=== PATIENT | male | born 1930 | race Caucasian/White ===

== ENCOUNTER 2016-06-29 11:15 | Emergency (ER) | payer MEDICARE, BC ==
[2016-06-29 12:37] LABS: Hematocrit 36 % (42-52); Mean Corpuscular HGB Conc 33 g/dl (31-36); Mean Corpuscular Hemoglobin 31 pg (27-31); Mean Corpuscular Volume 92 fL (80-94); Mean Platelet Volume 9 um3 (7.4-10.4); Red Blood Count 3.92 10^6/ul (4.0-5.4); Red Cell Distribution Width 14 % (10.5-15); White Blood Count 5.3 10^3/ul (3.5-10.8)
[2016-06-29 12:45] LABS: Albumin 3.8 g/dL (3.2-5.2); BUN/Creatinine Ratio 16.1 (8-20); Calcium 8.8 mg/dL (8.6-10.3); EGFR African American 46.6 (>60); EGFR Non-African American 36.2 (>60); Globulin 2.4 g/dL (2-4); Magnesium 2.2 mg/dL (1.9-2.7); Total Bilirubin 0.7 mg/dL (0.2-1.0); Total Protein 6.2 g/dL (6.4-8.9)
[2016-06-29 12:55] LABS: TSH (Thyroid Stimulating Horm) 2.63 mcIU/mL (0.34-5.60)
[2016-06-29 12:59] LABS: Potassium 4.9 mmol/L (3.5-5.0)
--- NOTE | 2016-06-29 13:08 | RAD ---
INDICATION: Syncope. COMPARISON: Comparison is made with a prior chest x-ray study from March 09, 2014. TECHNIQUE: A portable view of the chest was obtained. FINDINGS: There is a dual-chamber transvenous pacemaker present. The patient appears to be status post coronary artery bypass surgery. The heart is within normal limits in size. The lungs are clear. No pleural effusion is seen. IMPRESSION: POSTSURGICAL CHANGES, NO EVIDENCE FOR ACUTE FINDING.
[2016-06-29 16:37] VITALS: BP 135/50
--- NOTE | 2016-06-29 19:25 | ED ---
Carola Kidd Janilya, scribed for Luis Joseph MD on 06/29/16 at 1218 . Syncope/Near Syncope - HPI Summary HPI Summary: [place] 85 y/o [place] [facility]/ a sudden episode of near-syncope that occurred today at [employer] at approx 1100. 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 Pt reports dizziness, lightheadedness, and feeling of "almost passing out". A merchandise flow team member guided pt out by his arm outside , and his condition improved. Pt states he ate normally and did not have any urinary/bowel problems. Pt denies nausea, diaphoresis, pain, LOC. PMHx heart problems, pacemaker. No PMHx DM. - History Of Current Complaint Chief Complaint: EDSyncope Time Seen by Provider: 06/29/16 12:05 Hx Obtained From: Patient Onset/Duration: Sudden Onset, Lasting Hours, Resolved Context: Witnessed Associated Head Trauma: No Aggravating Factor(s): Nothing Alleviating Factor(s): Other - going outside Associated Signs And Symptoms: Dizzy, Lightheadedness - Allergies/Home Medications Allergies/Adverse Reactions: Allergies Allergy/AdvReac Type Severity Reaction Status Date / Time Niacin [From Niaspan] Allergy Mild Flushing, Verified 08/27/15 09:39 RASH PMH/Surg Hx/FS Hx/Imm Hx Endocrine/Hematology History: Denies: Hx Bone Marrow Disease, Hx Diabetes, Hx Sickle Cell Disease, Hx Thyroid Disease Cardiovascular History: Reports: Hx Angina, Hx Auto Implanted Cardiovert Defib, 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, Hx Hypertension - ON MEDICATION FOR , Hx Pacemaker/ICD - MEDTRONICA, Hx Syncope, Hx Valvular Heart Disease - UNSURE IF VALVE PROBLEMS, Other Cardiovascular Problems/Disorders Respiratory History: Denies: Hx Asthma, Hx Chronic Obstructive Pulmonary Disease (COPD) GI History: Reports: Hx Gastroesophageal Reflux Disease, Other GI Disorders - POLYP REMOVED Denies: Hx Ulcer History: Reports: Hx Renal Disease - CHRONIC RENAL INSUFFICIENCY, Other Problems/Disorders - BPH Musculoskeletal History: Reports: Hx Arthritis - JOINT REPLACEMENT, Other Musculoskeletal History - MUSCLE PROBLEMS IN LOWER BACK 05/2012- NO PROBLEM NOW Sensory History: Reports: Hx Cataracts - JOSE, Hx Contacts or Glasses, Hx Hearing Aid - JOSE Opthamlomology History: Reports: Hx Cataracts - JOSE, Hx Contacts or Glasses Neurological History: Reports: Hx Migraine - NONE IN THE PAST 2 MONTHS- USUALLY AFFECTS VISION, Hx Transient Ischemic Attacks (TIA) Psychiatric History: Denies: Hx Panic Disorder - Surgical History Surgery Procedure, Year, and Place: 1993-LEFT HIP REPLACEMENTREVISION LEFT HIP- [id number], [id number] E[facility] - CATARACT;RIGHT TOTAL KNEE-2008- [id number] EYE CATARACTBypass Surgeries [id number] 2005EVENT MONITOR - DR BYRD-LARGE COLON MASS/POLYP w/ APPE- [id number] KNEE [id number]/2011- EVENT MONITORCARPAL TUNNEL RELEASE-RIGHT. RIGHT KNEE IN [facility] Hx Anesthesia Reactions: No Infectious Disease History: No Infectious Disease History: Reports: Hx Shingles Denies: Hx Hepatitis, Hx Human Immunodeficiency Virus (HIV), Hx of Known/ Suspected MRSA, Hx Tuberculosis, Hx Known/Suspected VRE, Hx Known/Suspected VRSA , History Other Infectious Disease, Traveled Outside the [place] in Last 30 Days - Family History Known Family History: Positive: Hypertension - Social History Lives: With Family Alcohol Use: Daily Alcohol Amount: ONE OUNCE PORT nightly Substance Use Type: Reports: None Hx Tobacco Use: No Smoking Status (MU): Never Smoked Tobacco Have You Smoked in the Last Year: No Review of Systems Constitutional: Negative - pt denies feeling of pain Negative: Skin Diaphoresis Negative: Nausea Genitourinary: Negative - see hpi Neurological: Other - dizziness, lightheadedness, Positive: Syncope - near-syncope All Other Systems Reviewed And Are Negative: Yes Physical Exam Triage Information Reviewed: Yes Vital Signs On Initial Exam: Initial Vitals Temp Pulse Resp BP Pulse Ox 98.4 F 64 16 160/67 97 06/29/16 11:19 06/29/16 11:19 06/29/16 11:19 06/29/16 11:19 06/29/16 11:19 Vital Signs Reviewed: Yes Appearance: Positive: Well-Appearing, No Pain Distress Skin: Positive: Warm, Skin Color Reflects Adequate Perfusion, Dry Head/Face: Positive: Normal Head/Face Inspection Eyes: Positive: Normal ENT: Positive: Normal ENT inspection Neck: Positive: Supple, Nontender Respiratory/Lung Sounds: Positive: Clear to Auscultation, Breath Sounds Present Cardiovascular: Positive: Murmur - soft systolic ejection murmur Abdomen Description: Positive: Nontender, Soft Bowel Sounds: Positive: Present Musculoskeletal: Positive: Normal Neurological: Positive: Normal Psychiatric: Positive: Normal, Affect/Mood Appropriate Diagnostics - Vital Signs Vital Signs Temp Pulse Resp BP Pulse Ox 06/29/16 11:19 98.4 F 64 16 160/67 97 - Laboratory Lab Results: Lab Results 06/29/16 06/29/16 06/29/16 Range/Units 11:45 11:45 11:45 WBC 5.3 (3.5-10.8) 10^3/ul RBC 3.92 L (4.0-5.4) 10^6/ul Hgb 12.0 L (14.0-18.0) g/dl Hct 36 L (42-52) % MCV 92 (80-94) fL MCH 31 (27-31) pg MCHC 33 (31-36) g/dl RDW 14 (10.5-15) % Plt Count 127 L (150-450) 10^3/ul MPV 9 (7.4-10.4) um3 Neut % (Auto) 76.8 (38-83) % Lymph % (Auto) 13.1 L (25-47) % Cross % (Auto) 7.6 (1-9) % Eos % (Auto) 1.7 (0-6) % Baso % (Auto) 0.8 (0-2) % Absolute Neuts (auto) 4.1 (1.5-7.7) 10^3/ul Absolute Lymphs (auto) 0.7 L (1.0-4.8) 10^3/ul Absolute Monos (auto) 0.4 (0-0.8) 10^3/ul Absolute Eos (auto) 0.1 (0-0.6) 10^3/ul Absolute Basos (auto) 0 (0-0.2) 10^3/ul Absolute Nucleated RBC 0 10^3/ul Nucleated RBC % 0.1 Sodium 131 L (133-145) mmol/L Potassium 4.9 (3.5-5.0) mmol/L Chloride 100 L (101-111) mmol/L Carbon Dioxide 25 (22-32) mmol/L Anion Gap 6 (2-11) mmol/L BUN 29 H (6-24) mg/dL Creatinine 1.80 H (0.67-1.17) mg/dL Est GFR ( Amer) 46.6 (>60) Est GFR (Non-Af Amer) 36.2 (>60) BUN/Creatinine Ratio 16.1 (8-20) Glucose 107 H (70-100) mg/dL Lactic Acid 0.7 (0.5-2.0) mmol/L Calcium 8.8 (8.6-10.3) mg/dL Magnesium 2.2 (1.9-2.7) mg/dL Total Bilirubin 0.70 (0.2-1.0) mg/dL AST 21 (13-39) U/L ALT 11 (7-52) U/L Alkaline Phosphatase 74 (34-104) U/L Troponin I 0.00 (<0.04) ng/mL Total Protein 6.2 L (6.4-8.9) g/dL Albumin 3.8 (3.2-5.2) g/dL Globulin 2.4 (2-4) g/dL Albumin/Globulin Ratio 1.6 (1-3) TSH 2.63 (0.34-5.60) mcIU/mL 06/29/16 Range/Units 15:04 WBC (3.5-10.8) 10^3/ul RBC (4.0-5.4) 10^6/ul Hgb (14.0-18.0) g/dl Hct (42-52) % MCV (80-94) fL MCH (27-31) pg MCHC (31-36) g/dl RDW (10.5-15) % Plt Count (150-450) 10^3/ul MPV (7.4-10.4) um3 Neut % (Auto) (38-83) % Lymph % (Auto) (25-47) % Cross % (Auto) (1-9) % Eos % (Auto) (0-6) % Baso % (Auto) (0-2) % Absolute Neuts (auto) (1.5-7.7) 10^3/ul Absolute Lymphs (auto) (1.0-4.8) 10^3/ul Absolute Monos (auto) (0-0.8) 10^3/ul Absolute Eos (auto) (0-0.6) 10^3/ul Absolute Basos (auto) (0-0.2) 10^3/ul Absolute Nucleated RBC 10^3/ul Nucleated RBC % Sodium (133-145) mmol/L Potassium (3.5-5.0) mmol/L Chloride (101-111) mmol/L Carbon Dioxide (22-32) mmol/L Anion Gap (2-11) mmol/L BUN (6-24) mg/dL Creatinine (0.67-1.17) mg/dL Est GFR ( Amer) (>60) Est GFR (Non-Af Amer) (>60) BUN/Creatinine Ratio (8-20) Glucose (70-100) mg/dL Lactic Acid (0.5-2.0) mmol/L Calcium (8.6-10.3) mg/dL Magnesium (1.9-2.7) mg/dL Total Bilirubin (0.2-1.0) mg/dL AST (13-39) U/L ALT (7-52) U/L Alkaline Phosphatase (34-104) U/L Troponin I 0.01 (<0.04) ng/mL Total Protein (6.4-8.9) g/dL Albumin (3.2-5.2) g/dL Globulin (2-4) g/dL Albumin/Globulin Ratio (1-3) TSH (0.34-5.60) mcIU/mL Result Diagrams: 06/29/16 11:45 06/29/16 11:45 Lab Statement: Any lab studies that have been ordered have been reviewed, and results considered in the medical decision making process. - Radiology CXR Xray Interpretation: No Acute Changes - IMPRESSION: POSTSURGICAL CHANGES, NO EVIDENCE FOR ACUTE FINDING. Radiology Interpretation Completed By: Radiologist - EKG 1113 Cardiac Rate: NL - 69 bpm EKG Interpretation: atrial paced rhythm, normal rate Re-Evaluation - Re-Evaluation First Eval Re-Evaluation Time: 13:32 Change: Improved Comment: pt states that he feels normal. Course/Dx Course Of Treatment: Brad Lundberg had a near syncopal periond starting around 1100 that he felt coming on gradually and never had a LOC. He was observed here on the monitor and two troponins were negative. This sounds vagal to me and he will be D/C'd for F/U with his MD. - Diagnoses Provider Diagnoses: Near syncope Discharge - Discharge Plan Condition: Stable Disposition: HOME Patient Education Materials: Near Syncope (ED) Referrals: Andrez Porter MD [Primary Care Provider] - 2 Days Additional Instructions: Follow up with your primary care physician in 2 days. The documentation as recorded by the Carola hoang Janilya accurately reflects the service I personally performed and the decisions made by me, Luis Joseph MD.
== END 2016-06-29 16:37 | disposition home or self-care (01) ==
LOC: ED 11:15
DX: R55 Syncope and collapse (principal)
CPT/HCPCS: 36415; 71010; 80053; 83605; 83735; 84443; 84484; 85025; 93005; 99284

== ENCOUNTER → 2016-09-02 06:20 | Day surgery (SDC) | payer MEDICARE, OTHER ==
[~2016-09-02 06:20] MED LIST: Buffered Lidocaine 1% SYRIN* 3 ML/SYR SYRINGE INTRADERM ONE; Bupivacaine 0.25% W/EPI* 50 ML VIAL ONE; Lidocaine 2% PF* 5 ML VIAL ONE; Propofol* 10 MG/ML 20 ML BTL IV PUSH ONE; ceFAZolin 2 GM PREMIX(*) 2 GM/50 ML BAG IVPB ONE; fentaNYL* 50 MCG/ML 2 ML VIAL (100 MCG VIAL) ONE
[2016-09-02 10:26] VITALS: BP 150/70
== END | disposition home or self-care (01) ==
LOC: OR 06:20
PROVIDERS: ATTEND Plastic Surgery
DX: L57.0 Actinic keratosis (principal); C44.629 Squamous cell carcinoma of skin of left upper limb, including shoulder; I25.10 Atherosclerotic heart disease of native coronary artery without angina pectoris; Z95.1 Presence of aortocoronary bypass graft; Z95.5 Presence of coronary angioplasty implant and graft; I12.9 Hypertensive chronic kidney disease with stage 1 through stage 4 chronic kidney disease, or unspecified chronic kidney disease; N18.9 Chronic kidney disease, unspecified; Z95.0 Presence of cardiac pacemaker; Z96.651 Presence of right artificial knee joint; Z96.642 Presence of left artificial hip joint; Z79.82 Long term (current) use of aspirin
CPT/HCPCS: 88305; 88331; 88332; J0690; J2704; J3010

== ENCOUNTER 2016-10-25 16:37 | Emergency (ER) | payer MEDICARE, OTHER ==
--- NOTE | 2016-10-25 17:51 | UC ---
Skin Complaint HPI - HPI Summary HPI Summary: PATIENT PRESENTS WITH BROWN SMALL TICK SUPERIOR AND LATERAL TO THE LEFT ELBOW. HE STATES THE TICK MAY HAVE BEEN ON FOR A FEW HOURS, BUT NO MORE THAN 24 HOURS. DENIES RASH, EM, JOINT ACHES, OR MARTINEZ. HE IS OTHERWISE HEALTHY. - History of Current Complaint Hx Obtained From: Patient, Family/Supervisor Of Operations Onset/Duration: Sudden Onset Skin Exposure Onset/Duration: Minutes Ago Timing: Constant Onset Severity: Mild Current Severity: Mild Pain Intensity: 2 Pain Scale Used: 0-10 Numeric Location: Other - LEFT ARM Aggravating: Nothing Alleviating: Nothing Associated Signs & Symptoms: Positive: Negative Related History: Possible Reaction to: Insect <Liat Byrne - Last Filed: 10/25/16 17:46> <Reina Coughlin - Last Filed: 10/25/16 18:58> - History of Current Complaint Chief Complaint: UCSkin Time Seen by Provider: 10/25/16 17:10 Stated Complaint: TICK - Allergy/Home Medications Allergies/Adverse Reactions: Allergies Allergy/AdvReac Type Severity Reaction Status Date / Time Niacin [From Niaspan] Allergy Mild Flushing, Verified 09/02/16 06:27 RASH POISON TAMMY Allergy Unknown Uncoded 09/02/16 06:27 Reaction Details Review of Systems Constitutional: Negative Skin: Other - SMALL ERYTHEMATOUS AREA SURROUNDING BROWN TICK WITHOUT EM RASH Eyes: Negative Respiratory: Negative Cardiovascular: Negative Motor: Negative Neurovascular: Negative Psychological: Negative All Other Systems Reviewed And Are Negative: Yes <Liat Byrne - Last Filed: 10/25/16 17:46> PMH/Surg Hx/FS Hx/Imm Hx Previously Healthy: Yes Endocrine History Of: Denies: Diabetes, Thyroid Disease Cardiovascular History Of: Reports: Cardiac Disorders - bypass 7, Hypertension - ON MEDICATION FOR, Pacemaker/ICD - [employer]ON[employer] Respiratory History Of: Reports: Bronchitis - HX OF IN THE PAST Denies: COPD, Asthma GI/ History Of: Reports: Renal Disease - CHRONIC RENAL INSUFFICIENCY Denies: Ulcer Neurological History Of: Reports: TIA, Migraine - HX OF- PATIENT STATES NOT RECENTLY - Surgical History Surgical History: Yes Surgery Procedure, Year, and Place: 1993-LEFT HIP REPLACEMENTREVISION LEFT HIP- [id number], [id number] EYE - CATARACT;RIGHT TOTAL KNEE-2008- [id number] EYE CATARACTBypass Surgeries [id number] 2005EVENT MONITOR - DR BYRD-LARGE COLON MASS/POLYP w/ APPE- [id number]--[id number] KNEE [id number]/2011- EVENT MONITORCARPAL TUNNEL RELEASE-RIGHT. RIGHT KNEE IN [facility] - Family History Known Family History: Positive: None, Hypertension - Social History Occupation: Retired Lives: With Family Alcohol Use: Occasionally Alcohol Amount: ONE OUNCE PORT nightly Substance Use Type: None Smoking Status (MU): Never Smoked Tobacco Have You Smoked in the Last Year: No - Immunization History Most Recent Influenza Vaccination: 2012 Most Recent Tetanus Shot: unknown Most Recent Pneumonia Vaccination: 2006 <Liat Byrne - Last Filed: 10/25/16 17:46> Physical Exam Triage Information Reviewed: Yes Appearance: Well-Appearing, No Pain Distress, Well-Nourished Vital Signs: Initial Vital Signs Temp 96.6 F 10/25/16 17:04 Pulse 64 10/25/16 17:04 Resp 18 10/25/16 17:04 Pulse Ox 98 10/25/16 17:04 Vital Signs Reviewed: Yes Eye Exam: Normal Eyes: Positive: Conjunctiva Clear Neck exam: Normal Neck: Positive: Supple, No Lymphadenopathy Respiratory Exam: Normal Respiratory: Positive: Chest non-tender Cardiovascular Exam: Normal Cardiovascular: Positive: RRR Musculoskeletal: Positive: Strength Intact, ROM Intact Neurological Exam: Normal Psychological: Positive: Normal Response To Family Skin: Positive: Other - SMALL ERTYEMATOUS AREA OVER LEFT ELBOW WITH BROWN TICK ATTACHED IN CENTER. NO EM RASH <Liat Byrne - Last Filed: 10/25/16 17:46> Vital Signs: Initial Vital Signs Temp 96.6 F 10/25/16 17:04 Pulse 64 10/25/16 17:04 Resp 18 10/25/16 17:04 Pulse Ox 98 10/25/16 17:04 <Reina Coughlin - Last Filed: 10/25/16 18:58> Course/Dx - Course Course Of Treatment: SMALL ERYTHEMATOUS AREA SUPERIOR AND LATERAL TO THE LEFT ELBOW WITHOUT EM RASH. TICK ATTACHED FOR LESS THAN 24 HOURS. BROWN TICK, NOT LIKELY A DEER TICK. NO NEED FOR PROPHYLAXIS BASED ON THE TIMING AND COLOR OF TICK. PATIENT AGREES AND WILL FOLLOW UP NEEDED. GIULIA DISH SOAP TO LOOSEN TICK AND TICK TWISTERS WITH EFFECT. - Differential Diagnoses - Skin Complaint Differential Diagnoses: Tick Born Illness, Other - TICK, DEER TICK, OTHER INSECT - Diagnoses Provider Diagnoses: TICK BITE <Liat Byrne - Last Filed: 10/25/16 17:46> Discharge <Liat Byrne - Last Filed: 10/25/16 17:46> <Reina Coughlin - Last Filed: 10/25/16 18:58> - Discharge Plan Condition: Stable Disposition: HOME Patient Education Materials: Tick Bite (ED) Referrals: Andrez Porter MD [Primary Care Provider] - Additional Instructions: Follow up with PCP as needed As discussed, this tick bite does not require antibiotics and you are at a low risk for Lyme disease based on the timing of the tick duration and the type/ color of tick removed. Attestation Statement User Type: Provider - I was available for consult. This patient was seen by the SONY. The patient was not presented to, seen by, or examined by me. <Reina Coughlin - Last Filed: 10/25/16 18:58>
== END 2016-10-25 17:55 | disposition home or self-care (01) ==
LOC: UCEAST 16:37
DX: S50.362A Insect bite (nonvenomous) of left elbow, initial encounter (principal); W57.XXXA Bitten or stung by nonvenomous insect and other nonvenomous arthropods, initial encounter; Y93.9 Activity, unspecified
CPT/HCPCS: 99212; G0463

== ENCOUNTER 2017-06-22 19:17 | Emergency (ER) | payer MEDICARE, BC ==
[2017-06-22 19:31] VITALS: BP 154/66
[2017-06-22] MEDS ORDERED: Tetan/Diph/Pertus SYR(Tdap)* 0.5 ML SYR(BOOSTRIX) use SYR IM ONE (19:49)
--- NOTE | 2017-06-22 19:53 | UC ---
Laceration HPI - HPI Summary HPI Summary: Pt presents with laceration to left middle finger sustained about a half hour prior to his arrival to . He was using a table saw to cut kindling for his fire place, when the wood slipped and he cut his finger. Denies previous injury , numbness, tingling, or decreased sensation. Unsure when last tetanus shot was. - History Of Current Complaint Chief Complaint: UCLaceration Stated Complaint: FINGER LAC Time Seen by Provider: 06/22/17 19:38 Hx Obtained From: Patient Laceration Location: Finger Mechanism Of Injury: Sharp Trauma Onset/Duration: Sudden Onset Severity: Mild Pain Intensity: 2 Pain Scale Used: 0-10 Numeric - Allergies/Home Medications Allergies/Adverse Reactions: Allergies Allergy/AdvReac Type Severity Reaction Status Date / Time Niacin [From Niaspan] Allergy Mild Flushing, Verified 06/22/17 19:31 RASH POISON TAMMY Allergy Unknown Uncoded 06/22/17 19:31 Reaction Details PMH/Surg Hx/FS Hx/Imm Hx - Additional Past Medical History Additional PMH: BPH Endocrine History: Dyslipidemia Cardiovascular History: Cardiac Disease - Surgical History Surgical History: Yes Surgery Procedure, Year, and Place: 1993-LEFT HIP REPLACEMENTREVISION LEFT HIP- [id number], [id number] EYE - CATARACT;RIGHT TOTAL KNEE-2008- [id number] EYE CATARACTBypass Surgeries [id number] 2004EVENT MONITOR - DR BYRD-LARGE COLON MASS/POLYP w/ APPE- [id number]--WLWHL KNEE [id number]/2011- EVENT MONITORCARPAL TUNNEL RELEASE-RIGHT. RIGHT KNEE IN [facility] - Family History Known Family History: Positive: None, Hypertension - Social History Occupation: Retired Lives: With Family Alcohol Use: Occasionally Alcohol Amount: ONE OUNCE PORT nightly Substance Use Type: None Smoking Status (MU): Never Smoked Tobacco Have You Smoked in the Last Year: No - Immunization History Most Recent Influenza Vaccination: 2012 Most Recent Tetanus Shot: unknown Most Recent Pneumonia Vaccination: 2006 Review of Systems Constitutional: Negative Skin: Other - 0.5cm laceration to left middle finger Motor: Negative Neurovascular: Negative Musculoskeletal: Negative Neurological: Negative Psychological: Negative All Other Systems Reviewed And Are Negative: Yes Physical Exam Triage Information Reviewed: Yes Appearance: Well-Appearing, No Pain Distress, Well-Nourished Vital Signs: Initial Vital Signs Temp 98.6 F 06/22/17 19:28 Pulse 66 06/22/17 19:28 Resp 12 06/22/17 19:28 BP 154/66 06/22/17 19:28 Pulse Ox 99 06/22/17 19:28 Vital Signs Reviewed: Yes Respiratory: Positive: Normal breath sounds, No respiratory distress Cardiovascular: Positive: Pulses Normal, Brisk Capillary Refill - Left middle finger distal to laceration Musculoskeletal: Positive: Strength Intact - Left middle finger, ROM Intact - Left middle finger, No Edema - Left middle finger, Other: - NTTP Left middle finger Neurological: Positive: Alert, Other: - Sensations intact Left middle finger above and below point of laceration Psychological: Positive: Age Appropriate Behavior Skin: Positive: Other - 0.5cm vertical linear laceration along the midline of the nail. Nail is not avulsed. Bleeding was stopped with direct pressure. No cuticle or nail fold involvement. Laceration Course/Dx - Course/Dx Course Of Treatment: Finger XR: NO EVIDENCE FOR FRACTURE, IF THE PATIENT'S SYMPTOMS PERSIST RECOMMEND FOLLOW-UP IMAGING. Nail laceration - nail is not avulsed and will likely remain in place. The wound was pressure irrigated with 100mL saline. Dermabond was placed at the site of the laceration to aide integrity and a telfa and tube gauze dressing was placed. - Differential Dx - Laceration/Wound Provider Diagnoses: 0.5cm laceration to middle finger nail Discharge - Discharge Plan Condition: Stable Disposition: HOME Patient Education Materials: Skin Adhesive Care (ED) Referrals: No Primary Care Phys,NOPCP [Primary Care Provider] - Additional Instructions: If you develop a fever, shortness of breath, chest pain, new or worsening symptoms - please call your PCP or go to the ED. Your blood pressure was high at todays visit. Please see your primary provider within 4 weeks for recheck and re-evaluation.
--- NOTE | 2017-06-22 20:11 | RAD ---
INDICATION: Laceration to distal left middle finger COMPARISON: None. TECHNIQUE: 3 views of the left middle finger were obtained. FINDINGS: The bones are normal alignment. Joint spaces appear maintained. No fracture is seen. IMPRESSION: NO EVIDENCE FOR FRACTURE, IF THE PATIENT'S SYMPTOMS PERSIST RECOMMEND FOLLOW-UP IMAGING.
== END 2017-06-22 20:50 | disposition home or self-care (01) ==
LOC: UCEAST 19:17
DX: S61.213A Laceration without foreign body of left middle finger without damage to nail, initial encounter (principal); W31.2XXA Contact with powered woodworking and forming machines, initial encounter; Y93.89 Activity, other specified; Y92.009 Unspecified place in unspecified non-institutional (private) residence as the place of occurrence of the external cause; Z72.89 Other problems related to lifestyle
CPT/HCPCS: 12001; 73140; 90715; 99211; G0463

== ENCOUNTER 2017-07-05 11:28 | Emergency (ER) | payer MEDICARE, BC ==
[2017-07-05 11:55] VITALS: BP 102/64
--- NOTE | 2017-07-05 12:01 | UC ---
Respiratory Complaint HPI - HPI Summary HPI Summary: Pt presents accompanied by with complaints of vomiting, SOB, cough, and elevated BP. Pt is shallow breathing - the majority of the history is provided by his . She tells me that pt has had a cough for 1 week that has been getting progressively worse. Hasn't been eating much and has been very fatigued. 2.5 days ago he began vomiting and not tolerating food or liquids po. Yesterday his BP was 214/96 per and they called his PCP who, I am told, started him on a new medication - but he has been unable to take it due to vomiting. Pt says that he does feel SOB and that he cannot get a good breath. - History of Current Complaint Chief Complaint: UCGeneralIllness Stated Complaint: RESP COMPLAINT Time Seen by Provider: 07/05/17 12:01 Hx Obtained From: Patient Onset/Duration: Gradual Onset Severity Initially: Moderate Severity Currently: Severe Pain Intensity: 0 Character: Cough: Productive - Allergies/Home Medications Allergies/Adverse Reactions: Allergies Allergy/AdvReac Type Severity Reaction Status Date / Time Niacin [From Niaspan] Allergy Mild Flushing, Verified 07/05/17 11:44 RASH POISON TAMMY Allergy Unknown Uncoded 07/05/17 11:44 Reaction Details Home Medications: Home Medications Donepezil TAB* [Aricept 5 MG TAB*] 10 mg PO DAILY 07/05/17 [History Confirmed ] Metoprolol Succinate [Metoprolol Succinate ER] 25 mg PO DAILY 07/05/17 [History Confirmed 07/05/17] PMH/Surg Hx/FS Hx/Imm Hx - Additional Past Medical History Additional PMH: BPH Endocrine History: Dyslipidemia Cardiovascular History: Hypertension - Surgical History Surgical History: Yes Surgery Procedure, Year, and Place: 1993-LEFT HIP REPLACEMENTREVISION LEFT HIP- [id number], [id number] EYE - CATARACT;RIGHT TOTAL KNEE-2008- [id number] EYE CATARACTBypass Surgeries [id number] 2004EVENT MONITOR - DR BYRD-LARGE COLON MASS/POLYP w/ APPE- [id number]--YLBRA KNEE [id number]/2011- EVENT MONITORCARPAL TUNNEL RELEASE-RIGHT. RIGHT KNEE IN [facility] - Family History Known Family History: Positive: None, Hypertension - Social History Occupation: Retired Lives: With Family Alcohol Use: Occasionally Alcohol Amount: ONE OUNCE PORT nightly Substance Use Type: None Smoking Status (MU): Never Smoked Tobacco Have You Smoked in the Last Year: No - Immunization History Most Recent Influenza Vaccination: 2012 Most Recent Tetanus Shot: unknown Most Recent Pneumonia Vaccination: 2006 Review of Systems Constitutional: Fatigue Skin: Negative Eyes: Negative ENT: Negative Respiratory: Shortness Of Breath, Cough Cardiovascular: Negative Gastrointestinal: Vomiting, Diarrhea, Nausea Genitourinary: Negative Neurovascular: Negative Musculoskeletal: Negative Neurological: Weakness Psychological: Negative All Other Systems Reviewed And Are Negative: Yes Physical Exam Triage Information Reviewed: Yes Appearance: Ill-Appearing, Thin, Other: - Pt is sitting slumped over in the chair with slow and shallow breathing. Coughing productive sputum Vital Signs: Initial Vital Signs Temp 97.3 F 07/05/17 11:48 Pulse 61 07/05/17 11:48 Resp 14 07/05/17 11:48 BP 102/64 07/05/17 11:48 Pulse Ox 95 07/05/17 11:48 Vital Signs Reviewed: Yes Eyes: Positive: Conjunctiva Clear. Negative: Conjunctiva Inflamed, Discharge ENT: Positive: Hearing grossly normal, Pharynx normal, Nasal congestion, Nasal drainage, TMs normal, Uvula midline. Negative: Pharyngeal erythema, TM bulging , TM dull, TM red, Tonsillar swelling, Tonsillar exudate, Hoarse voice, Sinus tenderness Neck: Positive: Supple, Nontender, No Lymphadenopathy Respiratory: Positive: Chest non-tender, No accessory muscle use, Decreased breath sounds, Crackles - RLL Cardiovascular: Positive: RRR, No Murmur, Pulses Normal Neurological: Positive: Fatigued Skin: Negative: rashes UC Diagnostic Evaluation - Laboratory O2 Sat by Pulse Oximetry: 95 Respiratory Course/Dx - Course Course Of Treatment: Due to his inability to tolerate po liquids or solids, diarrhea, shallow breathing and comorbidities - I have advised the patient to seek further medical evaluation in the ED. They refused ambulance transfer and elected to go by private vehicle. Left in stable condition - Differential Dx/Diagnosis Provider Diagnoses: Vomiting. Diarrhea. Cough. SOB Discharge - Discharge Plan Condition: Stable Disposition: OTHER Discharge Disposition Comment: to [facility] [place] private car Referrals: No Primary Care Phys,NOPCP [Primary Care Provider] - Additional Instructions: The provider that examined you today recommended you go to the Emergency Room for further evaluation of your shortness of breath, vomiting, and elevated blood pressure yesterday.
== END 2017-07-05 12:20 ==
LOC: UCEAST 11:28
DX: R11.10 Vomiting, unspecified (principal); R19.7 Diarrhea, unspecified; R05 Cough; R06.02 Shortness of breath; N40.0 Benign prostatic hyperplasia without lower urinary tract symptoms; E78.5 Hyperlipidemia, unspecified; I10 Essential (primary) hypertension; Z96.642 Presence of left artificial hip joint
CPT/HCPCS: 99212; G0463

== ENCOUNTER 2017-07-05 12:38 | Emergency (ER) | payer MEDICARE, BC ==
[2017-07-05 15:05] LABS: ABS Basophils 0 10^3/ul (0-0.2); ABS Eosinophils 0 10^3/ul (0-0.6); ABS Lymphocytes 0.7 10^3/ul (1.0-4.8); ABS Monocytes 0.6 10^3/ul (0-0.8); ABS Neutrophils 7.4 10^3/ul (1.5-7.7); ABS Nucleated RBC 0 10^3/ul; Eosinophil % 0.1 % (0-6); Hematocrit 43 % (42-52); Hemoglobin 14.9 g/dl (14.0-18.0); Lymphocyte % 8.2 % (25-47); Mean Corpuscular HGB Conc 35 g/dl (31-36); Mean Corpuscular Hemoglobin 31 pg (27-31); Mean Corpuscular Volume 90 fL (80-94); Mean Platelet Volume 8 um3 (7.4-10.4); Nucleated Red Blood Cells % 0.2; Platelet Count 148 10^3/ul (150-450); Red Blood Count 4.78 10^6/ul (4.0-5.4); Red Cell Distribution Width 13 % (10.5-15); White Blood Count 8.7 10^3/ul (3.5-10.8)
[2017-07-05] MEDS ORDERED: Ondansetron INJ* 2 MG/ML VIAL ONE (15:07)
[2017-07-05] MEDS ORDERED: NS 0.9% 1000 ML* 1,000 ML IV ONE (15:16)
[2017-07-05] MEDS ORDERED: Ondansetron INJ* 2 MG/ML VIAL IV ONE (15:16)
[2017-07-05 15:21] LABS: EGFR Non-African American 48.3 (>60)
--- NOTE | 2017-07-05 15:31 | RAD ---
INDICATION: Cough. Weakness COMPARISON: June 29, 2016 TECHNIQUE: PA and lateral dual-energy views were obtained. FINDINGS: Bones/Soft Tissues: There are no acute bony findings. There is sternotomy. There is left-sided cardiac pacemaker and a cardiac event monitor Cardiomediastinal: The cardiomediastinal silhouette is normal. Lungs: There are no infiltrates. There is mild hyperinflation Pleura: There are no pleural effusions. Other: None IMPRESSION: NO ACTIVE DISEASE
--- NOTE | 2017-07-05 15:32 | RAD ---
INDICATION: Cough. Weakness. Nausea and vomiting. COMPARISON: None TECHNIQUE: Erect and supine views of the abdomen are submitted. FINDINGS: Bones: There are no acute bony findings. There is spondylitic change of the lumbar spine. There is left hip arthroplasty Soft tissues: The soft tissues appear normal. The psoas margins are sharp. Bowel gas pattern: Normal Calcifications: There are no abnormal calcifications. Other: None IMPRESSION: NO ACUTE DIAGNOSTIC FINDINGS.
[2017-07-05 18:01] LABS: Urine Appearance Cloudy; Urine Blood Negative (Negative); Urine Color Yellow; Urine Ketones Negative (Negative); Urine Protein 2+(100 mg/dL) (Negative); Urine Specific Gravity 1.013 (1.010-1.030); Urine Urobilinogen Negative (Negative)
[2017-07-05 18:14] VITALS: BP 147/88
--- NOTE | 2017-07-06 17:37 | ED ---
Brigitte Kidd Edward, scribed for Andrez Chavez MD on 07/05/17 at 1458 . Complex/Multi-Sys Presentation - HPI Summary HPI Summary: 86 y/o male presents to the ED c/o intermittent N/V starting two days ago. Pt has not been able to eat for the past wo days. This morning the pt threw up his food. Associated sx: confusion this morning, chills, rhinorrhea, cough. Pt's states he did not know where he was this morning, which was not his baseline. Denies ABD sx. Sx not aggravated or alleviated by anything. Denies sore throat. PMHx dementia. - History Of Current Complaint Chief Complaint: EDNauseaVomitDiarrh Time Seen by Provider: 07/05/17 14:55 Hx Obtained From: Patient Onset/Duration: Lasting Days Timing: Intermittent, Lasting: Associated Signs And Symptoms: Positive: Confusion, Cough, Nausea, Vomiting, Other - rhinorrhea, chills - Allergies/Home Medications Allergies/Adverse Reactions: Allergies Allergy/AdvReac Type Severity Reaction Status Date / Time Niacin [From [facility]] Allergy Mild Flushing, Verified 07/05/17 12:48 RASH POISON TAMMY Allergy Unknown Uncoded 07/05/17 12:48 Reaction Details Home Medications: Home Medications Cephalexin CAP* [Keflex 500 CAP*] 500 cap PO BID PRN 07/05/17 [History Confirmed 07/05/17] hydrALAZINE TAB* [Apresoline TAB*] 25 mg PO DAILY 07/05/17 [History Confirmed ] PMH/Surg Hx/FS Hx/Imm Hx Previously Healthy: No Endocrine/Hematology History: Denies: Hx Bone Marrow Disease, Hx Diabetes, Hx Sickle Cell Disease, Hx Thyroid Disease Cardiovascular History: Reports: Hx Angina, Hx Auto Implanted Cardiovert Defib, 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 SANDHU H&P Musculoskeletal History: Reports: Hx Arthritis - JOINT REPLACEMENT, Hx Tendonitis - HX OF, Other Musculoskeletal History - MUSCLE PROBLEMS IN LOWER BACK 05/2012- NO PROBLEM NOW Sensory History: Reports: Hx Cataracts - JOSE, Hx Contacts or Glasses - READING, Hx Hearing Aid - BILATERAL Opthamlomology History: Reports: Hx Cataracts - JOSE, Hx Contacts or Glasses - READING Neurological History: Reports: Hx Migraine - HX OF- PATIENT STATES NOT RECENTLY , Hx Transient Ischemic Attacks (TIA) Psychiatric History: Denies: Hx Panic Disorder - Surgical History Surgery Procedure, Year, and Place: 1993-LEFT HIP REPLACEMENTREVISION LEFT HIP- [id number], [id number] EYE - CATARACT;RIGHT TOTAL KNEE-2008- [id number] EYE CATARACTBypass Surgeries [id number] 2004EVENT MONITOR - DR BYRD-LARGE COLON MASS/POLYP w/ APPE- [id number]--RNSYN KNEE [id number]/2011- EVENT MONITORCARPAL TUNNEL RELEASE-RIGHT. RIGHT KNEE IN [facility] Hx Anesthesia Reactions: No Infectious Disease History: No Infectious Disease History: Reports: Hx Shingles Denies: Hx Hepatitis, Hx Human Immunodeficiency Virus (HIV), Hx of Known/ Suspected MRSA, Hx Tuberculosis, Hx Known/Suspected VRE, Hx Known/Suspected VRSA , History Other Infectious Disease, Traveled Outside the [place] in Last 30 Days - Family History Known Family History: Positive: None, Hypertension - Social History Alcohol Use: Occasionally Alcohol Amount: ONE OUNCE PORT nightly Substance Use Type: Reports: None Hx Tobacco Use: No Smoking Status (MU): Never Smoked Tobacco Have You Smoked in the Last Year: No Review of Systems Positive: Chills Eyes: Negative Positive: Nasal Discharge - rhinorrhea Cardiovascular: Negative Positive: Cough Positive: Vomiting, Nausea Genitourinary: Negative Musculoskeletal: Negative Skin: Negative Neurological: Other - confusion Psychological: Normal All Other Systems Reviewed And Are Negative: Yes Physical Exam - Summary Physical Exam Summary: VITAL SIGNS: Reviewed. GENERAL: Patient is an elderly fragile male who is lying comfortable in the stretcher. Patient is not in any acute respiratory distress. HEAD AND FACE: No signs of trauma. No ecchymosis, hematomas or skull depressions. No sinus tenderness. EYES: PERRLA, EOMI x 2, No injected conjunctiva, no nystagmus. EARS: Hearing grossly intact. Ear canals and tympanic membranes are within normal limits. MOUTH: Dry oral mucosa. NECK: Supple, trachea is midline, no adenopathy, no JVD, no carotid bruit, no c- spine tenderness, neck with full ROM. CHEST: Symmetric, no tenderness at palpation LUNGS: Crackles at both bases CVS: Regular rate and rhythm, S1 and S2 present, no murmurs or gallops appreciated. ABDOMEN: Soft, non-tender. No signs of distention. No rebound no guarding, and no masses palpated. Bowel sounds are normal. EXTREMITIES: FROM in all major joints, no edema, no cyanosis or clubbing. There is L calf tenderness. Positive Kisha's sign. NEURO: Alert and oriented x 3. No acute neurological deficits. Speech is normal and follows commands. SKIN: Dry and warm Triage Information Reviewed: Yes Vital Signs On Initial Exam: Initial Vitals Temp Pulse Resp BP Pulse Ox 97.2 F 68 16 113/58 96 07/05/17 12:48 07/05/17 12:48 07/05/17 12:48 07/05/17 12:48 07/05/17 12:48 Vital Signs Reviewed: Yes Diagnostics - Vital Signs Vital Signs Temp Pulse Resp BP Pulse Ox 07/05/17 12:48 97.2 F 68 16 113/58 96 - Laboratory Lab Results: Lab Results 07/05/17 07/05/17 07/05/17 Range/Units 14:56 14:56 14:56 WBC 8.7 (3.5-10.8) 10^3/ul RBC 4.78 (4.0-5.4) 10^6/ul Hgb 14.9 (14.0-18.0) g/dl Hct 43 (42-52) % MCV 90 (80-94) fL MCH 31 (27-31) pg MCHC 35 (31-36) g/dl RDW 13 (10.5-15) % Plt Count 148 L (150-450) 10^3/ul MPV 8 (7.4-10.4) um3 Neut % (Auto) 85.0 H (38-83) % Lymph % (Auto) 8.2 L (25-47) % Kemper % (Auto) 6.5 (1-9) % Eos % (Auto) 0.1 (0-6) % Baso % (Auto) 0.2 (0-2) % Absolute Neuts (auto) 7.4 (1.5-7.7) 10^3/ul Absolute Lymphs (auto) 0.7 L (1.0-4.8) 10^3/ul Absolute Monos (auto) 0.6 (0-0.8) 10^3/ul Absolute Eos (auto) 0 (0-0.6) 10^3/ul Absolute Basos (auto) 0 (0-0.2) 10^3/ul Absolute Nucleated RBC 0 10^3/ul Nucleated RBC % 0.2 Sodium 126 L (133-145) mmol/L Potassium 3.6 (3.5-5.0) mmol/L Chloride 90 L (101-111) mmol/L Carbon Dioxide 28 (22-32) mmol/L Anion Gap 8 (2-11) mmol/L BUN 19 (6-24) mg/dL Creatinine 1.40 H (0.67-1.17) mg/dL Est GFR ( Amer) 62.1 (>60) Est GFR (Non-Af Amer) 48.3 (>60) BUN/Creatinine Ratio 13.6 (8-20) Glucose 150 H (70-100) mg/dL Lactic Acid 1.2 (0.5-2.0) mmol/L Calcium 9.2 (8.6-10.3) mg/dL Total Bilirubin 0.80 (0.2-1.0) mg/dL AST 16 (13-39) U/L ALT 10 (7-52) U/L Alkaline Phosphatase 109 H (34-104) U/L Troponin I 0.00 (<0.04) ng/mL Total Protein 6.6 (6.4-8.9) g/dL Albumin 3.9 (3.2-5.2) g/dL Globulin 2.7 (2-4) g/dL Albumin/Globulin Ratio 1.4 (1-3) Lipase 15 (11.0-82.0) U/L Urine Color Urine Appearance Urine pH (5-9) Ur Specific Ethel (1.010-1.030) Urine Protein (Negative) Urine Ketones (Negative) Urine Blood (Negative) Urine Nitrate (Negative) Urine Bilirubin (Negative) Urine Urobilinogen (Negative) Ur Leukocyte Esterase (Negative) Urine WBC (Auto) (Absent) Urine RBC (Auto) (Absent) Urine Bacteria (Absent) Urine Glucose (Negative) Influenza A (Rapid) (Negative) Influenza B (Rapid) (Negative) 07/05/17 07/05/17 Range/Units 15:44 17:47 WBC (3.5-10.8) 10^3/ul RBC (4.0-5.4) 10^6/ul Hgb (14.0-18.0) g/dl Hct (42-52) % MCV (80-94) fL MCH (27-31) pg MCHC (31-36) g/dl RDW (10.5-15) % Plt Count (150-450) 10^3/ul MPV (7.4-10.4) um3 Neut % (Auto) (38-83) % Lymph % (Auto) (25-47) % Kemper % (Auto) (1-9) % Eos % (Auto) (0-6) % Baso % (Auto) (0-2) % Absolute Neuts (auto) (1.5-7.7) 10^3/ul Absolute Lymphs (auto) (1.0-4.8) 10^3/ul Absolute Monos (auto) (0-0.8) 10^3/ul Absolute Eos (auto) (0-0.6) 10^3/ul Absolute Basos (auto) (0-0.2) 10^3/ul Absolute Nucleated RBC 10^3/ul Nucleated RBC % Sodium (133-145) mmol/L Potassium (3.5-5.0) mmol/L Chloride (101-111) mmol/L Carbon Dioxide (22-32) mmol/L Anion Gap (2-11) mmol/L BUN (6-24) mg/dL Creatinine (0.67-1.17) mg/dL Est GFR ( Amer) (>60) Est GFR (Non-Af Amer) (>60) BUN/Creatinine Ratio (8-20) Glucose (70-100) mg/dL Lactic Acid (0.5-2.0) mmol/L Calcium (8.6-10.3) mg/dL Total Bilirubin (0.2-1.0) mg/dL AST (13-39) U/L ALT (7-52) U/L Alkaline Phosphatase (34-104) U/L Troponin I (<0.04) ng/mL Total Protein (6.4-8.9) g/dL Albumin (3.2-5.2) g/dL Globulin (2-4) g/dL Albumin/Globulin Ratio (1-3) Lipase (11.0-82.0) U/L Urine Color Yellow Urine Appearance Cloudy Urine pH 6.0 (5-9) Ur Specific Ethel 1.013 (1.010-1.030) Urine Protein 2+(100 mg/dl) H (Negative) Urine Ketones Negative (Negative) Urine Blood Negative (Negative) Urine Nitrate Negative (Negative) Urine Bilirubin Negative (Negative) Urine Urobilinogen Negative (Negative) Ur Leukocyte Esterase Negative (Negative) Urine WBC (Auto) Trace(0-5/hpf) (Absent) Urine RBC (Auto) Absent (Absent) Urine Bacteria Absent (Absent) Urine Glucose Negative (Negative) Influenza A (Rapid) Negative (Negative) Influenza B (Rapid) Negative (Negative) Result Diagrams: 07/05/17 14:56 07/05/17 14:56 Lab Statement: Any lab studies that have been ordered have been reviewed, and results considered in the medical decision making process. - Radiology CXR Xray Interpretation: No Acute Changes Radiology Interpretation Completed By: Radiologist - ED PHYSICIAN REVIEWS AND AGREES ABD XR Xray Interpretation: No Acute Changes - NO ACUTE DIAGNOSTIC FINDINGS Radiology Interpretation Completed By: Radiologist - EKG 1 EKG Interpretation: 14:50 - Atrial paced rhythm @ 61 BPM w/ no ST elevations. Re-Evaluation - Re-Evaluation 1 Re-Evaluation Time: 17:45 Comment: Pt ambulated in the ED. Discussed plan of care. Pt will be d/c home Complex Multi-Symp Course/Dx Assessment/Plan: 86 y/o male presents to the ED c/o intermittent N/V starting two days ago. Pt has not been able to eat for the past wo days. This morning the pt threw up his food. Associated sx: confusion this morning, chills, rhinorrhea, cough. Pt's states he did not know where he was this morning, which was not his baseline. Denies ABD sx. Sx not aggravated or alleviated by anything. Denies sore throat. PMHx dementia. EKG @ 14:50 - Atrial paced rhythm @ 61 BPM w/ no ST elevations. CXR SHOWS NO ACTIVE DISEASE. ABD XR NEGATIVE. Test results are without significant abnormalities except slight decrease in sodium 126 , creatinine 1.4, UA uti. Influenza a and b negative. Pt is ambulatory. I offered the pt and admission since she is hyponatremic; however the pt was instructed to increase salt and water intake when he goes home. If the pt develops confusion, weakness or is unable to ambulate he must return to the ed for further workup and management. I decided not to do a head ct b/c the neuro exam is intact, The pt and were instructed to return to the ED for further workup and management if the pts sx return or worsen; they understand and agree. - Diagnoses Differential Diagnoses/HQI/PQRI: Urinary Tract Infection, Other - weakness, hyponatremia Provider Diagnoses: Weakness, Hyponatremia Discharge - Discharge Plan Condition: Stable Disposition: HOME Prescriptions: Ondansetron ODT TAB* [Zofran 4 MG Odt TAB*] 4 mg PO Q8H PRN #10 tab.odt PRN Reason: Vomiting Patient Education Materials: Hyponatremia (ED), Weakness (ED) Referrals: Andrez Porter MD [Primary Care Provider] - 4 Days (PLEASE F/U IN 3-5 DAYS) The documentation as recorded by the Brigitte hoang Edward accurately reflects the service I personally performed and the decisions made by , Andrez Chavez MD.
== END 2017-07-05 18:13 | disposition home or self-care (01) ==
LOC: ED 12:38
DX: R53.1 Weakness (principal); E87.1 Hypo-osmolality and hyponatremia; F03.90 Unspecified dementia, unspecified severity, without behavioral disturbance, psychotic disturbance, mood disturbance, and anxiety
CPT/HCPCS: 36415; 71046; 74019; 80053; 81003; 81015; 83605; 83690; 84484; 85025; 87502; 93005; 96360; 96374; 99283; J2405

== ENCOUNTER 2017-10-14 14:10 | Emergency (ER) | payer MEDICARE, BC ==
[2017-10-14 14:37] VITALS: BP 90/48
--- NOTE | 2017-10-14 15:26 | UC ---
Skin Complaint HPI - HPI Summary HPI Summary: PT HAD UROLOGY APPT TODAY AND WHILE THERE THE NURSE NOTICED A RED SPOT ON HIS RIGHT UPPER THIGH. THINKS IT WAS A TICK BITE. NOT SURE HOW LONG IT HAS BEEN THERE. MAYBE A FEW DAYS. - History of Current Complaint Chief Complaint: UCSkin Time Seen by Provider: 10/14/17 14:35 Stated Complaint: TICK BITE Hx Obtained From: Patient, Family/[employer] - Timing: Constant Onset Severity: Mild Current Severity: Mild Pain Intensity: 0 Pain Scale Used: 0-10 Numeric Location: Discrete - RIGHT ANTERIOR THIGH Aggravating Factor(s): Nothing Alleviating Factor(s): Nothing Related History: Possible Reaction to: Insect - Allergy/Home Medications Allergies/Adverse Reactions: Allergies Allergy/AdvReac Type Severity Reaction Status Date / Time niacin Allergy Flushing Verified 10/14/17 14:38 [From [facility] Extended-Release] POISON TAMMY Allergy Unknown Uncoded 10/14/17 14:38 Reaction Details Review of Systems Constitutional: Negative Skin: Other - TICK BITE Respiratory: Negative Cardiovascular: Negative Gastrointestinal: Negative All Other Systems Reviewed And Are Negative: Yes PMH/Surg Hx/FS Hx/Imm Hx Cardiovascular History: Hypertension - Surgical History Surgical History: Yes Surgery Procedure, Year, and Place: 1993-LEFT HIP REPLACEMENTREVISION LEFT HIP- [id number], [id number] EYE - CATARACT;RIGHT TOTAL KNEE-2008- [id number] EYE CATARACTBypass Surgeries [id number] 2004EVENT MONITOR - DR BYRD-LARGE COLON MASS/POLYP w/ APPE- [id number]--XGBYI KNEE [id number]/2011- EVENT MONITORCARPAL TUNNEL RELEASE-RIGHT. RIGHT KNEE [facility] - Family History Known Family History: Positive: Hypertension - Social History Alcohol Use: Occasionally Alcohol Amount: ONE OUNCE PORT nightly Substance Use Type: None Smoking Status (MU): Never Smoked Tobacco Have You Smoked in the Last Year: No - Immunization History Most Recent Influenza Vaccination: 2012 Most Recent Tetanus Shot: unknown Most Recent Pneumonia Vaccination: 2006 Physical Exam Triage Information Reviewed: Yes Appearance: Well-Appearing, No Pain Distress, Well-Nourished Vital Signs: Initial Vital Signs Temp 97.1 F 10/14/17 14:34 Pulse 65 10/14/17 14:34 Resp 18 10/14/17 14:34 BP 90/48 10/14/17 14:34 Pulse Ox 98 10/14/17 14:34 Vital Signs Reviewed: Yes Eyes: Positive: Conjunctiva Clear ENT: Positive: Hearing grossly normal Neck: Positive: Supple Respiratory: Positive: No respiratory distress, No accessory muscle use Cardiovascular: Positive: Pulses Normal Abdomen Description: Positive: Soft Musculoskeletal: Positive: No Edema Neurological: Positive: Alert Psychological: Positive: Age Appropriate Behavior Skin: Positive: Other - 1CM AREA OF ERYTHEMA SURROUNDING TICK BITE SITE RIGHT ANTERIOR THIGH Course/Dx - Diagnoses Provider Diagnoses: TICK BITE, LYME PEP Discharge - Sign-Out/Discharge Documenting (check all that apply): Discharge/Admit/Transfer - Discharge Plan Condition: Stable Disposition: HOME Prescriptions: Doxycycline Monohydrate [Doxycycline Monohydrate] 2 cap PO ONCE #2 cap Patient Education Materials: Tick Bite (ED) Referrals: Andrez Porter MD [Primary Care Provider] - If Needed Additional Instructions: TICK BITE PROPHYLAXIS You received 200mg of doxycycline for prophylaxis against Lyme disease. The Infectious Disease Society of [place] (IDSA) does not generally recommend antimicrobial prophylaxis for prevention of Lyme disease after a recognized tick bite. However, in areas that are highly endemic for Lyme disease, a single dose of doxycycline may be offered to adult patients (200 mg) who are not and to children older than 8 years of age (4 mg/kg up to a maximum dose of 200 mg) when all of the following circumstances exist: CRITERIA FOR RECEIVING PROPHYLACTIC TREATMENT FOR LYME DISEASE 1) TICK ATTACHED FOR AT LEAST 36 HRS 2) TICK IS AN ADULT OR [place] DEER TICK 3) YOU LIVE IN AN AREA WHERE LYME DISEASE IS PREVALENT (i.e., [place], [place], [place], , [place] , [place], [place], [place], [place], [place], [place], [place], [place], [place]) 4) YOU HAVE NO CONTRAINDICATION TO THE MEDICATION (DOXYCYCLINE) 5) PROPHYLAXIS IS BEGUN WITHIN 72 HRS OF TICK REMOVAL BE VIGILANT OF YOUR SYMPTOMS AND DON'T HESITATE TO GET SEEN AGAIN IF YOU DEVELOP UNEXPLAINED FEVER, HEADACHE, JOINT PAIN, BODY ACHES, RASH OR ANY OTHER CONCERNING SYMPTOMS. Antibiotic treatment following a tick bite is not recommended as a means to prevent anaplasmosis, babesiosis, ehrlichiosis, or [place] spotted fever. There is no evidence this practice is effective, and it may simply delay onset of disease. Instead, persons who experience a tick bite should be alert for symptoms suggestive of tickborne illness and consult a physician if fever, rash, or other symptoms of concern develop. - Billing Disposition and Condition Condition: STABLE Disposition: HOME
== END 2017-10-14 15:17 | disposition home or self-care (01) ==
LOC: UCEAST 14:10
DX: S70.361A Insect bite (nonvenomous), right thigh, initial encounter (principal); W57.XXXA Bitten or stung by nonvenomous insect and other nonvenomous arthropods, initial encounter; Y93.9 Activity, unspecified; Y92.9 Unspecified place or not applicable; I10 Essential (primary) hypertension; Z96.642 Presence of left artificial hip joint; Z95.1 Presence of aortocoronary bypass graft; Z88.8 Allergy status to other drugs, medicaments and biological substances
CPT/HCPCS: 99212; G0463

== ENCOUNTER 2018-04-16 11:47 | Observation (INO) | payer MEDICARE, BC ==
[2018-04-16] MEDS ORDERED: NS 0.9% 1000 ML* 1,000 ML IV ONE (13:05)
--- NOTE | 2018-04-16 13:37 | ED ---
Syncope/Near Syncope - HPI Summary HPI Summary: An 87 year old male brought in by ambulance presents to the ED c/o syncope at 11 :00 04/16/2018. Per he has a Hx of syncope, as he had another syncopal episode in February 2018. He was said to be leaning forward, diaphoretic and clammy. His claims that he was going in and out of consciousness, losing consciousness for about one minute. He denies MARTINEZ, palpitations, SOB, CP before and after syncope. He claims to have blood pressure problems. He has a pacemaker on the left side of his chest. He believes that he is back to his baseline. - History Of Current Complaint Chief Complaint: EDSyncope Time Seen by Provider: 04/16/18 13:03 Hx Obtained From: Patient Onset/Duration: Sudden Onset Timing: Intermittent Episode Lasting - 1 minute Context: Witnessed Associated Signs And Symptoms: Diaphoresis, Other - felt clammy - Allergies/Home Medications Allergies/Adverse Reactions: Allergies Allergy/AdvReac Type Severity Reaction Status Date / Time niacin Allergy Flushing Verified 10/14/17 14:38 [From Nias[facility] Extended-Release] POISON TAMMY Allergy Unknown Uncoded 10/14/17 14:38 Reaction Details Home Medications: Home Medications Atorvastatin* [Lipitor*] 5 mg PO DAILY 04/16/18 [History Confirmed 04/16/18] Marco Antonio/Vit B12/Folic Acid/Vit B6 [Folic Acid-Vit B6-Vit B12 Tab] 1 tab PO DAILY 02/23 [History Confirmed 04/16/18] Finasteride TAB* [Proscar TAB*] 5 mg PO DAILY 04/16/18 [History Confirmed ] Memantine HCl/Donepezil HCl [Namzaric 28-10 mg] 1 cap PO BEDTIME 04/16/18 [ History Confirmed 04/16/18] Metoprolol Succinate XL TAB* [Toprol XL TAB*] 12.5 mg PO QPM 04/16/18 [History Confirmed 04/16/18] Metoprolol Succinate XL TAB* [Toprol XL TAB*] 25 mg PO QAM 04/16/18 [History Confirmed 04/16/18] Ubidecarenone/Vit E/Vit E Mix [Co-Enzyme Q10 100 mg Softgel] 1 cap PO DAILY 02/23 [History Confirmed 04/16/18] PMH/Surg Hx/FS Hx/Imm Hx Endocrine/Hematology History: Denies: Hx Bone Marrow Disease, Hx Diabetes, Hx Sickle Cell Disease, Hx Thyroid Disease Cardiovascular History: Reports: Hx Angina, Hx Auto Implanted Cardiovert Defib, Hx Coronary Artery Disease, Hx Hypercholesterolemia, Hx Hypertension - ON MEDICATION FOR, Hx Myocardial Infarction, Hx Pacemaker/ICD - MEDTRONIC, Hx Syncope, Hx Valvular Heart Disease - UNSURE IF VALVE PROBLEMS, Other Cardiovascular Problems/Disorders - HX OF SYNCOPE- SEEN IN ER 06/2016/ HX OF AFIB Respiratory History: Denies: Hx Asthma, Hx Chronic Obstructive Pulmonary Disease (COPD) GI History: Reports: Hx Gastroesophageal Reflux Disease - HX OF, Other GI Disorders - POLYP REMOVED Denies: Hx Ulcer History: Reports: Hx Renal Disease - CHRONIC RENAL INSUFFICIENCY, Other Problems/Disorders - BPH,/CHRONIC RENAL INSUFFICIENCYPER DR. SANDHU H&P Musculoskeletal History: Reports: Hx Arthritis - JOINT REPLACEMENT, Hx Tendonitis - HX OF, Other Musculoskeletal History - MUSCLE PROBLEMS IN LOWER BACK 05/2012- NO PROBLEM NOW Sensory History: Reports: Hx Cataracts - JOSE, Hx Contacts or Glasses - READING, Hx Hearing Aid - BILATERAL Opthamlomology History: Reports: Hx Cataracts - JOSE, Hx Contacts or Glasses - READING Neurological History: Reports: Hx Migraine - HX OF- PATIENT STATES NOT RECENTLY , Hx Transient Ischemic Attacks (TIA) Psychiatric History: Denies: Hx Panic Disorder - Surgical History Surgery Procedure, Year, and Place: 1993-LEFT HIP REPLACEMENTREVISION LEFT HIP- [id number], [id number] - CATARACT;RIGHT TOTAL KNEE-2008- [id number] E[facility] CATARACTBypass Surgeries [id number] 2004EVENT MONITOR - DR BYRD-LARGE COLON MASS/POLYP w/ APPE- [id number]--SIZPE KNEE [id number]/2011- EVENT MONITORCARPAL TUNNEL RELEASE-RIGHT. RIGHT KNEE IN [facility] Hx Anesthesia Reactions: No Infectious Disease History: No Infectious Disease History: Reports: Hx Shingles Denies: Hx Hepatitis, Hx Human Immunodeficiency Virus (HIV), Hx of Known/ Suspected MRSA, Hx Tuberculosis, Hx Known/Suspected VRE, Hx Known/Suspected VRSA , History Other Infectious Disease, Traveled Outside the [place] in Last 30 Days - Family History Known Family History: Positive: Hypertension - Social History Alcohol Use: Occasionally Alcohol Amount: ONE [place] nightly Substance Use Type: Reports: None Hx Tobacco Use: No Smoking Status (MU): Never Smoked Tobacco Have You Smoked in the Last Year: No Review of Systems Negative: Palpitations, Chest Pain Negative: Shortness Of Breath Positive: Syncope. Negative: Headache All Other Systems Reviewed And Are Negative: Yes Physical Exam - Summary Physical Exam Summary: VITAL SIGNS: Reviewed. GENERAL: Patient is a well-developed and nourished MALE who is lying comfortable in the stretcher.Patient is not in any acute respiratory distress. HEAD AND FACE: No signs of trauma. No ecchymosis, hematomas or skull depressions. No sinus tenderness. EYES: PERRLA, EOMI x 2, No injected conjunctiva, no nystagmus. No photophobia. EARS: Hearing grossly intact. Ear canals and tympanic membranes are within normal limits. MOUTH: Oropharynx within normal limits. NECK: Supple, trachea is midline, no adenopathy, no JVD, no carotid bruit, no c- spine tenderness, neck with full ROM. No meningeal signs, no Kernig's or brudzinskis signs. CHEST: Symmetric, no tenderness at palpation LUNGS: Clear to auscultation bilaterally. No wheezing or crackles. CVS: Regular rate and rhythm, S1 and S2 present, no murmurs or gallops appreciated. ABDOMEN: Soft, non-tender. No signs of distention. No rebound no guarding, and no masses palpated. Bowel sounds are normal. EXTREMITIES: FROM in all major joints, no edema, no cyanosis or clubbing. NEURO: Alert and oriented x 3. No acute neurological deficits. Speech is normal and follows commands. SKIN: Dry and warm GCS: 15 Triage Information Reviewed: Yes Vital Signs On Initial Exam: Initial Vitals Temp Pulse Resp BP Pulse Ox 98 F 68 16 114/67 94 04/16/18 11:47 04/16/18 11:47 04/16/18 11:47 04/16/18 11:47 04/16/18 11:47 Vital Signs Reviewed: Yes Diagnostics - Vital Signs Vital Signs Temp Pulse Resp BP Pulse Ox 04/16/18 12:39 62 22 177/88 96 04/16/18 11:47 98 F 68 16 114/67 94 - Laboratory Result Diagrams: 04/17/18 05:24 04/17/18 05:24 Lab Statement: Any lab studies that have been ordered have been reviewed, and results considered in the medical decision making process. - Radiology CXR Radiology Interpretation Completed By: Radiologist - No active cardiopulmonary disease. This report has been reviewed by the ED physician. Lung Scan-VQ NM Radiology Interpretation Completed By: Radiologist - Low probability for pulmonary embolus. Small bilateral matched defects corresponding to chest x- ray findings as above. This report has been reviewed by the ED physician. - CT Brain CT Interpretation Completed By: Radiologist - Atrophy with chronic ischemic change. Old infarct right frontal lobe unchanged from prior exam. ED physician has reviewed this report. - Ultrasound No standard instances Ultrasound Interpretation Completed By: Radiologist - Carotid doppler study: 1. Mild bilateral common carotid and internal carotid atherosclerotic calcifications. 2. Less than 50% ICA stenosis bilaterally. This report has been reviewed by the ED physician. - EKG 12:00 Cardiac Rate: Other Rate - Atrial paced: 64 bpm EKG Rhythm: Sinus Rhythm Summary of EKG Findings: no ST elevations, similar to EKG done 07/05/2017. Course/Dx Assessment/Plan: An 87 year old male brought in by ambulance presents to the ED c/o syncope at 11:00 04/16/2018. Per he has a Hx of syncope, as he had another syncopal episode in February 2018. He was said to be leaning forward, diaphoretic and clammy. His claims that he was going in and out of consciousness, losing consciousness for about one minute. He denies MARTINEZ, palpitations, SOB, CP before and after syncope. He claims to have blood pressure problems. He has a pacemaker on the left side of his chest. He believes that he is back to his baseline. Blood work without any significant abnormality except for slight anemia, creatinine 1.57, glucose 110, BNP of 737. Chest x-ray impression: No active cardio pulmonary disease. Head CT impression: Atrophy with chronic ischemic changes. Also infarct in the right frontal lobe unchanged from prior exam. In the ED course, the patient has remained stable. Initially the patient became hypotensive and now he is slightly hypertensive. I discussed my physical exam and findings with Dr. Zacarias who accepted the patient for admission. The patient is hemodynamically stable alert and oriented 3. - Diagnoses Differential Diagnosis/HQI/PQRI: Positive: Cerebral Vascular Accident, Dysrhythmia, Hypoglycemia, Metabolic Reaction, Myocardial Infarction, Seizure, Transient Ischemic Attack, Vasovagal Episode Provider Diagnoses: Syncope - Physician Notifications Discussed Care of Patient With: Cynthia Zacarias Time Discussed With Above Provider: 16:10 Instructed by Provider To: Admit As Inpatient Discharge - Sign-Out/Discharge Documenting (check all that apply): Patient Departure - Admit - Discharge Plan Condition: Fair Disposition: ADMITTED TO [facility] - Billing Disposition and Condition Condition: FAIR Disposition: Admitted to [facility] - Attestation Statements Document Initiated by Scribe: Yes Documenting Scribe: Karthikeyan Pina Provider For Whom Scribe is Documenting (Include Credential): Andrez Chavez MD Scribe Attestation: IKarthikeyan scribed for Andrez Chavez MD on 04/17/18 at 0834. Scribe Documentation Reviewed: Yes Provider Attestation: The documentation as recorded by the Karthikeyan hoang accurately reflects the service I personally performed and the decisions made by me, Andrez Chavez MD Attestations User Type: Provider with Scribe Provider Attestation: The documentation recorded by the scribe accurately reflects the service I personally performed and the decisions made by me.
[2018-04-16 13:52] LABS: ABS Basophils 0.1 10^3/ul (0-0.2); ABS Eosinophils 0.1 10^3/ul (0-0.6); ABS Lymphocytes 0.8 10^3/ul (1.0-4.8); ABS Monocytes 0.3 10^3/ul (0-0.8); ABS Neutrophils 5.2 10^3/ul (1.5-7.7); ABS Nucleated RBC 0 10^3/ul; Eosinophil % 1.8 % (0-6); Hematocrit 40 % (42-52); Hemoglobin 13.3 g/dl (14.0-18.0); INR 0.92 (0.77-1.02); Lymphocyte % 12.1 % (25-47); Mean Corpuscular HGB Conc 34 g/dl (31-36); Mean Corpuscular Hemoglobin 32 pg (27-31); Mean Corpuscular Volume 96 fL (80-94); Mean Platelet Volume 8.2 fL (7.4-10.4); Nucleated Red Blood Cells % 0.1; Platelet Count 146 10^3/ul (150-450); Red Blood Count 4.14 10^6/ul (4.00-5.40); Red Cell Distribution Width 13 % (10.5-15); White Blood Count 6.5 10^3/ul (3.5-10.8)
[2018-04-16 14:02] LABS: EGFR Non-African American 42.2 (>60)
[2018-04-16] MEDS ORDERED: NS 0.9% 500 ML* 500 ML IV ONE (15:59)
[2018-04-16] MEDS ORDERED: hydrALAZINE IV* 20 MG/ML VIAL IV SLOW PU PRN (16:31)
[2018-04-16] MEDS ORDERED: Enoxaparin(*) 30 MG/0.3 ML SYR SUBCUT SCH (17:00)
[2018-04-16] MEDS ORDERED: Metoprolol Succinate XL TAB* 25 MG PO SCH ×2 (18:00)
[2018-04-16] MEDS ORDERED: Tamsulosin CAP* 0.4 MG PO SCH (18:00)
[2018-04-16] MEDS ORDERED: Aspirin EC TAB* 81 MG TAB.EC PO SCH (18:00)
[2018-04-16] MEDS ORDERED: Donepezil TAB* 5 MG PO SCH (21:00)
[2018-04-16] MEDS ORDERED: Memantine XR CAP* 28 MG CAP.XR PO SCH (21:00)
--- NOTE | 2018-04-16 22:28 | HP ---
ADMITTING HISTORY AND PHYSICAL: DATE OF ADMISSION: 04/16/18 CHIEF COMPLAINT: Syncope. HISTORY OF PRESENT ILLNESS: The patient is an 87-year-old gentleman with history of CAD, hypertension, CVA, status post CABG in 2006, who was in his usual state of health until a few hours prior to admission, where the states that while shopping at [employer] and the patient was holding the shopping cart, the patient suddenly slumped forward and appeared unconscious for a few seconds and woke up and called for a help and they sat the patient down and while sitting, the patient syncopized 2 more times again for an uncounted number of seconds before regaining consciousness without any observed postictal confusion. The patient himself also denies any prodromal symptoms before the loss of consciousness. The further mentions that back in 02/28/18, he was brought to [place] ER for a similar symptom, but he was not admitted where they checked basic laboratories as well as urinalysis and a chest x-ray and was sent home 3 hours later. 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 MEDICATIONS: Home medications on file are as follows: 1. Aspirin. 2. Cephalexin. 3. Atorvastatin. 4. Vitamin B complex. 5. Multivitamin supplements. 6. Finasteride. 7. Ubidecarenone or coenzyme Q. 8. Isosorbide mononitrate. 9. Tamsulosin. 10. Metoprolol succinate. 11. Memantine. ALLERGIES: NIACIN. FAMILY HISTORY: Denies any family history of heart disease, stroke, or skin cancer. SOCIAL HISTORY: He is and retired and does not smoke. REVIEW OF SYSTEMS: Patient denies any prodromal or perisyncopal symptoms such as chest pain, shortness of breath, or headache. Currently, denies any headaches, dizziness, fevers, chills, nausea, vomiting, chest pain, shortness of breath, increased cough and/or sputum production, abdominal pain, diarrhea, constipation, pain and/or increased frequency in urination, myalgias, arthralgias, throat pain, or new skin lesions. The rest of the 14-point review of systems is otherwise unremarkable except for the chief complaint of syncope. PHYSICAL EXAMINATION Shows the most recent vital signs of records with blood pressure of 180/72, from previous of 190/80, 177/87; heart rate of 61 beats per minute; respiratory rate of 12; saturating at 99% on room air. GENERAL APPEARANCE: The patient is awake, oriented to place only, not to time and person, not in acute distress. HEENT: Normocephalic, atraumatic. PERRLA. Extraocular muscles intact. Negative for icterus. Moist oral mucosa. Negative throat erythema. NECK: Soft, supple with no cervical lymphadenopathy. No JVD. CHEST: Clear to auscultation bilaterally. Good air entry. No wheezes, rales, or rhonchi. HEART: S1, S2 within normal limits. Regular rate and rhythm. No murmurs, rubs , or gallops. ABDOMEN: Soft, nondistended, nontender. Normoactive bowel sounds x4 quadrants. EXTREMITIES: No cyanosis, clubbing, or edema. PSYCHIATRIC: No active psychosis, depression, suicidal or homicidal ideation. SKIN: Warm to touch. ASSESSMENT AND PLAN: The patient is an 87-year-old gentleman with a history of coronary artery disease, cerebral vascular accident following CABG back in 2006 and chronic renal insufficiency being admitted for observation due to syncope. 1. Syncope. I have spoken with Dr. Collins regarding patient being followed by Dr. Nails and has had recent history of syncopal episode, but without any syncopal workup given he was discharged from the ED given his lack of prodromal symptoms nor confusion after he awoke from losing consciousness, which sounds to me like an arrhythmia. He does have a pacemaker, which is currently being interrogated and in the meantime while awaiting, we will admit patient for observation. Place him on telemetry as we await for a repeat 2D echo, the last 2D echo that I saw in [facility] was back in 2012. We will also obtain orthostatic vital signs to rule out other causes of syncope. I have already sent a D-dimer , which was found to be elevated and given his chronic renal insufficiency, I have ordered a stat V/Q scan to be done. I will hold off on any bilateral lower extremity Dopplers given patient does not have any swollen lower extremity and does not complain of any chest pain or shortness of breath at this time. We will also check for serum Prolactin to evaluate for possible seizures, although this is unlikely given lack of confusion when he awoke. I am still awaiting on the results of the urinalysis. Thyroid problems have been ruled out as component of syncope given TSH is normal at 3.73. We will further await any Cardiology input in a.m.. We will also check for bilateral carotid Dopplers to rule out for other comorbidities. 2. Hypertension, uncontrolled. had shown me a record of patient's blood pressure being well controlled in the morning in the 110, 120s to being uncontrolled at night in the 180s, sometimes 190s. mentions a history that his medication was titrated just about 2 days in regards to his Toprol by first having the a.m. dose of Toprol and then subsequently discounting it and maintaining him at 25 q.h.s. of Toprol. We will continue with 25 mg p.o. q.h.s. of Toprol and we will place him on p.r.n. hydralazine given his widely fluctuating blood pressure. 3. Coronary artery disease. Continue aspirin, atorvastatin, and metoprolol. 4. What appears to be dementia. Continue memantine. 5. Benign prostatic hypertrophy. Continue tamsulosin. 6. DVT prophylaxis. We will place patient on low-dose Lovenox. 7. Disposition, for PT eval. ADDENDUM: D/W Dr. Galvez who reviewed [facility] notes and documentations and mentions that Dr. Nails is aware of his previous syncopal episodes and just had a recent stress and 2Decho. Will D/C 2D echo order. Perform orthostatic VS as ordered. 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 Will await official input. [id number]/[facility] #: [id number] [place]
--- NOTE | 2018-04-16 22:47 | CONS ---
CC: Dr. Vivek Nails CARDIOLOGY CONSULTATION: DATE OF CONSULT: 04/16/18 REFERRING PHYSICIAN: Dr. Vincent Lynch. REASON FOR CARDIOLOGY CONSULTATION: Recurrent syncope. HISTORY OF PRESENT ILLNESS: I was kindly asked to see this patient for cardiology consultation regarding recurrent syncope. The patient's memory is quite impaired, but his was able to share with me that today they were at [facility] [employer] and the patient apparently after having walked around and then becoming involved in a conversation while standing for sometime, began to feel lightheaded. They did get him to a seat at [facility], but he had episodes of "going in and out." It is not clear if he had true syncope as he never fell to the ground. He did not require CPR and the entire episode lasted for 5 minutes. The patient's states that this is not uncommon to the patient for the past few years; but usually when it happens, they are able to have the patient lie down and his symptoms resolve. The patient's also states that she is concerned if the patient was dehydrated today as they were in [place] for him to have a hearing aid appointment and so he was not able to hydrate as usual which he apparently resists her effort to help him hydrate. The patient denies chest pain, shortness of breath, and states he feels well at this time. PAST MEDICAL HISTORY: CAD with CABG 01/28/07 [facility]. Last cath 03/18/10 3V CAD with LAD well supplied by CARDONA and SANDHYA, LCx well supplied by radial graft off CARDONA and mild-moderate diffuse RCA CAD. The patient follows with my partner, Dr. Nails. He did have a cardiac chemical nuclear stress test completed on , which showed fixed defect to the inferior wall, which they felt may reflect previous infarct; however, inferior wall motion abnormality was not noted, so would consider artifact. 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 He did have an echocardiogram today which was stable without significant gradient with normal LV function ( please see also that report). He also has a history reportedly of coronary artery disease. He has a history of Medtronic dual chamber pacemaker placement 06/23/13 which is normally functioning on pacer interrogation 03/26/18 . 24 hour BP monitor 03/23/18 showed average BP 158/84. He also has a history of BPH , hyperlipidemia and significant dementia. MEDICATIONS: EHR list reviewed. ALLERGIES TO MEDICATIONS: Listed as NIACIN. FAMILY HISTORY: Limited due to the patient's significant memory deficit. SOCIAL HISTORY: The patient and his are for 50+ years. 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 Limited due to the patient's significant memory deficit, which per the patient's , notes the patient has significant memory loss. REVIEW OF SYSTEMS: Limited due to the patient's significant memory deficit other than as noted above. PHYSICAL EXAM: Height 5 feet 7 inches, weight 143 pounds. Blood pressure is 195/97 sitting and 164/69 standing, temperature 98 degrees, pulse 60, O2 saturation 97%. On general exam, he is a pleasant elderly gentleman, in no acute distress. Lying flat comfortably. HEENT shows the cranium is normocephalic and atraumatic. He has moist mucosal membranes. Neck veins are not distended. There are no carotid bruits. Visible skin warm and perfused. Affect appropriate. He does have evidence of significant memory loss and is unable to recall events from earlier today. Again, per the patient's , this is longstanding. No significant kyphoscoliosis on recumbent back exam. Lungs are clear to auscultation anteriorly. No wheezes, no rales. Cardiac Exam : S1, S2. Regular rate. No significant murmurs, rubs or gallops. PMI is nondisplaced. Abdomen is soft and nondistended, appears benign. Pulses appear grossly intact. . DIAGNOSTIC STUDIES/LAB DATA: Echocardiogram done earlier today showed normal left ventricular ejection fraction with mild to moderate mitral regurgitation and mild pulmonary hypertension. Please see also that report for further details. A 12-lead EKG completed 04/16/18 shows A-paced rhythm. IMPRESSION: Mr. Lundberg is a pleasant 87-year-old gentleman with long history of neurocardiogenic syncope with orthostatic features culminating in episodes of syncope at least since 08/31/11 by EHR review. He has normally functioning pacemaker when checked recently in our office with stable benign echocardiogram , although it is reported that he has some dynamic outflow obstruction in the past and thus would be quite volume dependent It appears that he was dehydrated today in light of his labile hypertension and his vital signs do demonstrate significant orthostatic relative hypotension. I have discussed this in detail with the patient and his and making the following recommendations. RECOMMENDATIONS: Tolerate episodic hypertension and so if possible, we will try to further reduce his antihypertensive regimen as possible (as Dr. Nails has been titrating as well). I think for now it is reasonable to decrease his Toprol XL to 12.5 mg p.o. q.p.m. only as it appears on review of the patient's blood pressure measurements which his takes twice a day that he seems to be hypertensive at night and again would tolerate episodic hypertension as no values meet urgent hypertensive levels. In the future, could consider to discontinue his Flomax as clearly that will contribute to orthostatic symptomatic hypotension with decreased vasomotor responsiveness but concern would be for the patient developing subsequent urinary retention. Agree with aggressive po hydration as has been recommended to the patient in the past including as per Dr. Nails's consultation with the patient on and the patient does have normal LV function. The patient's feels that he was dehydrated today. We will hold on Florinef or midodrine at this time, but it may be reasonable for the patient to eat salty foods and trial compression stockings. After discharge, the patient may continue to follow up with his primary psychological operations officer, Dr. Nails. The above has been discussed in detail with the patient and his . They appear to be in agreement with these recommendations. I have also discussed the case with Dr. Lynch. Dear Dr. Vincent Lynch, many thanks for asking me to participate in the cardiovascular consultative care of Ms. Lundberg. Please do not hesitate to contact me if you have any questions or concerns regarding the patient's cardiovascular consultative care. [id number]/[facility] #: [id number] MTDD
[2018-04-17 05:37] LABS: Hematocrit 35 % (42-52); Hemoglobin 12.2 g/dl (14.0-18.0); Mean Corpuscular HGB Conc 34 g/dl (31-36); Mean Corpuscular Hemoglobin 32 pg (27-31); Mean Corpuscular Volume 93 fL (80-94); Mean Platelet Volume 7.9 fL (7.4-10.4); Platelet Count 151 10^3/ul (150-450); Red Blood Count 3.81 10^6/ul (4.00-5.40); Red Cell Distribution Width 14 % (10.5-15); White Blood Count 5.4 10^3/ul (3.5-10.8)
[2018-04-17 06:03] LABS: EGFR Non-African American 40.7 (>60)
[2018-04-17] MEDS ORDERED: Finasteride TAB* 5 MG PO SCH (09:00)
[2018-04-17] MEDS ORDERED: Isosorbide Mononitrate ER TAB* 30 MG PO SCH (09:00)
[2018-04-17] MEDS ORDERED: Multivitamins/Minerals TAB PO SCH (09:00)
[2018-04-17] MEDS ORDERED: Atorvastatin* 10 MG TAB PO SCH (09:00)
[2018-04-17] MEDS ORDERED: Sodium Polystyrene ORAL.SOL* 15 GM/60 ML BTL PO ONE (10:50)
[2018-04-17 11:47] VITALS: BP 103/46
[2018-04-17] MEDS ORDERED: Metoprolol Succinate XL TAB* 25 MG PO SCH (18:00)
--- NOTE | 2018-04-18 02:48 | DS ---
CC: Dr. Galvez; Dr. Nails; Dr. Andrez Chavez; Dr. Andrez Porter DISCHARGE SUMMARY: DATE OF ADMISSION: DATE OF DISCHARGE: 04/17/18 DISCHARGE DIAGNOSES: 1. Neurocardiogenic syncope with orthostatic features. 2. Hypertension, uncontrolled with supine hypertension and orthostasis on standing. 3. History of coronary artery disease. HISTORY OF PRESENT ILLNESS/HOSPITAL COURSE: The patient is an 87-year-old gentleman with history of CAD, hypertension, and CVA, status post CABG back in 2006, who mentions that he was in his usual state of health until a few hours prior to admission. On further enquiry, however, and on my conversation with Dr. Galvez, who checked his [facility] history as an outpatient and documentation suggested that the patient has been having some syncopal episode since 2011 and has been known to Dr. Nails. He mentions that 2 days prior to admission, Dr. Nails's office has adjusted his metoprolol XL to 12.5 q.h.s. without any in the morning and hence we will continue with this plan. The patient was found to be orthostatic as previously documented and case was reviewed with Dr. Galvez, who also reviewed and read his current 2D echo, mentions that the echocardiogram was found to be normal with an EF of 55% to 60% . He also mentioned that he has had a recent stress test done, which suggests an inferior infarct that is possibly an artifact; however, with no ischemic changes. He suggested that the patient continue the change of Toprol dose that he had been prescribed few days prior to admission and to consider discontinuing Flomax as an outpatient and will defer with PCP. At this point, he was encouraged to increase fluid p.o. intake and he has been advised to follow up with his PCP within 3 days post discharge and to follow up with Dr. Nails in 1 week post discharge. He was advised to drink water during meals and when he is thirsty or when his mouth is dry. He was advised to wear compressive stockings at least 10 hours upon waking up in the morning and he had been given a paper prescription for this. He had been advised to rise slowly from a supine position to a sitting position and sit for at least 2 minutes prior to ambulating and/or standing up and while sitting, he was advised to contract his calf muscles before attempting to rise. He was advised that if his symptoms resume or develop new ones or feel unwell for any reason, to call his PCP and if his PCP cannot entertain him due to scheduling issues alone, to call [facility] if his issue is considered nonemergent. He was advised to call my office regarding any questions, concerns, or further clarifications regarding his discharge plans and/or prescriptions and to take his medications as prescribed. On review of systems, the patient denied any recent headache, dizziness, fevers , chills, nausea, vomiting, chest pain, shortness of breath, increased cough and /or sputum production, abdominal pain, diarrhea, constipation, pain and/or increased frequency in urination, myalgias, arthralgias, throat pain or new skin lesions. The rest of the 14-point review of systems is otherwise unremarkable. PHYSICAL EXAMINATION: Shows the most recent vital signs of records with blood pressure of 117/54, 97.8 degrees Fahrenheit, 62 beats per minute of heart rate, 20 per minute of respiratory rate, saturating at 98% on room air. General appearance: The patient is awake, not in acute distress. HEENT: Normocephalic , atraumatic. PERRLA. Extraocular muscles intact. Negative for icterus. Moist oral mucosa. Negative throat erythema. Neck is soft, supple with no cervical lymphadenopathy. No JVD. Heart: S1, S2 within normal limits. Regular rate and rhythm. No murmurs, rubs, or gallops. Chest: Clear to auscultation bilaterally. Good air entry. No wheezes, rales, or rhonchi. Abdomen is soft, nondistended, nontender. Normoactive bowel sounds x4 quadrants. Extremities: No cyanosis, clubbing, or edema. Psychiatric: No active psychosis, depression, suicidal, or homicidal ideation. Skin: Warm to touch. DISCHARGE MEDICATIONS: 1. Aspirin 81 mg p.o. q.p.m. 2. Atorvastatin 5 mg p.o. daily. 3. Benazepril 10 mg p.o. q.h.s. 4. Finasteride 5 mg p.o. daily. 5. Isosorbide mononitrate 30 mg p.o. q.a.m. 6. Memantine/donepezil 1 cap p.o. q.h.s. 7. Metoprolol succinate XL 12.5 mg p.o. q.p.m. 8. Multivitamins 1 tab p.o. q.a.m. 9. Tamsulosin 0.4 mg p.o. q.p.m. 10. Vitamin supplementation tablet, 1 tab p.o. daily. 11. Coenzyme Q10 one cap p.o. daily. 12. Vitamin B complex 150 mg p.o. daily. TIME SPENT: The total time spent evaluating the patient, reviewing pertinent data and appropriate documentation is 40 minutes. [id number] #: [id number] MTDD
== END 2018-04-17 12:30 | disposition home or self-care (01) ==
LOC: ED 11:47 → MEDTELE 15:52
PROVIDERS: ADMIT Student in an Organized Health Care Education/Training Program; ATTEND Student in an Organized Health Care Education/Training Program
DX: I95.1 Orthostatic hypotension (principal); I10 Essential (primary) hypertension; I25.10 Atherosclerotic heart disease of native coronary artery without angina pectoris; Z86.73 Personal history of transient ischemic attack (TIA), and cerebral infarction without residual deficits; Z95.5 Presence of coronary angioplasty implant and graft; Z79.82 Long term (current) use of aspirin
CPT/HCPCS: 36415; 70450; 71046; 78582; 80053; 80320; 82140; 82550; 83605; 83735; 83880; 84100; 84146; 84443; 84484; 85025; 85027; 85379; 85610; 85730; 93005; 93306; 93880; 96372; 96374; 96375; 99283; A9270-GY; A9540; A9558; G0378; G0480; G8978-GP-CK; G8979-GP-CK; G8980-GP-CK; J1650

== ENCOUNTER 2018-06-13 11:18 | Emergency (ER) | payer MEDICARE, BC ==
[2018-06-13] MEDS ORDERED: NS 0.9% 1000 ML* 1,000 ML IV ONE (11:33)
--- NOTE | 2018-06-13 11:33 | ED ---
Syncope/Near Syncope - HPI Summary HPI Summary: Patient is a 87 y/o M presenting to ED via ambulance after having a 1 minute witnessed syncopal episode at [employer] today. Per EMS, chica has had multiple syncopal episodes but patient cannot recall. - Allergies/Home Medications Allergies/Adverse Reactions: Allergies Allergy/AdvReac Type Severity Reaction Status Date / Time niacin Allergy Flushing Verified 10/14/17 14:38 [From [employer] Extended-Release] POISON TAMMY Allergy Unknown Uncoded 10/14/17 14:38 Reaction Details PMH/Surg Hx/FS Hx/Imm Hx Endocrine/Hematology History: Denies: Hx Bone Marrow Disease, Hx Diabetes, Hx Sickle Cell Disease, Hx Thyroid Disease Cardiovascular History: Reports: Hx Angina, Hx Auto Implanted Cardiovert Defib, Hx Coronary Artery Disease, Hx Hypercholesterolemia, Hx Hypertension - ON MEDICATION FOR, Hx Myocardial Infarction, Hx Pacemaker/ICD - MEDTRONIC, Hx Syncope, Hx Valvular Heart Disease - UNSURE IF VALVE PROBLEMS, Other Cardiovascular Problems/Disorders - HX OF SYNCOPE- SEEN IN ER 06/2016/ HX OF AFIB Respiratory History: Denies: Hx Asthma, Hx Chronic Obstructive Pulmonary Disease (COPD) GI History: Reports: Hx Gastroesophageal Reflux Disease - HX OF, Other GI Disorders - POLYP REMOVED Denies: Hx Ulcer History: Reports: Hx Renal Disease - CHRONIC RENAL INSUFFICIENCY, Other Problems/Disorders - BPH,/CHRONIC RENAL INSUFFICIENCYPER DR. SANDHU H&P Musculoskeletal History: Reports: Hx Arthritis - JOINT REPLACEMENT, Hx Tendonitis - HX OF, Other Musculoskeletal History - MUSCLE PROBLEMS IN LOWER BACK 05/2012- NO PROBLEM NOW Sensory History: Reports: Hx Cataracts - JOSE, Hx Contacts or Glasses - READING, Hx Hearing Aid - BILATERAL Opthamlomology History: Reports: Hx Cataracts - JOSE, Hx Contacts or Glasses - READING Neurological History: Reports: Hx Migraine - HX OF- PATIENT STATES NOT RECENTLY , Hx Transient Ischemic Attacks (TIA) Psychiatric History: Denies: Hx Panic Disorder - Surgical History Surgery Procedure, Year, and Place: 1993-LEFT HIP REPLACEMENTREVISION LEFT HIP- [id number], [id number] - CATARACT;RIGHT TOTAL KNEE-2008- [id number] EYE CATARACTBypass Surgeries [id number] 2005EVENT MONITOR - DR BYRD-LARGE COLON MASS/POLYP w/ APPE- [id number] KNEE [id number]/2011- EVENT MONITORCARPAL TUNNEL RELEASE-RIGHT. RIGHT KNEE IN [facility] Hx Anesthesia Reactions: No Infectious Disease History: No Infectious Disease History: Reports: Hx Shingles Denies: Hx Hepatitis, Hx Human Immunodeficiency Virus (HIV), Hx of Known/ Suspected MRSA, Hx Tuberculosis, Hx Known/Suspected VRE, Hx Known/Suspected VRSA , History Other Infectious Disease, Traveled Outside the [place] in Last 30 Days - Family History Known Family History: Positive: Hypertension - Social History Alcohol Use: Occasionally Alcohol Amount: ONE OUNCE PORT nightly Substance Use Type: Reports: None Hx Tobacco Use: No Smoking Status (MU): Never Smoked Tobacco Have You Smoked in the Last Year: No Physical Exam Vital Signs On Initial Exam: Initial Vitals Temp Pulse Resp BP Pulse Ox 96.4 F 71 18 182/98 99 06/13/18 11:19 06/13/18 11:19 06/13/18 11:19 06/13/18 11:19 06/13/18 11:19 Diagnostics - Vital Signs Vital Signs Temp Pulse Resp BP Pulse Ox 06/13/18 11:19 96.4 F 71 18 182/98 99 - Laboratory Lab Statement: Any lab studies that have been ordered have been reviewed, and results considered in the medical decision making process. Discharge - Discharge Plan Referrals: Andrez Porter MD [Primary Care Provider] - - Attestation Statements Document Initiated by Scribe: Yes
--- NOTE | 2018-06-13 11:36 | ED ---
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 The patients was not near him when the incident occurred. Patient reports short term memory loss, chills, and diaphoresis. Patient denies MARTINEZ, blurred vision, CP, or SOB. The patient has had a lot of syncopal episodes recently but he does not remember. - History Of Current Complaint Chief Complaint: EDSyncope Time Seen by Provider: 06/13/18 11:25 Hx Obtained From: Patient Onset/Duration: Sudden Onset Timing: Frequency Of Episodes - 1 Context: Loss Of Consciousness, Other - at religious, unknown if witnessed Activity At Onset: At Rest Alleviating Factor(s): Spontaneous Resolution Associated Signs And Symptoms: Diaphoresis Frequency: Episodes x___ - unknown - Allergies/Home Medications Allergies/Adverse Reactions: Allergies Allergy/AdvReac Type Severity Reaction Status Date / Time niacin Allergy Flushing Verified 10/14/17 14:38 [From [facility] Extended-Release] POISON TAMMY Allergy Unknown Uncoded 10/14/17 14:38 Reaction Details PMH/Surg Hx/FS Hx/Imm Hx Endocrine/Hematology History: Denies: Hx Bone Marrow Disease, Hx Diabetes, Hx Sickle Cell Disease, Hx Thyroid Disease Cardiovascular History: Reports: Hx Angina, Hx Auto Implanted Cardiovert Defib, Hx Coronary Artery Disease, Hx Hypercholesterolemia, Hx Hypertension - ON MEDICATION FOR, Hx Myocardial Infarction, Hx Pacemaker/ICD - MEDTRONIC, Hx Syncope, Hx Valvular Heart Disease - UNSURE IF VALVE PROBLEMS, Other Cardiovascular Problems/Disorders - HX OF SYNCOPE- SEEN IN ER 06/2016/ HX OF AFIB Respiratory History: Denies: Hx Asthma, Hx Chronic Obstructive Pulmonary Disease (COPD) GI History: Reports: Hx Gastroesophageal Reflux Disease - HX OF, Other GI Disorders - POLYP REMOVED Denies: Hx Ulcer History: Reports: Hx Renal Disease - CHRONIC RENAL INSUFFICIENCY, Other Problems/Disorders - BPH,/CHRONIC RENAL INSUFFICIENCYPER DR. SANDHU H&P Musculoskeletal History: Reports: Hx Arthritis - JOINT REPLACEMENT, Hx Tendonitis - HX OF, Other Musculoskeletal History - MUSCLE PROBLEMS IN LOWER BACK 05/2012- NO PROBLEM NOW Sensory History: Reports: Hx Cataracts - JOSE, Hx Contacts or Glasses - READING, Hx Hearing Aid - BILATERAL Opthamlomology History: Reports: Hx Cataracts - JOSE, Hx Contacts or Glasses - READING Neurological History: Reports: Hx Migraine - HX OF- PATIENT STATES NOT RECENTLY , Hx Transient Ischemic Attacks (TIA), Other Neuro Impairments/Disorders - syncope Psychiatric History: Denies: Hx Panic Disorder - Surgical History Surgery Procedure, Year, and Place: 1993-LEFT HIP REPLACEMENTREVISION LEFT HIP- [id number], [id number] EYE - CATARACT;RIGHT TOTAL KNEE-2008- [id number] EYE CATARACTBypass Surgeries [id number] 2005EVENT MONITOR - DR BYRD-LARGE COLON MASS/POLYP w/ APPE- [id number] KNEE [id number]/2011- EVENT MONITORCARPAL TUNNEL RELEASE-RIGHT. RIGHT KNEE IN [facility] Hx Anesthesia Reactions: No Infectious Disease History: No Infectious Disease History: Reports: Hx Shingles Denies: Hx Hepatitis, Hx Human Immunodeficiency Virus (HIV), Hx of Known/ Suspected MRSA, Hx Tuberculosis, Hx Known/Suspected VRE, Hx Known/Suspected VRSA , History Other Infectious Disease, Traveled Outside the [place] in Last 30 Days - Family History Known Family History: Positive: Hypertension - Social History Alcohol Use: Occasionally Alcohol Amount: ONE OUNCE PORT nightly Substance Use Type: Reports: None Hx Tobacco Use: No Smoking Status (MU): Never Smoked Tobacco Have You Smoked in the Last Year: No Review of Systems Positive: Chills, Skin Diaphoresis Negative: Blurred Vision Negative: Chest Pain Negative: Shortness Of Breath Neurological: Other - memory loss Positive: Syncope. Negative: Headache All Other Systems Reviewed And Are Negative: Yes Physical Exam - Summary Physical Exam Summary: VITAL SIGNS: Reviewed. GENERAL: Patient is a well-developed and nourished male who is lying comfortable in the stretcher. Patient is not in any acute respiratory distress. HEAD AND FACE: No signs of trauma. No ecchymosis, hematomas or skull depressions. No sinus tenderness. EYES: PERRLA, EOMI x 2, No injected conjunctiva, no nystagmus. EARS: Hearing grossly intact. Ear canals and tympanic membranes are within normal limits. MOUTH: Oropharynx within normal limits. NECK: Supple, trachea is midline, no adenopathy, no JVD, no carotid bruit, no c- spine tenderness, neck with full ROM. CHEST: Symmetric, no tenderness at palpation LUNGS: Clear to auscultation bilaterally. No wheezing or crackles. CVS: Regular rate and rhythm, S1 and S2 present, no murmurs or gallops appreciated. ABDOMEN: Soft, non-tender. No signs of distention. No rebound no guarding, and no masses palpated. Bowel sounds are normal. EXTREMITIES: FROM in all major joints, no edema, no cyanosis or clubbing. NEURO: Alert and oriented x 3. No acute neurological deficits. Speech is normal and follows commands. SKIN: Dry and warm GCS: 15 Triage Information Reviewed: Yes Vital Signs On Initial Exam: Initial Vitals Temp Pulse Resp BP Pulse Ox 96.4 F 71 18 182/98 99 06/13/18 11:19 06/13/18 11:19 06/13/18 11:19 06/13/18 11:19 06/13/18 11:19 Vital Signs Reviewed: Yes Diagnostics - Vital Signs Vital Signs Temp Pulse Resp BP Pulse Ox 06/13/18 11:19 96.4 F 71 18 182/98 99 - Laboratory Result Diagrams: 06/13/18 10:50 06/13/18 10:50 Lab Statement: Any lab studies that have been ordered have been reviewed, and results considered in the medical decision making process. - Radiology CXR Radiology Interpretation Completed By: Radiologist Summary of Radiographic Findings: No radiographic evidence of acute cardiopulmonary disease. ED physician has reviewed this report. - CT Brain CT Interpretation Completed By: Radiologist Summary of CT Findings: There are no CT apparent acute intracranial abnormalities. 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 The patients was not near him when the incident occurred. Patient reports short term memory loss, chills, and diaphoresis. Patient denies MARTINEZ, blurred vision, CP, or SOB. The patient has had a lot of syncopal episodes recently but he does not remember. Blood work without any significant abnormality except for slight chronic anemia, sodium was 132, and BUN is 25 and creatinine is 1.63 consistent with an acute renal injury. Glucose is 118, and BMP is a 506. Head CT impression: There is no CT apparent acute intracranial abnormalities. 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 In the ED course the patient was given IV fluids and he has been stable. I discussed the case with Dr. Hightower from the hospital services who accepted the patient for admission. However after Dr. Hightower spoke with the patient and the patients they are change her mind and declined admission for observation. After Dr. Chin assessment he believes that the patient can be discharged home with follow-up with cardiology as an outpatient. The patient has a pacemaker defibrillator. Therefore he recommends for the patient to be discharged home with follow-up with cardiology. I agree with assessment and plan with Dr. Hightower. At this point the patient is alert and oriented 3 without any neurological focal deficits. The patient is ambulating out of the emergency department. - Diagnoses Differential Diagnosis/HQI/PQRI: Positive: Dysrhythmia, Hypoglycemia, Hypovolemia, Transient Ischemic Attack, Vasovagal Episode Provider Diagnoses: Syncope Discharge - Sign-Out/Discharge Documenting (check all that apply): Patient Departure - discharge - Discharge Plan Condition: Stable Disposition: HOME Patient Education Materials: Syncope (ED) Referrals: Andrez Porter MD [Primary Care Provider] - 2 Days Additional Instructions: Follow up with your primary care physician in 1-3 days. RETURN TO THE EMERGENCY DEPARTMENT FOR CHANGING OR WORSENING SYMPTOMS. - Billing Disposition and Condition Condition: STABLE Disposition: Home - Attestation Statements Document Initiated by Freedom: Yes Documenting Scribe: Priyank De Anda Provider For Whom Freedom is Documenting (Include Credential): Andrez Chavez MD Scribe Attestation: Priyank Kidd, hamiltonibed for Andrez Chavez MD on 06/13/18 at 1853. Scribe Documentation Reviewed: Yes Provider Attestation: The documentation as recorded by the Priyank hoang accurately reflects the service I personally performed and the decisions made by , Andrez Chavez MD Status of Scribe Document: Viewed
[2018-06-13 11:48] LABS: ABS Basophils 0.1 10^3/ul (0-0.2); ABS Eosinophils 0.1 10^3/ul (0-0.6); ABS Monocytes 0.3 10^3/ul (0-0.8); ABS Neutrophils 4.4 10^3/ul (1.5-7.7); ABS Nucleated RBC 0 10^3/ul; Eosinophil % 2.4 %; Hematocrit 39 % (42-52); Mean Corpuscular HGB Conc 33 g/dl (31-36); Mean Corpuscular Hemoglobin 31 pg (27-31); Mean Corpuscular Volume 93 fL (80-94); Mean Platelet Volume 7.4 fL (7.4-10.4); Nucleated Red Blood Cells % 0; Platelet Count 158 10^3/ul (150-450); Red Blood Count 4.16 10^6/ul (4.00-5.40); Red Cell Distribution Width 14 % (10.5-15); White Blood Count 5.9 10^3/ul (3.5-10.8)
[2018-06-13 12:07] LABS: Albumin 3.8 g/dL (3.2-5.2); Albumin/Globulin Ratio 1.5 (1-3); BUN/Creatinine Ratio 15.3 (8-20); Calcium 9.2 mg/dL (8.6-10.3); EGFR Non-African American 40.4 (>60); Globulin 2.6 g/dL (2-4); Magnesium 2.4 mg/dL (1.9-2.7); Potassium 4.9 mmol/L (3.5-5.0); Total Bilirubin 0.7 mg/dL (0.2-1.0); Total Protein 6.4 g/dL (6.4-8.9)
[2018-06-13 13:00] LABS: TSH (Thyroid Stimulating Horm) 3.87 mcIU/mL (0.34-5.60)
[2018-06-13 17:16] VITALS: BP 188/96
--- NOTE | 2018-06-14 00:07 | CONS ---
CC: Dr. Porter * CONSULTATION REPORT: DATE OF CONSULT: 06/13/18 SERVICE REQUESTING CONSULT: Emergency Room, Dr. Chavez. PRIMARY CARE PHYSICIAN: Dr. Porter. REASON FOR CONSULT: Syncope. HEALTHCARE PROXY: , present during the interview. CODE STATUS: Full. SOURCE OF INFORMATION: History was obtained from interview with the patient and his . RELIABILITY: Fair. HISTORY OF PRESENT ILLNESS AND HOSPITAL COURSE: This is an 87-year-old man with past medical history including CAD, including a CABG in 2006 as well as CVA in 2006 at time of his CABG, recurrent syncope in February and April 2018 and now again in June 2018, orthostatic hypotension, but in his usual state of health, went to [employer] today and was in the pews and had an episode of syncope that was unwitnessed by his while she was in the back preparing the coffee for the voodoo. When she returned, received report from Dr. Sotomayor, who was a member of the [employer] and indicated that he had been cold and clammy and sweating. An episode of emesis prior to EMS [place] [facility] [place] Of note, the patient has been doing well; however, he then had some rhinorrhea over the last week as well as has an indwelling Stevens catheter placed since just before secondary to urinary retention. He has had no fever, chills, night sweats, or diarrhea. The patient's reports that it is very difficult to get him drink water and that she thinks he is chronically dehydrated. Upon discharge in April, the patient was counseled to stay on Stevens as well as wear compression stockings, neither of which he reports doing at this time. The patient does have confusion, some advancing dementia, and has difficulty remembering the events surrounding today's syncope as well around the surrounding efforts that he is taking to mitigate his orthostatic hypotension. In the emergency room, the patient feels well. He has no complaints, denies headaches, nausea, vomiting, lightheadedness, chest pain, shortness of breath, any abdominal pain, any pain whatsoever. Of note, Namzaric , which is combination of Namenda and memantine was recently started on Thursday, 7 days prior to this presentation. It was discontinued because of hypertension , however, restarted because his reports he had significant memory decline shortly after discontinuing the medication. PAST MEDICAL/SURGICAL HISTORY: CAD with history of CABG in 2006, history of CVA at the time of CABG, chronic renal insufficiency, and multiple skin cancers in including melanoma resection. Multiple joint surgeries including left hip replacement, right knee replacement, tonsillectomy, appendectomy, pacer placed in 2014, carpal tunnel repair. Additionally, hyperlipidemia, suspected BPH, recurrent syncope. MEDICATIONS: Home medications include: 1. Metoprolol 25 mg twice daily. 2. Isosorbide 30 mg daily. 3. Finasteride 5 mg daily. 4. Tamsulosin 0.4 mg in the evening. 5. Namzaric 1 tab at bedtime. 6. Atorvastatin 5 mg daily. 7. Aspirin 81 mg daily. ALLERGIES: To NIACIN. FAMILY HISTORY: Denies history of heart disease or CVA. SOCIAL HISTORY: . Denies history of tobacco, alcohol, illicit's. REVIEW OF SYSTEMS: As per HPI, otherwise all other systems negative. PHYSICAL EXAM: Vitals in the emergency room: 182/90. Orthostatic vital signs apparently being taken, heart rate is 71 and respiratory rate is 18, 99% on room air, T-max 96.4. Sitting in bed, interactive, pleasant, no apparent distress. Oropharynx is clear. He has moist mucous membranes. Non-elevated JVP. He has regular rate and rhythm. His lungs are clear to auscultation. His abdomen is soft, nontender, and nondistended. Extremities warm and well perfused. No clubbing, cyanosis, or edema. He is alert and oriented x2, not to the year. He is easily distracted, confused, but no apparent anxiety, agitation, or depression. DIAGNOSTIC STUDIES/LAB DATA: Pertinent labs reported are reviewed. BUN 25, creatinine 1.6. BNP 506. Troponin 0.00. TSH 3.8. Pertinent Imaging: Chest x-ray: Impression: No radiographic evidence of cardiopulmonary disease. EKG: Normal sinus rhythm, normal limit axis, normal airway progression, atrial paced rhythm. ASSESSMENT AND PLAN: This is an 87-year-old man with past medical history of multiple episodes of syncope, suspected in the setting in the orthostasis, currently being managed by Dr. Nails, presented to the hospital with episode of syncope while at [employer] today. Syncope. Unknown, if the patient was standing or sitting at time of loss of consciousness; however, given his history of orthostatic hypotension, highly likely the patient did stand and lost consciousness while at [employer] secondary to frequent standing and sitting in the setting of singing. Unfortunately, the patient's was concerned what was happening. The patient has not been adherent to standing slowly nor staying hydrated nor wearing lower compression stockings. There is no overt other evidence for a reason that the patient has had recurrent syncope at this time. I did discuss an OBV admission with the patient and his , which they are adamantly refusing. Admission would be for further evaluation and monitoring. However, the did indicate that they have not yet received the bill for the April hospital stay. She is greatly concerned about another hospital stay. I indicated that there would be no additional testing that I have in mind for the patient at this time. We will not have the patient sign against medical advice form to leave the hospital at this time; however, we did indicate some of the risks in leaving the hospital including sudden loss of consciousness again and/or other unidentified etiologies contributing to the syncope not identified in the emergency room. She and her are both in agreement with assuming this risk in leaving the hospital, to return if he has any decline or worsening of the symptoms. The patient is hypertensive in the emergency room; however, titrating his medications would be difficult as an outpatient given his orthostasis and recurrent loss of consciousness. We will make no adjustments to his medications at this time. The patient is currently measuring his blood pressures daily at home. There was some attention to discontinuing medications for benign prostatic hyperplasia the last hospital stay given their association with potential syncope and/or orthostasis. Again, attention should be paid towards these medications should the patient maintain a Stevens catheter and is not removed on a followup with Dr. Meyers. Discussed above with Dr. Chavez, who is in agreement with above plan. TIME SPENT: Greater than 60 minutes was spent in this consultation, with greater than half was spent [id number] with the patient and his . [id number]/[facility] #: [id number] [place]
== END 2018-06-13 17:16 | disposition home or self-care (01) ==
LOC: ED 11:18
DX: R55 Syncope and collapse (principal); I25.119 Atherosclerotic heart disease of native coronary artery with unspecified angina pectoris; I10 Essential (primary) hypertension; Z95.1 Presence of aortocoronary bypass graft; Z95.810 Presence of automatic (implantable) cardiac defibrillator; Z96.642 Presence of left artificial hip joint; Z96.651 Presence of right artificial knee joint; Z88.8 Allergy status to other drugs, medicaments and biological substances
CPT/HCPCS: 36415; 70450; 71046; 80053; 83605; 83735; 83880; 84443; 84484; 85025; 93005; 99283

== ENCOUNTER 2019-01-08 19:17 | Emergency (ER) | payer MEDICARE, OTHER, BC ==
[2019-01-08 19:26] VITALS: BP 153/72
[2019-01-08] MEDS ORDERED: Benzoin Compound STICK TOPICAL ONE (19:34)
[2019-01-08] MEDS ORDERED: Tetan/Diph/Pertus SYR(Tdap)* 0.5 ML SYR(BOOSTRIX) use SYR IM ONE (19:49)
--- NOTE | 2019-01-08 19:56 | UC ---
Skin Complaint HPI - HPI Summary HPI Summary: patient fell on a curb at 1800 today franks has a skin tear to left forearm and right 3rd finger---did not hit head no loc full ROM - History of Current Complaint Chief Complaint: UCSkin Time Seen by Provider: 01/08/19 19:21 Stated Complaint: ARM AND FINGER INJURY Hx Obtained From: Patient, Family/Student Life Coordinator Onset/Duration: Sudden Onset, Lasting Hours - 2 Timing: Constant Pain Intensity: 0 Pain Scale Used: 0-10 Numeric Location: Discrete Aggravating Factor(s): Nothing Alleviating Factor(s): Nothing Associated Signs & Symptoms: Positive: Negative - Allergy/Home Medications Allergies/Adverse Reactions: Allergies Allergy/AdvReac Type Severity Reaction Status Date / Time niacin Allergy Flushing Verified 01/08/19 19:26 [From [facility] Extended-Release] POISON TAMMY Allergy Unknown Uncoded 01/08/19 19:26 Reaction Details PMH/Surg Hx/FS Hx/Imm Hx Previously Healthy: No Endocrine History: Dyslipidemia Cardiovascular History: Hypertension - Surgical History Surgical History: Yes Surgery Procedure, Year, and Place: 1993-LEFT HIP REPLACEMENTREVISION LEFT HIP- [id number], [id number] E[facility] - CATARACT;RIGHT TOTAL KNEE-2008- [id number] EYE CATARACTBypass Surgeries [id number] 2005EVENT MONITOR - DR BYRD-LARGE COLON MASS/POLYP w/ APPE- [id number]--ANHRQ KNEE [id number]/2011- EVENT MONITORCARPAL TUNNEL RELEASE-RIGHT. RIGHT KNEE IN COLLEGE - Family History Known Family History: Positive: Hypertension - Social History Occupation: Retired Lives: With Family Alcohol Use: Occasionally Alcohol Amount: ONE OUNCE PORT nightly Substance Use Type: None Smoking Status (MU): Never Smoked Tobacco Have You Smoked in the Last Year: No - Immunization History Most Recent Influenza Vaccination: 2013 Most Recent Tetanus Shot: unknown Most Recent Pneumonia Vaccination: 2007 Review of Systems All Other Systems Reviewed And Are Negative: Yes Constitutional: Positive: Negative Skin: Positive: Other - 15 cm skin tear lft forearm 1 cm skin tear right 3rd finger Eyes: Positive: Negative ENT: Positive: Negative Respiratory: Positive: Negative Cardiovascular: Positive: Negative Gastrointestinal: Positive: Negative Genitourinary: Positive: Negative Motor: Positive: Negative Neurovascular: Positive: Negative Musculoskeletal: Positive: Negative Neurological: Positive: Negative Psychological: Positive: Negative Is Patient Immunocompromised?: No Physical Exam Triage Information Reviewed: Yes Appearance: Well-Appearing, No Pain Distress, Well-Nourished Vital Signs: Initial Vital Signs Temp 97.7 F 01/08/19 19:22 Pulse 66 01/08/19 19:22 Resp 18 01/08/19 19:22 BP 153/72 01/08/19 19:22 Pulse Ox 99 01/08/19 19:22 Vital Signs Reviewed: Yes Eye Exam: Normal Eyes: Positive: Conjunctiva Clear ENT Exam: Normal ENT: Positive: Normal ENT inspection, Hearing grossly normal. Negative: Trismus , Muffled voice, Hoarse voice Dental Exam: Normal Neck exam: Normal Neck: Positive: Supple, Nontender Respiratory Exam: Normal Respiratory: Positive: Chest non-tender, Lungs clear, Normal breath sounds, No respiratory distress, No accessory muscle use Cardiovascular Exam: Normal Cardiovascular: Positive: RRR, Pulses Normal, Brisk Capillary Refill Musculoskeletal Exam: Normal Musculoskeletal: Positive: Strength Intact, ROM Intact, No Edema Neurological Exam: Normal Neurological: Positive: Alert, Muscle Tone Normal Psychological Exam: Normal Skin: Positive: Other - jagged 15 cm skin tear left forearm 1 cm sin tear right 3rd finger Laceration Repair - Laceration Repair 1 Description: Irregular Laceration Size After Repair: Length (cm) - 15, Width (mm) - 10, Depth (mm) - 1 Modified For Repair: No Cleansing Completed Via Routine Prep: Yes Irrigation With Pressure Irrigation Device: Yes Closure Material: SteriStrips 2 Description: Linear Laceration Size After Repair: Length (cm) - 1, Width (mm) - 1, Depth (mm) - 2 Modified For Repair: No Cleansing Completed Via Routine Prep: Yes Irrigation With Pressure Irrigation Device: Yes Closure Material: SteriStrips Re-Evaluation - Re-Evaluation First Eval Change: Improved - wounds well approximated telfa and mihai wrap applied Course/Dx - Course Course Of Treatment: up date tetanus, mild soap and water wash, allow steri strip to fall off on their own follow with pcp in 1 week - Diagnoses Provider Diagnosis: Skin tear of left upper extremity Discharge - Sign-Out/Discharge Documenting (check all that apply): Patient Departure All imaging exams completed and their final reports reviewed: No Studies - Discharge Plan Condition: Stable Disposition: HOME Patient Education Materials: Skin Tear (ED), Diphtheria/Acellular Pertussis/ Tetanus Booster Vaccine (By injection) Referrals: Andrez Porter MD [Primary Care Provider] - 1 Week - Billing Disposition and Condition Condition: STABLE Disposition: Home
== END 2019-01-08 20:25 | disposition home or self-care (01) ==
LOC: UCEAST 19:17
DX: S51.812A Laceration without foreign body of left forearm, initial encounter (principal); S61.213A Laceration without foreign body of left middle finger without damage to nail, initial encounter; W18.30XA Fall on same level, unspecified, initial encounter; Y92.480 Sidewalk as the place of occurrence of the external cause; E78.5 Hyperlipidemia, unspecified; I10 Essential (primary) hypertension
CPT/HCPCS: 90715; 99214; G0463

== ENCOUNTER 2019-03-13 21:03 | Inpatient (IN) | payer MEDICARE, BC ==
--- OUTSIDE RECORDS SUMMARY | 2019-03-13 21:15 | XMS REPORT | Continuity of Care Document ---
:1930 External Reference #:[id number] Author Name Tracy Gordon N.P. (transmitted by agent of provider Betina Razo) Address [address] 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 Onset: 12/14/2006 Low back pain Susan Porter M.D. Onset: 06/11/2011 Syncope and collapse Vivek Nails M.D. Onset: 08/13/2011 Coronary atherosclerosis Vivek Nails M.D. Onset: 08/13/2011 Dysphagia Vivek Nails M.D. Onset: 08/13/2011 Sinus node dysfunction Vivek Nails M.D. Onset: 10/01/2011 Disorder of thyroid gland Susan Porter M.D. Onset: 12/09/2011 Malaise and fatigue Kathleen Saba, N.PRonaldo Onset: 01/08/2012 Amnesia Kathleen Saba N.Blane Onset: 01/08/2012 Palpitations Vivek Nails M.D. Onset: 06/09/2012 Coronary arteriosclerosis Susan Porter M.D. Onset: 01/13/2013 Pure hypercholesterolemia Susan Porter M.D. Onset: 01/13/2013 Acute on chronic diastolic heart failure Vivek Nails M.D. Onset: Atrial fibrillation Mark Mora M.D. Onset: 03/28/2013 Malignant essential hypertension Vivek Nails M.D. Onset: 08/02/2013 Heart murmur Vivek Nails M.D. Onset: 08/02/2013 Cardiac pacemaker in situ SHIKHA Vanegas Onset: 08/23/2013 Mitral valve disorder SHIKHA Vanegas Onset: 08/23/2013 Tricuspid valve disorder, non-rheumatic SHIKHA Vanegas Onset: 08/23/2013 Atherosclerosis of arteries of the Vivek Nails M.D. Onset: 12/06/2013 extremities Atherosclerotic heart disease of [place] Vivek Nails M.D. 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 Onset: 02/05/2016 outflow obstruction Minimal cognitive impairment Susan Porter M.D. Onset: 02/17/2017 Atherosclerotic heart disease of [place] Susan Porter M.D. Onset: 2016 coronary artery with other forms of angina pectoris Autonomic dysreflexia Danny Gonzalez M.D. 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 Onset: 11/26/2018 Social History Type Date Description Comments Sex Unknown Tobacco Use Start: Unknown Never Smoked Cigarettes ETOH Use Occasionally consumes wine Tobacco Use Start: Unknown Patient has never smoked Recreational Drug Use Denies Drug Use Smoking Status Reviewed: 02/15/19 Patient has never smoked Exercise Type/Frequency Exercises sporadically goes to gym once weekly Exercise Type/Frequency Does not exercise Exercise Type/Frequency unable to go to the gym Allergies, Adverse Reactions, Alerts Active Allergies Reaction Severity Comments Date Niaspan flushing 05/09/2005 Inactive Allergies NKDA 10/25/2003 Medications Active Medications SIG Qnty Indications Ordering Provider Date Toprol XL 1 tab twice 45tabs Vivek Candelario 07/01/2017 25mg Tablets daily Lissette Nails ER 24HR Co-Enzyme Q10 1 tablet by 90caps E78.0 Vivek Candelario 07/30/2015 200mg mouth daily Lissette Nails Capsules Lipitor 1/2 tab by mouth 45tabs Vivek CorwinRonaldo 06/23/2014 10mg Tablets daily. pm Lissette Nails Aspirin 1 po qd PM 30units Vivek Candelario 06/24/2007 81mg Chewtabs Lissette Nails Finasteride 1 po qd Am 90tabs Unknown 5mg Tablets Folic Acid B-6 & B-12 1 by mouth every Unknown day 50mg/100 mcg Tablets Cephalexin 4 tablets prior Unknown 500mg to dental work Tablets Multi Vitamin Daily 1 by mouth every Unknown day Tablets Hydralazine HCL 1 by mouth daily 30tabs Vivek Candelario 25mg as needed for Lissette Nails Tablets sbp over 170 for 30 minutes or more History Medications Memantine HCL 1 by mouth 60tabs R55 Gigi Isaac N.PRonaldo 01/03/2019 - 5mg twice a day 01/26/2019 Tablets Memantine HCL take 1/2 pill 60tabs R55 Danny Gonzalez 11/26/2018 - 10mg twice a day M.DRonaldo 01/03/2019 Tablets Medications Administered in Office Medication SIG Qnty Indications Ordering Provider Date [facility] Susan Porter M.D. 12/20/2018 Injection Immunizations CPT Code Status Date Vaccine Reaction Lot # [id number] Given 04/19/2018 Fluzone High Dose No immediate reaction [id number] noted. 67817 Given 02/17/2017 Influenza Virus Vaccine, [id number] Quadrivalent, Split, Preservative Free 84853 Given 02/12/2016 Fluzone High Dose 72065 Given 02/01/2015 Pneumococcal Conjugate [id number] Vaccine 13 Valent For Intramuscular Use 46108 Given 06/08/2014 Zoster (Zostavax) Q2037 Given 02/13/2014 Fluvirin Im 3Yrs And Older 01670 Given 02/04/2013 Influenza Virus 3Yrs & Over 93070 Given 04/05/2012 Tdap - [id number] Tetanus/Diptheria/Acellular Pertussis Q2038 Given 03/19/2012 Fluzone Vaccine Q2038 Given 02/17/2011 Fluzone Vaccine 19149 Given 10/16/1997 Pneumovax (History By Patient) 22933 Given 07/18/1996 Td (History By Patient) Vital Signs Date Vital Result Comment 02/15/2019 10:48am Height 68 inches 5'8" Weight 142.00 lb with shoes Heart Rate 82 /min BP Systolic Sitting 119 mmHg Lue BP Diastolic Sitting 64 mmHg Lue BP Systolic Standing 122 mmHg Lue BP Diastolic Standing 70 mmHg Lue BMI (Body Mass Index) 21.6 kg/m2 Ejection Fraction 50-55% Echo 04/16/18 01/27/2019 2:40pm Height 68 inches 5'8" Weight 140.00 lb Heart Rate 68 /min BP Systolic 134 mmHg BP Diastolic 78 mmHg BMI (Body Mass Index) 21.3 kg/m2 Results Test Date Facility Test Result H/L Range Note CBC Auto 01/31/2019 [facility] White Blood 7.2 10^3/uL Normal 3.5-10.[address] [place] [address] [phone] Red Blood Count 3.91 10^6/uL Low 4.18-5.48 Hemoglobin 12.7 g/dL Low 14.0-18.0 Hematocrit 36 % Low 42-52 Mean Corpuscular Volume 93 fL Normal 80-94 Mean Corpuscular Hemoglobin 32 pg High 27-31 Mean Corpuscular HGB Conc 35 g/dL Normal 31-36 Red Cell Distribution Width 13 % Normal 10-15 Platelet Count 203 10^3/uL Normal 150-450 Mean Platelet Volume 8.2 fL Normal 7.4-10.4 Abs Neutrophils 5.6 10^3/uL Normal 1.5-7.7 Abs Lymphocytes 0.9 10^3/uL Low 1.0-4.8 Abs Monocytes 0.6 10^3/uL Normal 0-0.8 Abs Eosinophils 0.1 10^3/uL Normal 0-0.6 Abs Basophils 0.1 10^3/uL Normal 0-0.2 Abs Nucleated RBC 0.0 10^3/uL Granulocyte % 77.0 % Lymphocyte % 12.2 % Monocyte % 8.2 % Eosinophil % 1.8 % Basophil % 0.8 % Nucleated Red Blood Cells % 0.0 Comp Metabolic Panel 01/31/2019 [facility] Sodium 128 mmol/L Low 135-[address] [place] [address] [phone] Potassium 4.8 mmol/L Normal 3.5-5.0 Chloride 95 mmol/L Low 101-111 Co2 Carbon Dioxide 26 mmol/L Normal 22-32 Anion Gap 7 mmol/L Normal 2-11 Glucose 87 mg/dL Normal 70-100 Blood Urea Nitrogen 24 mg/dL Normal 6-24 Creatinine 1.52 mg/dL High 0.67-1.17 BUN/Creatinine Ratio 15.8 Normal 8-20 Calcium 9.3 mg/dL Normal 8.6-10.3 Total Protein 6.2 g/dL Low 6.4-8.9 Albumin 4.2 g/dL Normal 3.2-5.2 Globulin 2.0 g/dL Normal 2-4 Albumin/Globulin Ratio 2.1 Normal 1-3 Total Bilirubin 0.60 mg/dL Normal 0.2-1.0 Alkaline Phosphatase 62 U/L Normal 34-104 Alt 10 U/L Normal 7-52 Ast 15 U/L Normal 13-39 Egfr Non- 43.7 >60 Egfr 52.9 >60 1 CBC Auto 01/27/2019 [facility] White Blood 6.8 10^3/uL Normal 3.5-10.[address] [place] [address] [phone] Red Blood Count 3.84 10^6/uL Low 4.18-5.48 Hemoglobin 12.5 g/dL Low 14.0-18.0 Hematocrit 36 % Low 42-52 Mean Corpuscular Volume 94 fL Normal 80-94 Mean Corpuscular Hemoglobin 33 pg High 27-31 Mean Corpuscular HGB Conc 35 g/dL Normal 31-36 Red Cell Distribution Width 14 % Normal 10-15 Platelet Count 170 10^3/uL Normal 150-450 Mean Platelet Volume 8.1 fL Normal 7.4-10.4 Abs Neutrophils 5.5 10^3/uL Normal 1.5-7.7 Abs Lymphocytes 0.6 10^3/uL Low 1.0-4.8 Abs Monocytes 0.5 10^3/uL Normal 0-0.8 Abs Eosinophils 0.1 10^3/uL Normal 0-0.6 Abs Basophils 0.1 10^3/uL Normal 0-0.2 Abs Nucleated RBC 0.0 10^3/uL Granulocyte % 80.6 % Lymphocyte % 8.9 % Monocyte % 8.0 % Eosinophil % 1.7 % Basophil % 0.8 % Nucleated Red Blood Cells % 0.0 Comp Metabolic Panel 01/27/2019 [facility] Sodium 129 mmol/L Low 135-[address] [place] [address] [phone] Potassium 5.2 mmol/L High 3.5-5.0 Chloride 96 mmol/L Low 101-111 Co2 Carbon Dioxide 26 mmol/L Normal 22-32 Anion Gap 7 mmol/L Normal 2-11 Glucose 104 mg/dL High 70-100 Blood Urea Nitrogen 27 mg/dL High 6-24 Creatinine 1.81 mg/dL High 0.67-1.17 BUN/Creatinine Ratio 14.9 Normal 8-20 Calcium 9.1 mg/dL Normal 8.6-10.3 Total Protein 6.2 g/dL Low 6.4-8.9 Albumin 4.2 g/dL Normal 3.2-5.2 Globulin 2.0 g/dL Normal 2-4 Albumin/Globulin Ratio 2.1 Normal 1-3 Total Bilirubin 0.50 mg/dL Normal 0.2-1.0 Alkaline Phosphatase 63 U/L Normal 34-104 Alt 11 U/L Normal 7-52 Ast 17 U/L Normal 13-39 Egfr Non- 35.7 >60 Egfr 43.2 >60 2 Urinalysis Profile 01/27/2019 [facility] Urine Color Aydee [address] [place] [address] [phone] Urine Appearance Turbid Urine Specific [place] 1.016 Normal 1.010-1.030 Urine pH 8.0 Normal 5-9 Urine Urobilinogen Negative Negative Urine Ketones Negative Negative Urine Protein 3+(>=500 mg/dL) Abnormal Negative Urine Leukocytes 1+ Abnormal Negative Urine Blood Negative Negative * * Abnormal Negative 3 Urine Nitrite Negative Negative Urine Bilirubin Negative Negative Urine Glucose Negative Negative Urine White Blood Cell 2+(11-20/hpf) Abnormal Absent Urine Red Blood Cell Trace(0-2/hpf) Absent Urine Bacteria 1+ Abnormal Absent Urine Triple Phosphate Cryst Present Abnormal Absent Urine Culture And 01/27/2019 [facility] Urine SEE RESULT [address] [place] [address] [phone] Vitamin B12 And 01/27/2019 [facility] Vitamin B12 645 pg/mL Normal 180-9 5 Folate Serum [address] [place] [address] [phone] Folic Acid (Folate) > 20.00 ng/mL >3.99 Laboratory test 01/27/2019 [facility] Erythrocyte Sed 8 mm/Hr Normal 0-[address] [place] [address] [phone] C Reactive Protein 1.49 mg/L Normal <8.01 Lipid Panel - 01/14/2019 [facility] Creatine 42 U/L Normal 10- [address] Kinase(CK) [place] [address] [phone] Comp Metabolic 01/14/2019 [facility] Sodium 133 Low 135-[address] mmol/[place] [address] [phone] Chloride 98 mmol/L Low 101-111 Co2 Carbon Dioxide 28 mmol/L Normal 22-32 Glucose 109 mg/dL High 70-100 Blood Urea Nitrogen 20 mg/dL Normal 6-24 Creatinine 1.61 mg/dL High 0.67-1.17 BUN/Creatinine Ratio 12.4 Normal 8-20 Calcium 9.4 mg/dL Normal 8.6-10.3 Total Protein 6.5 g/dL Normal 6.4-8.9 Albumin 4.3 g/dL Normal 3.2-5.2 Globulin 2.2 g/dL Normal 2-4 Albumin/Globulin Ratio 2.0 Normal 1-3 Total Bilirubin 0.90 mg/dL Normal 0.2-1.0 Alkaline Phosphatase 71 U/L Normal 34-104 Alt 10 U/L Normal 7-52 Ast 18 U/L Normal 13-39 Egfr Non- 40.9 >60 Egfr 49.5 >60 7 Potassium 5.2 mmol/L High 3.5-5.0 Anion Gap 7 mmol/L Normal 2-11 Lipid Profile 01/14/2019 [facility] Triglycerides 99 mg/dL 8 (Trig/Chol/HDL) [address] [place] [address] [phone] Cholesterol 167 mg/dL 9 HDL Cholesterol 49.6 mg/dL 10 LDL Cholesterol 98 mg/dL 11 CBC Auto 01/14/2019 [facility] White Blood 6.0 10^3/uL Normal 3.5-10.[address] [place] [address] [phone] Red Blood Count 4.22 10^6/uL Normal 4.18-5.48 Hemoglobin 13.4 g/dL Low 14.0-18.0 Hematocrit 40 % Low 42-52 Mean Corpuscular Volume 94 fL Normal 80-94 Mean Corpuscular Hemoglobin 32 pg High 27-31 Mean Corpuscular HGB Conc 34 g/dL Normal 31-36 Red Cell Distribution Width 13 % Normal 10-15 Platelet Count 173 10^3/uL Normal 150-450 Mean Platelet Volume 8.0 fL Normal 7.4-10.4 Abs Neutrophils 4.6 10^3/uL Normal 1.5-7.7 Abs Lymphocytes 0.8 10^3/uL Low 1.0-4.8 Abs Monocytes 0.4 10^3/uL Normal 0-0.8 Abs Eosinophils 0.2 10^3/uL Normal 0-0.6 Abs Basophils 0.0 10^3/uL Normal 0-0.2 Abs Nucleated RBC 0.0 10^3/uL Granulocyte % 77.0 % Lymphocyte % 13.1 % Monocyte % 6.0 % Eosinophil % 3.1 % Basophil % 0.8 % Nucleated Red Blood Cells % 0.0 1 Because ethnic data is not always readily available, this report includes an eGFR for both -Americans and non- Americans. The National Kidney Disease Education Program (NKDEP) does not endorse the use of the MDRD equation for patients that are not between the ages of 18 and 70, are , have extremes of body size, muscle mass, or nutritional status, or are non- or non-. According to the National Kidney Foundation, irrespective of diagnosis, the stage of the disease is based on the level of kidney function: Stage Description GFR(mL/min/1.73 m(2)) 1 Kidney damage with normal or decreased GFR 90 2 Kidney damage with mild decrease in GFR 60-89 3 Moderate decrease in GFR 30-59 4 Severe decrease in GFR 15-29 5 Kidney failure <15 (or dialysis) 2 Because ethnic data is not always readily available, this report includes an eGFR for both -Americans and non- Americans. The National Kidney Disease Education Program (NKDEP) does not endorse the use of the MDRD equation for patients that are not between the ages of 18 and 70, are , have extremes of body size, muscle mass, or nutritional status, or are non- or non-. According to the National Kidney Foundation, irrespective of diagnosis, the stage of the disease is based on the level of kidney function: Stage Description GFR(mL/min/1.73 m(2)) 1 Kidney damage with normal or decreased GFR 90 2 Kidney damage with mild decrease in GFR 60-89 3 Moderate decrease in GFR 30-59 4 Severe decrease in GFR 15-29 5 Kidney failure <15 (or dialysis) 3 *Ascorbic acid is present which may interfere with detection of blood. 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 Re01/27/19 SEX: M Status: REG REF SPEC: [id number] TOREY: 01/27/[address]: Gopi Isaac DEMOGRAPHIC ANALYST REQ: [id number] RECD: 01/27/19 STATUS: MADYSON CHAKRABORTY DR: Susan Porter III, MD _ SOURCE: URINE SPDESC: ORDERED: Urine Culture Urine Source: Catheterization Procedure Result Reported Site Urine Culture Final 01/30/19- 1018 ML Organism 1 KLEBSIELLA OXYTOCA Slaughter Count >100,000 (Many) CFU/ML Organism 2 PSEUDOMONAS AERUGINOSA Slaughter Count >100,000 (Many) CFU/ML 1. KLEBSIELLA OXYTOCA M.I.C. RX --------- ------ Ampicillin >=32 R Cefazolin 16 I Cefepime <=1 S Ceftriaxone <=1 S Ciprofloxacin <=0.25 S Gentamicin <=1 S Levofloxacin <=0.12 S Meropenem <=0.25 S Nitrofurantoin 32 S Tetracycline <=1 S Pipercillin/Tazobactam <=4 S Trimethoprim/Sulfamethoxazole <=20 S Amoxicillin/Clavulanic Acid 4 S Aztreonam <=1 S CONTINUED ON NEXT PAGE DEPARTMENT OF PATHOLOGY, [address] [place] [address] Dash Beltre M.D. Director [facility] # [id number] Patient: BRAD TAVAREZ [id number] (Continued) Specimen: [id number] Collected: 01/27/19 Received: 01/27/19 (Continued) Procedure Result Reported Site Urine Culture Final (continued) 01/30/19- 8 2. PSEUDOMONAS AERUGINOSA M.I.C. RX --------- ------ Cefazolin >=64 R Cefepime <=1 S Ciprofloxacin <=0.25 S Gentamicin <=1 S Levofloxacin 0.25 S Meropenem <=0.25 S Pipercillin/Tazobactam <=4 S Contact the Microbiology Department for any additional antibiotic reporting. * ML - Main Lab . END OF REPORT DEPARTMENT OF PATHOLOGY, [address] [place] [address] Dash Beltre M.D. Director [facility] # [id number] 5 Normal Range 180 to 914 Indeterminate Range 145 to 180 Deficient Range <145 6 FASTING Copy Result to: SUSAN PORTER ([id number]) 7 Because ethnic data is not always readily available, this report includes an eGFR for both -Americans and non- Americans. The National Kidney Disease Education Program (NKDEP) does not endorse the use of the MDRD equation for patients that are not between the ages of 18 and 70, are , have extremes of body size, muscle mass, or nutritional status, or are non- or non-. According to the National Kidney Foundation, irrespective of diagnosis, the stage of the disease is based on the level of kidney function: Stage Description GFR(mL/min/1.73 m(2)) 1 Kidney damage with normal or decreased GFR 90 2 Kidney damage with mild decrease in GFR 60-89 3 Moderate decrease in GFR 30-59 4 Severe decrease in GFR 15-29 5 Kidney failure <15 (or dialysis) 8 Desirable: <150 Borderline High: 150-199 High: 200-499 Very High: >500 9 Desirable: <200 Borderline High: 200-239 High: >239 10 Low: <40 Desirable: 40-60 High: >60 11 Desirable: <100 Near Optimal: 100-129 Borderline High: 130-159 High: 160-189 Very High: >189 Procedures Date Code Description Status 02/15/2019 27520 EKG Tracing & Interpretation Completed 10/01/2018 60451 Pace Maker Eval W/Iterative Adjment Dual Lead Completed 10/01/2018 33528 Pace Maker Eval W/Iterative Adjment Dual Lead Completed 09/24/2018 95144 Icd Eval Sing,Dual,Multi Lead Remote Recpt Transm Tech Completed Rev Tech S 09/24/2018 45162 Icd Eval Sing,Dual,Multi Lead Remote Recpt Transm Tech Completed Rev Tech S 09/24/2018 92827 Pacemaker Check Remote Up To 90Days Completed Single,Dual,Multiple Lead 09/24/2018 99589 Pacemaker Check Remote Up To 90Days Completed Single,Dual,Multiple Lead 08/24/2018 62639 EKG Tracing & Interpretation Completed 06/16/2012 64346409 Colonoscopy Completed 06/19/2011 [id number] Bone Mineral Density Test Completed 08/02/1996 47684784 Colonoscopy Completed Medical Devices Description No Information Available Encounters Type Date Location Provider Dx Diagnosis Office Visit 01/27/2019 [facility] Gigi Isaac, R55 Syncope and 2:30p [facility] collapse G47.10 Hypersomnia, unspecified G90.4 Autonomic dysreflexia G20 Parkinson's disease R41.3 Other amnesia Office Visit 11/26/2018 11:00a [facility] Danny Gonzalez, R55 Syncope and [facility] collapse G47.10 Hypersomnia, unspecified 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 02/15/2019 Z95.0 Presence of cardiac pacemaker Tracy Gordon, N.P. 02/15/2019 I25.10 Atherosclerotic heart disease of [place] Tracy Gordon N.PRonaldo coronary artery with 02/15/2019 I34.0 Nonrheumatic mitral (valve) insufficiency Tracy Gordon, N.P. 02/15/2019 I10 Essential (primary) hypertension Tracy Gordon, N.P. 01/27/2019 R55 Syncope and collapse Gigi Isaac, N.P. 01/27/2019 G47.10 Hypersomnia, unspecified Gigi Isaac, N.P. 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 01/27/2019 G20 Parkinson's disease Gigi Isaac, N.P. 01/27/2019 R41.3 Other amnesia Gigi Isaac, N.Braeden. 12/22/2018 Z11.1 Encounter for screening for respiratory Nurse Visit A tuberculosis 12/20/2018 Z02.89 Encounter for other administrative Susan Porter M.D. examinations 11/26/2018 R55 Syncope and collapse Danny Gonzalez M.D. 11/26/2018 G47.10 Hypersomnia, unspecified Danny Gonzalez M.D. 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 11/26/2018 G20 Parkinson's disease Danny Gonzalez M.D. 10/01/2018 I49.5 Sick sinus syndrome Ica Pacer Schedule 10/01/2018 Z95.0 Presence of cardiac pacemaker Vivek Nails M.D. 10/01/2018 Z95.0 Presence of cardiac pacemaker Ica Pacer Schedule 09/24/2018 I49.5 Sick sinus syndrome Vivek Nails M.D. 09/24/2018 I49.5 Sick sinus syndrome Remote Device Checks 09/24/2018 Z95.0 Presence of cardiac pacemaker Vivek Nails M.D. 09/24/2018 Z95.0 Presence of cardiac pacemaker Remote Device Checks 08/24/2018 I10 Essential (primary) hypertension Vivek Nails M.D. 08/24/2018 I25.10 Atherosclerotic heart disease of [place] Vivek Nails M.D. coronary artery with 08/24/2018 R55 Syncope and collapse Vivek Nails M.D. 08/24/2018 I34.0 Nonrheumatic mitral (valve) insufficiency Vivek Nails M.D. Plan of Treatment Future Appointment(s):02/21/2019 3:50 pm - Chase Louie MD at [facility] [id number]/15/2019 4:30 pm - Ica Pacer Schedule at [facility]07/04/2019 4:00 pm - Chase Louie MD at [facility] [id number]/27/2019 1:45 pm - Danny Gonzalez M.D. at [facility]02/15/2019 - Tracy S. Foster, N.P.R55 Syncope and dwdegcbaX92.0 Presence of cardiac pacemakerFollow up:Pacer check 03/22 OV [facility] 6moI25.10 Atherosclerotic heart disease of [place] coronary artery withI34.0 Nonrheumatic mitral (valve) [id number] Essential (primary) hypertension Functional Status Description No Information Available Mental Status Description No Information Available Referrals Refer to Reason for Referral Status Appt Date Rachel Newman MD Sent [address] [place] [id number] [phone]
--- OUTSIDE RECORDS SUMMARY | 2019-03-13 21:15 | XMS REPORT | Continuity of Care Document ---
:1930 External Reference #:[id number] Author Name Danny Gonzalez M.D. 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 Onset: 02/05/2016 outflow obstruction Minimal cognitive impairment Susan Porter M.D. 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 Onset: 11/26/2018 Parkinson's disease Danny Gonzalez M.D. Onset: 03/04/2019 Social History Type Date Description Comments Sex Unknown Tobacco Use Start: Unknown Never Smoked Cigarettes ETOH Use Occasionally consumes wine Tobacco Use Start: Unknown Patient has never smoked Recreational Drug Use Denies Drug Use Smoking Status Reviewed: 03/04/19 Patient has never smoked Exercise Type/Frequency Exercises sporadically goes to gym once weekly Exercise Type/Frequency Does not exercise Exercise Type/Frequency unable to go to the gym Allergies, Adverse Reactions, Alerts Active Allergies Reaction Severity Comments Date Niaspan flushing 05/09/2005 Inactive Allergies NKDA 10/25/2003 Medications Active Medications SIG Qnty Indications Ordering Provider Date Memantine HCL 1 tab by mouth 30tabs R55 Gigi Isaac 02/21/2019 5mg daily N.P. Tablets Toprol XL 1 tab twice 45tabs Vivek Candelario 07/01/2017 25mg Tablets daily Lissette Nails ER 24HR Co-Enzyme Q10 1 tablet by 90caps E78.0 Vivek Candelario 07/30/2015 200mg mouth daily Lissette Nails Capsules Lipitor 1/2 tab by mouth 45tabs Vivek Candelario 06/23/2014 10mg Tablets daily. pm Lsisette Nails Aspirin 1 po qd PM 30units [...] Gonzalez 11/26/2018 - 10mg twice a day M.Maria Guadalupe 01/03/2019 Tablets Medications Administered in Office Medication SIG Qnty Indications Ordering Provider Date BERNADINE Porter M.D. 12/20/2018 Injection Immunizations CPT Code Status Date Vaccine Reaction Lot # [id number] Given 04/19/2018 Fluzone High Dose No immediate reaction [id number] noted. 14165 Given 02/17/2017 Influenza Virus Vaccine, [id number] Quadrivalent, Split, Preservative Free 89527 Given 02/12/2016 Fluzone High Dose 70771 Given 02/01/2015 Pneumococcal Conjugate [id number] Vaccine 13 Valent For Intramuscular Use 04926 Given 06/08/2014 Zoster (Zostavax) Q2037 Given 02/13/2014 Fluvirin Im 3Yrs And Older 35564 Given 02/04/2013 Influenza Virus 3Yrs & Over 63839 Given 04/05/2012 Tdap - [id number] Tetanus/Diptheria/Acellular Pertussis Q2038 Given 03/19/2012 Fluzone Vaccine Q2038 Given 02/17/2011 Fluzone Vaccine 09789 Given 10/16/1997 Pneumovax (History By Patient) 99806 Given 07/18/1996 Td (History By Patient) Vital Signs Date Vital Result Comment 03/04/2019 1:56pm Height 68 inches 5'8" Weight 143.25 lb Heart Rate 68 /min BP Systolic Sitting 140 mmHg BP Diastolic Sitting 84 mmHg BMI (Body Mass Index) 21.8 kg/m2 02/15/2019 10:48am Height 68 inches 5'8" Weight 142.00 lb with shoes Heart Rate 82 /min BP Systolic Sitting 119 mmHg Lue BP Diastolic Sitting 64 mmHg Lue BP Systolic Standing 122 mmHg Lue BP Diastolic Standing 70 mmHg Lue BMI (Body Mass Index) 21.6 kg/m2 Ejection Fraction 50-55% Echo 04/16/18 Results Test Date Facility Test Result H/L Range Note CBC Auto 01/31/2019 [facility] White Blood 7.2 10^3/uL Normal 3.5-10.[address] [place] [address] [phone] Red Blood Count 3.91 10^6/uL Low 4.18-5.48 [...] Cells % 0.0 Comp Metabolic Panel 01/31/2019 [facility] Sodium 128 mmol/L Low 135-[address] [place] [address] [phone] Potassium 4.8 mmol/L Normal 3.5-5.0 Chloride 95 [...] Egfr 52.9 >60 1 CBC Auto 01/27/2019 [facility] White Blood 6.8 10^3/uL Normal 3.5-10.[address] [place] [address] [phone] Red Blood Count 3.84 10^6/uL Low 4.18-5.48 [...] Cells % 0.0 Comp Metabolic Panel 01/27/2019 [facility] Sodium 129 mmol/L Low 135-145 [address] [place] [address] [phone] Potassium 5.2 mmol/L High 3.5-5.0 Chloride 96 [...] Egfr 43.2 >60 2 Urinalysis Profile 01/27/2019 [facility] Urine Color [address] [place] [address] [phone] Urine Appearance Turbid Urine Specific [place] 1.016 Normal 1.010-1.030 Urine pH 8.0 Normal [...] Present Abnormal Absent Urine Culture And 01/27/2019 [facility] Urine SEE RESULT [address] [place] [address] [phone] Vitamin B12 And 01/27/2019 [facility] Vitamin B12 645 pg/mL Normal 180-9 5 Folate Serum [address] [place] [address] [phone] Folic Acid (Folate) > 20.00 ng/mL >3.99 Laboratory test 01/27/2019 [facility] Erythrocyte Sed 8 mm/Hr Normal 0-[address] [place] [address] [phone] C Reactive Protein 1.49 mg/L Normal <8.01 Lipid Panel - 01/14/2019 [facility] Creatine 42 U/L Normal 10- [address] Kinase(CK) [place] [address] [phone] Comp Metabolic 01/14/2019 [facility] Sodium 133 Low 135-[address] mmol/[place] [address] [phone] Chloride 98 mmol/L Low 101-111 Co2 Carbon [...] 7 mmol/L Normal 2-11 Lipid Profile 01/14/2019 [facility] Triglycerides 99 mg/dL 8 (Trig/Chol/HDL) [address] [place] [address] [phone] Cholesterol 167 mg/dL 9 HDL Cholesterol 49.6 mg/dL 10 LDL Cholesterol 98 mg/dL 11 CBC Auto 01/14/2019 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 KLEBSIELLA OXYTOCA [facility]. RX --------- ------ Ampicillin >=32 R Cefazolin 16 I Cefepime <=1 S Ceftriaxone <=1 S Ciprofloxacin <=0.25 S Gentamicin <=1 S Levofloxacin <=0.12 S Meropenem <=0.25 S Nitrofurantoin 32 S Tetracycline <=1 S Pipercillin/Tazobactam <=4 S Trimethoprim/Sulfamethoxazole <=20 S Amoxicillin/Clavulanic Acid 4 S Aztreonam <=1 S CONTINUED ON NEXT PAGE DEPARTMENT OF PATHOLOGY, [address] [place] [address] Dash Beltre M.D. Director ELIANA # [id number] Patient: BRAD TAVAREZ [id number] (Continued) Specimen: [id number] Collected: 01/27/19 Received: 01/27/19 (Continued) Procedure Result [...] . END OF REPORT DEPARTMENT OF PATHOLOGY, [address] [place] [address] Dash Beltre M.D. Director [facility] # [id number] Normal Range 180 to 914 Indeterminate Range 145 to 180 Deficient Range <145 6 FASTING Copy Result to: SUSAN PORTER ([id number]) 7 Because ethnic data is not always [...] >189 Procedures Date Code Description Status 02/15/2019 19737 EKG Tracing & Interpretation Completed 02/14/2019 13893 Repair Immediate Wound < 2.6CM Completed Face/Ear/Eyelid/Nose/Lip/Muc Mem 02/14/2019 73509 Excise Malig Lesion 1.1-2CM Face/Ear/Eyelid/Nose/Lip Completed 10/01/2018 56307 Pace Maker Eval W/Iterative Adjment Dual Lead Completed 10/01/2018 54563 Pace Maker Eval W/Iterative Adjment Dual Lead Completed 09/24/2018 84169 Icd Eval Sing,Dual,Multi Lead Remote Recpt Transm Tech Completed Rev Tech S 09/24/2018 24037 Icd Eval Sing,Dual,Multi Lead Remote Recpt Transm Tech Completed Rev Tech S 09/24/2018 20670 Pacemaker Check Remote Up To 90Days Completed Single,Dual,Multiple Lead 09/24/2018 86346 Pacemaker Check Remote Up To 90Days Completed Single,Dual,Multiple Lead 06/16/2012 71162993 Colonoscopy Completed 06/19/2011 622254137 Bone Mineral Density Test Completed 08/02/1996 52357716 Colonoscopy Completed Medical Devices Description No Information Available Encounters Type Date Location Provider Dx Diagnosis Office Visit 02/15/2019 [facility] Tracy Gordon, R55 Syncope and 11:00a Of Sock Liner N.P. 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 03/04/2019 G20 Parkinson's disease Danny Gonzalez M.D. 02/21/2019 Z48.817 Encounter for surgical aftercare Chase Louie MD following surgery on the skin and subcutaneous tissue 02/15/2019 R94.31 Abnormal electrocardiogram [ECG] [EKG] Des Bain M.D. 02/15/2019 R55 Syncope and collapse Janett CroftP. 02/15/2019 Z95.0 Presence of cardiac pacemaker Tracy Gordon, N.P. 02/15/2019 I25.10 Atherosclerotic heart disease of Tracy Manjarrez Evan, N.P. eek coronary artery with 02/15/2019 I34.0 Nonrheumatic mitral (valve) Tracy Gordon, N.P. insufficiency 02/15/2019 I10 Essential (primary) hypertension Tracy Gordon, N.P. 02/14/2019 C44.319 Basal cell carcinoma of skin of other Chase Louie MD parts of face 01/27/2019 R55 Syncope and collapse Gigi Isaac, N.P. 01/27/2019 G47.10 Hypersomnia, unspecified Gigi Isaac, N.P. 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 01/27/2019 G20 Parkinson's disease Gigi Isaac, N.P. 01/27/2019 R41.3 Other amnesia Gigi Isaac, N.P. 12/22/2018 Z11.1 Encounter for screening for Nurse Visit A respiratory tuberculosis 12/20/2018 Z02.89 Encounter for other administrative [...] Presence of cardiac pacemaker Remote Device Checks Plan of Treatment Future Appointment(s):04/29/2019 2:00 pm - Gigi Isaac N.P. at [facility]08/22/2019 3:00 pm - Chase Louie MD at [facility] Wcfyyhhmzxx95/15/2019 4:30 pm - Ica Pacer Schedule at [facility]07/04/2019 4:00 pm - Chase Louie MD at [facility] Kzufiomusdq96/15/2019 - Susan Porter M.D.Z02.89 Encounter for other administrative examinationsComments: Day program forms completed and PPD placedFollow up:Nurse visit for PPD read and ear lavage in 2 days Functional Status Description No Information Available Mental Status Description No Information Available Referrals Refer to Reason for Referral Status Appt Rachel Newman MD Sent [address] [place] [phone]
--- OUTSIDE RECORDS SUMMARY | 2019-03-13 21:16 | XMS REPORT | Continuity of Care Document ---
:1930 External Reference #:[id number] Author Name Gigi Isaac N.P. 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 Onset: 02/05/2016 outflow obstruction Minimal cognitive impairment Susan Porter M.D. Onset: 02/17/2017 Atherosclerotic heart disease of zuni Susan Porter M.D. Onset: 2016 coronary artery [...] Use Denies Drug Use Smoking Status Reviewed: 01/27/19 Patient has never smoked Exercise Type/Frequency Exercises sporadically goes to gym once weekly Allergies, Adverse Reactions, Alerts Active Allergies Reaction [...] Vivek Candelario 06/23/2014 10mg Tablets daily. pm Lissette Nials Aspirin 1 po qd PM 30units Vivek [...] Code Status Date Vaccine Reaction Lot # 97932 Given 04/19/2018 Fluzone High Dose No immediate reaction [id number] noted. 64449 Given 02/17/2017 Influenza Virus Vaccine, [id number] Quadrivalent, Split, Preservative Free 62078 Given 02/12/2016 Fluzone High Dose 75862 Given 02/01/2015 Pneumococcal Conjugate [id number] Vaccine 13 Valent For Intramuscular Use 74082 Given 06/08/2014 Zoster (Zostavax) Q2037 Given 02/13/2014 Fluvirin Im 3Yrs And Older 40642 Given 02/04/2013 Influenza Virus 3Yrs & Over 37184 Given 04/05/2012 Tdap - [id number] Tetanus/Diptheria/Acellular Pertussis Q2038 Given 03/19/2012 Fluzone Vaccine Q2038 Given 02/17/2011 Fluzone Vaccine 12085 Given 10/16/1997 Pneumovax (History By Patient) 35402 Given 07/18/1996 Td (History By Patient) Vital Signs Date Vital Result Comment 01/27/2019 2:40pm Height 68 inches 5'8" Weight 140.00 lb Heart Rate 68 /min BP Systolic 134 mmHg BP Diastolic 78 mmHg BMI (Body Mass Index) 21.3 kg/m2 12/20/2018 4:11pm Height 68 inches 5'8" Weight 144.00 lb Heart Rate 63 /min BP Systolic Sitting 173 mmHg BP Diastolic Sitting 89 mmHg BMI (Body Mass Index) 21.9 kg/m2 Results Test Date Facility Test Result H/L Range Note Lipid Panel - 01/14/2019 [facility] Creatine 42 U/L Normal 10- [address] Kinase(CK) [place] [address] [phone] Comp Metabolic 01/14/2019 [facility] Sodium 133 mmol/L Low 135 -[address] [place] [address] [phone] Chloride 98 mmol/L Low 101-111 Co2 Carbon [...] Egfr Non- 40.9 >60 Egfr 49.5 >60 2 Potassium 5.2 mmol/L High 3.5-5.0 Anion Gap 7 mmol/L Normal 2-11 Lipid Profile 01/14/2019 [facility] Triglycerides 99 mg/dL 3 (Trig/Chol/HDL) [address] [place] [address] [phone] Cholesterol 167 mg/dL 4 HDL Cholesterol 49.6 mg/dL 5 LDL Cholesterol 98 mg/dL 6 CBC Auto 01/14/2019 [facility] White Blood 6.0 10^3/uL Normal 3.5-10.[address] [place] [address] [phone] Red Blood Count 4.22 10^6/uL Normal 4.18-5.48 [...] Nucleated Red Blood Cells % 0.0 1 FASTING Copy Result to: SUSAN PORTER ([id number]) 2 Because ethnic data is not always [...] 5 Kidney failure <15 (or dialysis) 3 Desirable: <150 Borderline High: 150-199 High: 200-499 Very High: >500 4 Desirable: <200 Borderline High: 200-239 High: >239 5 Low: <40 Desirable: 40-60 High: >60 6 Desirable: <100 Near Optimal: 100-129 Borderline High: 130-159 High: 160-189 Very High: >189 Procedures Date Code Description Status 10/01/2018 00482 Pace Maker Eval W/Iterative Adjment Dual Lead Completed 10/01/2018 47701 Pace Maker Eval W/Iterative Adjment Dual Lead Completed 09/24/2018 64836 Icd Eval Sing,Dual,Multi Lead Remote Recpt Transm Tech Completed Rev Tech S 09/24/2018 53010 Icd Eval Sing,Dual,Multi Lead Remote Recpt Transm Tech Completed Rev Tech S 09/24/2018 92439 Pacemaker Check Remote Up To 90Days Completed Single,Dual,Multiple Lead 09/24/2018 73469 Pacemaker Check Remote Up To 90Days Completed Single,Dual,Multiple Lead 08/24/2018 67848 EKG Tracing & Interpretation Completed 06/16/2012 94463878 Colonoscopy Completed 06/19/2011 263504998 Bone Mineral Density Test Completed 08/02/1996 59848864 Colonoscopy Completed Medical Devices Description No Information Available Encounters Type Date Location Provider Dx Diagnosis Office Visit 11/26/2018 [facility] Danny Gonzalez, R55 Syncope and 11:00a Services Of Tracy Mclaughlin collapse G47.10 Hypersomnia, unspecified 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 01/27/2019 G47.10 Hypersomnia, unspecified Gigi Isaac, N.P. 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 01/27/2019 G20 Parkinson's disease Gigi Isaac N.P. 01/27/2019 R41.3 Other amnesia Zane Torres.Braeden. 12/22/2018 Z11.1 Encounter for screening for respiratory [...] M.D. 08/24/2018 I25.10 Atherosclerotic heart disease of zuni Vivek Nails M.D. coronary artery with 08/24/2018 R55 Syncope and collapse Vivek Nails M.D. 08/24/2018 I34.0 Nonrheumatic mitral (valve) insufficiency Vivek Nails M.D. Plan of Treatment Future Appointment(s):03/22/2019 4:30 pm - Ica Pacer Schedule at [facility]02/14/2019 2:00 pm - Chase Louie MD at [facility] Jpcudpffotl32/27/ 2020 4:00 pm - Chase Louie MD at [facility] Iatmkzhpzfd46/10/2019 11:00 am - Tracy Gordon N.P. at [facility]03/04/2019 1:45 pm - Danny Gonzalez M.D. at [facility]12/20/2018 - Susan Porter M.D.Z02.89 Encounter for other administrative examinationsComments:Day program forms completed and PPD placedFollow up:Nurse visit for PPD read and ear lavage in 2 days Functional Status Description No Information Available Mental Status Description No Information Available Referrals Refer to Reason for Referral Status Appt Date Rachel Newman MD Sent [address] [place] [phone]
--- NOTE | 2019-03-13 22:06 | ED ---
Nausea/Vomiting/Diarrhea HPI - HPI Summary HPI Summary: Per patient's , patient has had 2 episodes of persistent vomiting starting yesterday. Patient started vomiting during dinner last night and continued to vomit a couple hours. Vomiting then resolved. Patient was able to eat breakfast this morning without issue. And then at lunch, around noon, patient started vomiting again and continued to vomit until presenting to the ED this evening. Patient has dementia, cannot provide history of present illness. Patient's states patient has had prior episodes of getting rice stuck in his throat, but has never been evaluated for this. Patient's states patient not tolerating by mouth intake of fluids or solids at this time without vomiting. Patient also has loose cough which has been present for a couple days. Denies productive cough. Patient himself denies headache, chest pain, sore throat, nausea, shortness of breath, urine symptoms, change in BM at this time. Medical history as Parkinson's, dementia, HTN, cardiac bypass, pacemaker , GERD. - History of Current Complaint Chief Complaint: EDNauseaVomitDiarrh Stated Complaint: NAUSEA/VOVMITNG PER PT Time Seen by Provider: 03/13/19 22:02 Hx Obtained From: Patient, Family/Chemical Operator Onset/Duration: Sudden Onset, Lasting Hours Severity Currently: None Pain Intensity: 0 Pain Scale Used: 0-10 Numeric Aggravating Factor(s): Food Alleviating Factor(s): Spontaneous Resolution Vomiting Frequency: Every 15-60 minutes Nausea/Vomiting Duration: 0-12 hours Vomiting Characteristics: Nonbilious Diarrhea Presence: No - Allergies/Home Medications Allergies/Adverse Reactions: Allergies Allergy/AdvReac Type Severity Reaction Status Date / Time niacin Allergy Flushing Verified 03/13/19 21:09 [From Niaspan Extended-Release] poison jacques extract Allergy Unknown Verified 03/14/19 15:06 Reaction Details Home Medications: Home Medications Memantine HCl 5 mg PO BID 03/13/19 [History Confirmed 03/13/19] PMH/Surg Hx/FS Hx/Imm Hx Endocrine/Hematology History: Denies: Hx Bone Marrow Disease, Hx Diabetes, Hx Sickle Cell Disease, Hx Thyroid Disease Cardiovascular History: Reports: Hx Angina, Hx Auto Implanted Cardiovert Defib, Hx Coronary Artery Disease, Hx Hypercholesterolemia, Hx Hypertension - ON MEDICATION FOR, Hx Myocardial Infarction, Hx Pacemaker/ICD - MEDTRON[employer], Hx Syncope, Hx Valvular Heart Disease - UNSURE IF VALVE PROBLEMS, Other Cardiovascular Problems/Disorders - HX OF SYNCOPE- SEEN IN ER 06/2016/ HX OF AFIB Respiratory History: Denies: Hx Asthma, Hx Chronic Obstructive Pulmonary Disease (COPD) GI History: Reports: Hx Gastroesophageal Reflux Disease - HX OF, Other GI Disorders - POLYP REMOVED Denies: Hx Ulcer History: Reports: Hx Renal Disease - CHRONIC RENAL INSUFFICIENCY, Other Problems/Disorders - BPH,/CHRONIC RENAL INSUFFICIENCYPER DR. SANDHU H&P Musculoskeletal History: Reports: Hx Arthritis - JOINT REPLACEMENT, Hx Tendonitis - HX OF, Other Musculoskeletal History - MUSCLE PROBLEMS IN LOWER BACK 05/2012- NO PROBLEM NOW Sensory History: Reports: Hx Cataracts - JOSE, Hx Contacts or Glasses - READING, Hx Hearing Aid - BILATERAL Opthamlomology History: Reports: Hx Cataracts - OJSE, Hx Contacts or Glasses - READING Neurological History: Reports: Hx Migraine - HX OF- PATIENT STATES NOT RECENTLY , Hx Transient Ischemic Attacks (TIA), Other Neuro Impairments/Disorders - syncope Psychiatric History: Denies: Hx Panic Disorder - Cancer History Cancer Type, Location and Year: skin - Surgical History Surgery Procedure, Year, and Place: 1993-LEFT HIP REPLACEMENTREVISION LEFT HIP- [id number], [id number] - CATARACT;RIGHT TOTAL KNEE-2008- [id number] EYE CATARACTBypass Surgeries [id number] MONITOR - DR BYRD-LARGE COLON MASS/POLYP w/ APPE- [id number] KNEE PUTRORZ44/2011- EVENT MONITORCARPAL TUNNEL RELEASE-RIGHT. RIGHT KNEE IN [facility] Hx Anesthesia Reactions: No Infectious Disease History: Yes Infectious Disease History: Reports: Hx Shingles Denies: Hx Hepatitis, Hx Human Immunodeficiency Virus (HIV), Hx of Known/ Suspected MRSA, Hx Tuberculosis, Hx Known/Suspected VRE, Hx Known/Suspected VRSA , History Other Infectious Disease, Traveled Outside the [place] in Last 30 Days - Family History Known Family History: Positive: Hypertension - Social History Alcohol Use: Occasionally Alcohol Amount: ONE [place]UNCE PORT nightly Substance Use Type: Reports: None Hx Tobacco Use: No Smoking Status (MU): Never Smoked Tobacco Have You Smoked in the Last Year: No Review of Systems Constitutional: Negative Eyes: Negative ENT: Negative Cardiovascular: Negative Respiratory: Negative Positive: Vomiting, Nausea Genitourinary: Negative Musculoskeletal: Negative Skin: Negative Neurological: Negative Psychological: Normal All Other Systems Reviewed And Are Negative: Yes Physical Exam Triage Information Reviewed: Yes Vital Signs On Initial Exam: Initial Vitals Temp Pulse Resp BP Pulse Ox 98.2 F 91 16 172/90 96 03/13/19 21:04 03/13/19 21:04 03/13/19 21:04 03/13/19 21:04 03/13/19 21:04 Vital Signs Reviewed: Yes Appearance: Positive: Well-Appearing Skin: Positive: Warm Head/Face: Positive: Normal Head/Face Inspection Eyes: Positive: Normal ENT: Positive: Normal ENT inspection Neck: Positive: Supple Respiratory/Lung Sounds: Positive: Clear to Auscultation Cardiovascular: Positive: Normal Abdomen Description: Positive: Nontender Musculoskeletal: Positive: Normal Neurological: Positive: Normal Psychiatric: Positive: Normal AVPU Assessment: Alert - Genesis Coma Scale Best Eye Response: 4 - Spontaneous Best Motor Response: 6 - Obeys Commands Best Verbal Response: 5 - Oriented Coma Scale Total: 15 Procedures - Sedation Patient Received Moderate/Deep Sedation with Procedure: No Diagnostics - Vital Signs Vital Signs Temp Pulse Resp BP Pulse Ox 03/13/19 21:04 98.2 F 91 16 172/90 96 - Laboratory Result Diagrams: 03/14/19 06:50 03/14/19 06:50 Lab Statement: Any lab studies that have been ordered have been reviewed, and results considered in the medical decision making process. Naus/Vom/Diarrhea Course/Dx - Course Course Of Treatment: Per patient's , patient has had 2 episodes of persistent vomiting starting yesterday. Patient started vomiting during dinner last night and continued to vomit a couple hours. Vomiting then resolved. Patient was able to eat breakfast this morning without issue. And then at lunch , around noon, patient started vomiting again and continued to vomit until presenting to the ED this evening. Patient has dementia, cannot provide history of present illness. Patient's states patient has had prior episodes of getting rice stuck in his throat, but has never been evaluated for this. Patient's states patient not tolerating by mouth intake of fluids or solids at this time without vomiting. Patient also has loose cough which has been present for a couple days. Denies productive cough. Patient himself denies headache, chest pain, sore throat, nausea, shortness of breath, urine symptoms, change in BM at this time. Medical history as Parkinson's, dementia, HTN, cardiac bypass, pacemaker, GERD. Vital signs within normal limits. WBC 12.9. Labs otherwise at patient baseline. Chest x-ray unremarkable. Patient in no apparent distress. Patient was able to tolerate by mouth fluids. CT chest abdomen and pelvis negative. Discussed patient with hospitalist Dr. Umaña who agreed to admit for further evaluation. - Differential Dx/Diagnosis Provider Diagnosis: Nausea & vomiting, Inadequate oral intake Condition At Discharge: Stable Discharge ED - Sign-Out/Discharge Documenting (check all that apply): Patient Departure - Discharge Plan Condition: Stable Disposition: ADMITTED TO [facility] - Billing Disposition and Condition Condition: STABLE Disposition: Admitted to [facility]
[2019-03-13 22:22] LABS: ABS Lymphocytes 0.2 10^3/ul (1.0-4.8); ABS Monocytes 0.5 10^3/ul (0-0.8); ABS Neutrophils 12.2 10^3/ul (1.5-7.7); Hematocrit 38 % (42-52); Hemoglobin 12.9 g/dL (14.0-18.0); Lymphocyte % 1.9 %; Mean Corpuscular HGB Conc 34 g/dL (31-36); Mean Corpuscular Hemoglobin 32 pg (27-31); Mean Corpuscular Volume 93 fL (80-94); Mean Platelet Volume 7.3 fL (7.4-10.4); Platelet Count 182 10^3/uL (150-450); Red Blood Count 4.07 10^6 /uL (4.18-5.48); Red Cell Distribution Width 13 % (10-15); White Blood Count 12.9 10^3/uL (3.5-10.8)
[2019-03-13] MEDS ORDERED: NS 0.9% 1000 ML** 1,000 ML IV ONE (22:25)
[2019-03-13] MEDS ORDERED: Ondansetron INJ* 2 MG/ML VIAL IV ONE (22:25)
[2019-03-13 22:39] LABS: Albumin 4.1 g/dL (3.2-5.2); Albumin/Globulin Ratio 1.7 (1-3); BUN/Creatinine Ratio 15.2 (8-20); C Reactive Protein 54.64 mg/L (<8.01); Calcium 9.6 mg/dL (8.6-10.3); EGFR African American 44.1 (>60); EGFR Non-African American 36.4 (>60); Globulin 2.4 g/dL (2-4); Potassium 4.1 mmol/L (3.5-5.0); Total Bilirubin 1.1 mg/dL (0.2-1.0); Total Protein 6.5 g/dL (6.4-8.9)
[2019-03-14] MEDS ORDERED: Iodixanol* (CONTRAST) 320 MG/ML 100 ML SDV IV ONE (01:19)
[2019-03-14 02:57] LABS: Urine Appearance Cloudy; Urine Bacteria 1+ (Absent); Urine Bilirubin Negative (Negative); Urine Blood 2+ (Negative); Urine Color Yellow; Urine Glucose Negative (Negative); Urine Ketones Negative (Negative); Urine Nitrite Negative (Negative); Urine Protein 2+(100 mg/dL) (Negative); Urine Red Blood Cell 2+(6-10/hpf) (Absent); Urine Specific Gravity 1.032 (1.010-1.030); Urine Urobilinogen Negative (Negative); Urine White Blood Cell Trace(0-5/hpf) (Absent)
[2019-03-14 07:07] LABS: ABS Lymphocytes 0.6 10^3/ul (1.0-4.8); ABS Monocytes 0.4 10^3/ul (0-0.8); ABS Neutrophils 10.7 10^3/ul (1.5-7.7); Eosinophil % 0.1 %; Hematocrit 33 % (42-52); Hemoglobin 11.6 g/dL (14.0-18.0); Lymphocyte % 4.7 %; Mean Corpuscular HGB Conc 35 g/dL (31-36); Mean Corpuscular Hemoglobin 32 pg (27-31); Mean Corpuscular Volume 92 fL (80-94); Mean Platelet Volume 7.3 fL (7.4-10.4); Platelet Count 159 10^3/uL (150-450); Red Blood Count 3.62 10^6 /uL (4.18-5.48); Red Cell Distribution Width 13 % (10-15); White Blood Count 11.7 10^3/uL (3.5-10.8)
[2019-03-14 07:18] LABS: Calcium 8.8 mg/dL (8.6-10.3); Potassium 4.3 mmol/L (3.5-5.0)
[2019-03-14 07:24] LABS: BUN/Creatinine Ratio 15.9 (8-20); EGFR African American 50.9 (>60); EGFR Non-African American 42.1 (>60)
[2019-03-14] MEDS: NS 0.9% 1000 ML** 1,000 ML IV SCH ×2 (07:57→22:13)
[2019-03-14] MEDS: cefTRIAXone(*) 1 GM in NS 0.9% 50 ML* 50 ML IVPB SCH (07:57)
--- NOTE | 2019-03-14 10:32 | HP ---
Amended report to take co-signing physician off report. CC: Dr. Andrez Porter; Dr. Gonzalez * HISTORY AND PHYSICAL: DATE OF ADMISSION: 03/14/19 PRIMARY CARE PHYSICIAN: Dr. Andrez Porter. NEUROLOGIST: Dr. Gonzalez. CHIEF COMPLAINT: Vomiting, inability to tolerate p.o. HISTORY OF PRESENT ILLNESS: This is an 88-year-old male with past medical history of coronary artery disease, status post 7 vessel coronary artery bypass graft in 2006, history of stroke, post bypass grafting with just loss of sensation on the left hand, newly diagnosed Parkinson's per family, and also some dementia, who came in due to recurrent vomiting. The patient himself could not provide much history due to his dementia, so the rest of the history was obtained by speaking to the , who stated that the day before yesterday the patient was vomiting with dinner, although he tolerated breakfast and lunch and yesterday he tolerated breakfast but since lunch has not been able to keep anything down and was having immediate vomiting as soon as he would eat anything even whether it is solid or liquid, at which point she finally decided to bring him to the ER. He has also had decreased ability to walk normally at baseline. He is able to walk independently without any assistive devices. Sometimes he does use a cane, but yesterday he was having a hard time walking as well. also noticed he was having some breathing spells where he would have rattly breath sounds and was looking as if he was a bit short of breath and having coughing spells as well. The patient also complained of pain in his esophagus area along with the nausea and vomiting to the . During my evaluation, he again was quiet. Denied any symptoms as he remember, which is normal according to the patient's . So the rest of the history was obtained by reviewing records. PAST MEDICAL HISTORY AND SURGICAL HISTORY: Include coronary artery disease, status post seven vessel bypass graft in 2006, had stroke with left hand decreased sensation, post coronary artery bypass grafting in 2006; chronic kidney disease; multiple skin cancer including melanoma resection; hypertension ; dyslipidemia; benign prostatic hypertrophy with chronic Stevens, uses leg bag; Parkinson's disease and dementia. Multiple joint surgeries including 4 left hip replacements due to some infection. He needed removal of hardware and then insertion of a pacer and then reinsertion of new hip. Right knee replacement, tonsillectomy, appendectomy, sick sinus syndrome, status post pacemaker placement in 2013, carpal tunnel repair, and previous history of recurrent syncope. HOME MEDICATIONS: The patient is currently on: 1. Metoprolol 25 mg oral twice a day. 2. Finasteride 5 mg oral daily. 3. Multivitamin 1 tablet oral daily. 4. Aspirin 81 mg every evening. 5. Lipitor 10 mg oral daily. 6. Folic acid, vitamin B6 and B12 one tablet oral daily. 7. Coenzyme-Q10 100 mg soft gel 2 tablets oral daily. 8. Memantine 5 mg oral b.i.d. 9. Vitamin B complex 150 mg oral daily. ALLERGIES: The patient is allergic to NIACIN, causes flushing and POISON TAMMY causes unknown reaction. FAMILY HISTORY: Noncontributory at his age of 88. SOCIAL HISTORY: He is , lives with is who is his healthcare proxy. Then says that the patient is DNR, but she is okay with any feeding tube if necessary. No other history of alcohol, smoking, or illicit drug use. He does use cane at home to ambulate. REVIEW OF SYSTEMS: Fourteen point review of systems unable to obtain due to the patient's dementia. PHYSICAL EXAMINATION GENERAL: The patient is arousable. Once awake, he follows commands appropriately. VITAL SIGNS: In the ER, BP was noted to be 110/55, heart rate 81, respiration rate 16, saturating 92% on room air, temperature was noted to be 98.2. HEAD AND NECK: Bilateral pupils are reactive. Oral mucosa was dry. Neck is supple. No jugular venous distention. LUNGS: Clear to auscultation in the upper lobes with some bibasilar crackles were heard. HEART: S1, S2, systolic murmur. ABDOMEN: Soft, nontender, nondistended. EXTREMITIES: No cyanosis, clubbing, or edema. DIAGNOSTIC STUDIES/LAB DATA: CBC shows elevated white count of 12.9. Hemoglobin and hematocrit were stable. Platelet count was noted to be stable. Comprehensive metabolic panel shows sodium of 126, BUN elevated at 21, creatinine elevated at 1.18, random glucose elevated at 163. C-reactive protein elevated at 54.64. Urinalysis was showing yellow urine with 2+ blood and 2+ leuk esterase, negative for nitrite. CT chest, abdomen and pelvis shows status post sternotomy, coronary artery bypass graft with pacemaker course, pulmonary interstitial with mild bilateral lower lobe fibroelastic change question of minimal patchy infiltrate. Abdomen and pelvis shows left hip prosthesis with beam hardening artifact Stevens catheter and bladder. Small right inguinal hernia contained bowel segment with no strangulation or obstruction and otherwise negative CT abdomen and pelvis. No obstruction or distention. IMPRESSION: This is an 88-year-old male here with recurrent vomiting, unable to tolerate anything p.o. with history of dementia, possible dysphagia. ASSESSMENT AND PLAN: 1. Nausea and vomiting, unable to tolerate p.o. We will get a swallow evaluation and consider GI consult if he fails swallow evaluation as the is okay with any feeding tube. 2. Hyponatremia due to decreased p.o. intake. We will start the patient on IV hydration. 3. Possible urinary tract infection. I will start the patient on ceftriaxone. 4. History of coronary artery disease, status post bypass graft. We will hold home medications until cleared by swallow team to restart his aspirin therapy. 5. History of hypertension. We will hold his metoprolol. 6. Benign prostatic hypertrophy. We will hold his finasteride. The patient already has a Stevens. 7. History of dyslipidemia. We will hold the atorvastatin until cleared. 8. History of dementia, Parkinson's disease, and stroke. We will hold his memantine. 9. DVT prophylaxis with sequential compression device. 10. Code status. The patient is DNR. We will update MOLST form. [id number]/[facility]PS #: [id number] MTDD
[2019-03-14] MEDS ORDERED: fentaNYL* 50 MCG/ML 2 ML VIAL (100 MCG VIAL) ONE (14:05)
[2019-03-14] MEDS ORDERED: Midazolam* 1 MG/ML 10 ML VIAL (10 MG) ONE (14:05)
[2019-03-14] MEDS: Finasteride TAB* 5 MG PO SCH (17:37)
[2019-03-14] MEDS: Atorvastatin* 10 MG TAB PO SCH (17:37)
[2019-03-14] MEDS: Memantine TAB* 10 MG PO SCH (17:37)
[2019-03-14] MEDS: Metoprolol Succinate XL TAB* 25 MG PO SCH (17:39)
[2019-03-14] MEDS ORDERED: Metoprolol Succinate XL TAB* 25 MG PO SCH (18:00)
--- NOTE | 2019-03-14 18:30 | PN ---
Hospitalist Progress Note Date of Service: 03/14/19 HOSPITALIST ADDENDUM Mr Lundberg is an 88yo M with PMH of CAD, CVA, CKD, Parkinson's disease/dementia , who presented to ED with recurrent N/V. Plan for EGD today - case d/w Dr Quiles.
[2019-03-14] MEDS: Pantoprazole TAB * 40 MG TAB PO SCH (20:08)
[2019-03-14] MEDS ORDERED: Memantine TAB* 10 MG PO SCH (21:00)
[2019-03-15 07:01] LABS: ABS Eosinophils 0.5 10^3/ul (0-0.6); ABS Lymphocytes 0.7 10^3/ul (1.0-4.8); ABS Monocytes 0.3 10^3/ul (0-0.8); ABS Neutrophils 5.5 10^3/ul (1.5-7.7); Eosinophil % 6.6 %; Hematocrit 32 % (42-52); Hemoglobin 11.4 g/dL (14.0-18.0); Lymphocyte % 10.2 %; Mean Corpuscular HGB Conc 35 g/dL (31-36); Mean Corpuscular Hemoglobin 33 pg (27-31); Mean Corpuscular Volume 92 fL (80-94); Mean Platelet Volume 7.7 fL (7.4-10.4); Platelet Count 151 10^3/uL (150-450); Red Blood Count 3.49 10^6 /uL (4.18-5.48); Red Cell Distribution Width 14 % (10-15); White Blood Count 7.1 10^3/uL (3.5-10.8)
[2019-03-15 07:16] LABS: Calcium 8.6 mg/dL (8.6-10.3); Potassium 4.4 mmol/L (3.5-5.0)
[2019-03-15 07:22] LABS: BUN/Creatinine Ratio 14.8 (8-20); EGFR African American 57.2 (>60); EGFR Non-African American 47.3 (>60)
[2019-03-15] MEDS: cefTRIAXone(*) 1 GM in NS 0.9% 50 ML* 50 ML IVPB SCH (08:25)
[2019-03-15] MEDS: NS 0.9% 1000 ML** 1,000 ML IV SCH (08:26)
[2019-03-15] MEDS: Finasteride TAB* 5 MG PO SCH (08:27)
[2019-03-15] MEDS: Pantoprazole TAB * 40 MG TAB PO SCH ×2 (08:27→20:20)
[2019-03-15] MEDS ORDERED: Atorvastatin* 10 MG TAB PO SCH (09:00)
--- NOTE | 2019-03-15 09:34 | PRO ---
DATE OF PROCEDURE: 03/14/19 - ROOM #404 REFERRING PHYSICIAN: Dr. Patel. PROCEDURE: EGD. INDICATION: Dysphagia. MEDICATIONS GIVEN: 25 mcg IV fentanyl, 3 mg IV Versed. DESCRIPTION OF PROCEDURE: After the EGD procedure including the risks, benefits , and alternatives not limited to perforation, surgery, and/or were explained to the patient and his , written consent was obtained from the patient's due to the patient's underlying dementia. An Olympus gastroscope was then inserted into the patient's mouth, advanced down the esophagus, into the stomach, into the distal duodenum. In the esophagus, no obstruction was seen. He did have in the mid body of the esophagus, some petechiae, potentially consistent with a previous foreign body obstruction versus erosive esophagitis. As I advanced the scope distally to the GE junction , he definitely had very long linear ulcers consistent with grade C erosive esophagitis. There was no stricture or ring. No masses were seen. No obstruction was seen. The scope was advanced through the GE junction into the body of the stomach. Retroflexion view was unremarkable. Forward view also was unremarkable. A biopsy was obtained for H. pylori. The scope was advanced through a widely patent pylorus, into the duodenal bulb. This was unremarkable. Scope was then withdrawn from the patient. He tolerated the procedure well and was returned to his hospital room in stable condition. IMPRESSION: 1. Complete upper endoscopy into the duodenum with biopsies. 2. Biopsy for Helicobacter pylori. 3. Grade C erosive esophagitis. I did talk to the patient's afterwards. She does not remember him complaining of any heartburn-type symptoms; however, he is fairly demented. I do wonder if the erosive esophagitis is contributing to his dysphagia symptoms. I would like him to start on a PPI twice a day for 4 weeks and then he can drop down to once a day. I will follow up on the biopsies. [id number]/[facility] #: [id number] [facility]
--- NOTE | 2019-03-15 12:12 | PN ---
Subjective Date of Service: 03/15/19 Interval History: HOSPITALIST PROGRESS NOTE Patient seen and examined at bedside. Care reviewed and d/w Tanya Keys RN. Pleasantly confused, offers no complaints. As per RN, tolerated full liquids well. Family History: Unchanged from Admission Social History: Unchanged from Admission Past Medical History: Unchanged from Admission Objective Active Medications: Atorvastatin Calcium (Lipitor*) 10 mg PO QPM [facility] Last Admin: 03/14/19 17:37 Dose: 10 mg Finasteride (Proscar Tab*) 5 mg PO DAILY [facility] Last Admin: 03/15/19 08:27 Dose: 5 mg Hydralazine HCl (Apresoline Tab*) 25 mg PO QAM PRN PRN Reason: SBP>160 Ceftriaxone Sodium 1 gm/ (Sodium Chloride) 50 mls @ 100 mls/hr IVPB Q24H [facility] Last Admin: 03/15/19 08:25 Dose: 100 mls/hr Memantine (Namenda Tab*) 5 mg PO QPM [facility] Last Admin: 03/14/19 17:37 Dose: 5 mg Metoprolol Succinate (Toprol Xl Tab*) 25 mg PO QPM [facility] Last Admin: 03/14/19 17:39 Dose: 25 mg Pantoprazole Sodium (Protonix Tab*) 40 mg PO BID [facility] Last Admin: 03/15/19 08:27 Dose: 40 mg Vital Signs - 8 hr 03/15/19 03/15/19 06:32 08:00 Temperature 97.8 F Pulse Rate 75 Respiratory 19 18 Rate Blood Pressure 159/71 (mmHg) O2 Sat by Pulse 99 Oximetry Oxygen Devices in Use Now: None Appearance: Elderly gentleman, pleasantly confused, sitting up in bed in NAD. Eyes: No Scleral Icterus Ears/Nose/Mouth/Throat: Mucous Membranes Moist Neck: Trachea Midline Respiratory: Symmetrical Chest Expansion and Respiratory Effort, Clear to Auscultation Cardiovascular: RRR - Normal S1 and S2 Abdominal: NL Sounds; No Tenderness; No Distention Neurological: - - AAOx1 (self only) Result Diagrams: 03/15/19 06:44 03/15/19 06:44 Assess/Plan/Problems-Billing Assessment: Mr Lundberg is an 88yo M with PMH of CAD, CVA, CKD, Parkinson's disease/dementia , who presented to ED with recurrent N/V, found to have erosive esophagitis. - Patient Problems (1) Erosive esophagitis Comment: - EGD showed grade C erosive esophagitis. - GI input appreciated - plan for PPI BID for 4 weeks, then once a day. - No complaints today, tolerating full liquid diet. Will advance to soft diet as tolerated. (2) KARTIK (acute kidney injury) Comment: - KARTIK likely pre renal in the setting of recurrent N/V. - Improving. - Good fluid PO intake - will d/c IVF. (3) Abnormal urinalysis Comment: - Urine culture growing polymicrobial shavonne - suspect colonization and not UTI. - D/c Ceftriaxone. (4) Coronary arteriosclerosis after coronary artery bypass grafting Comment: - CAD is stable. - Resume Aspirin, continue metoprolol and statin. (5) DVT prophylaxis Comment: - SQ heparin. (6) DNR (do not resuscitate) Status and Disposition: updated at bedside. Anticipate d/c in AM if he continues to tolerate diet advance.
--- NOTE | 2019-03-15 13:27 | CONS ---
CC: Dr. Porter * CONSULTATION REPORT: DATE OF CONSULT: 03/14/19 REQUESTING PHYSICIAN: The emergency room. REFERRING PHYSICIAN: Dr. Porter. INDICATION: Dysphagia. NARRATIVE: Mr. Lundberg is a very pleasant 88-year-old gentleman who has fairly significant dementia, all of the history is obtained from his . He does have a history of severe coronary artery disease, did undergo bypass approximately 12 years ago. He has also history of cerebrovascular disease, status post stroke. The patient presented to the emergency room with vomiting. According to his , he has been having difficulties with dysphagia over the past few months, things often times seem to get stuck; however, on Thursday he was eating some chicken and he began to vomit after the chicken. He went to bed that night, Thursday morning he did get up and had oatmeal and was able to swallow that without any difficulties; however, overnight on Thursday, his symptoms of vomiting began again and he was brought to the emergency room. His denies any significant heartburn symptoms. No unintentional weight loss. He did have an upper GI series in 2011 for dysphagia that was unremarkable. No family history of esophageal cancer. PAST MEDICAL HISTORY: Please see the HPI. Additionally, he has BPH, Parkinson' s. PAST SURGICAL HISTORY: Surgeries include: 1. Hip replacement. 2. Knee replacement. 3. Appendectomy. 4. Tonsillectomy. 5. Pacemaker. 6. Carpal tunnel. MEDICATIONS AT HOME: Include: 1. Aspirin. 2. Finasteride. 3. Metoprolol. 4. Lipitor. ALLERGIES: NIACIN. FAMILY HISTORY: No upper GI malignancies in the family. SOCIAL HISTORY: No tobacco, alcohol, or IV drugs. REVIEW OF SYSTEMS: Twelve systems were reviewed, other than that mentioned in the HPI were unremarkable. PHYSICAL EXAM: On physical exam, temperature is 98.1, blood pressure is 162/64 , pulse of 72, respiratory rate 16, O2 sat is 100%. General: Well-appearing male, no apparent distress, alert, not oriented, pleasant, fluent. HEENT: Mucous membranes are moist without lesions, ulcers, or exudate. Neck is supple. Trachea is midline. Head is normocephalic, atraumatic. Heart: Regular rate and rhythm. Lungs: Clear to auscultation. Abdomen: Positive bowel sounds. Soft, nontender, nondistended. No hepatosplenomegaly, masses, rebound, or guarding. Skin is warm and dry. DIAGNOSTIC STUDIES/LAB DATA: Labs of note, white count is 11.7, hemoglobin is 11.6, platelets of 159. BUN is 25, creatinine is 1.57. He does have a chest, abdomen and pelvis CT from 1 a.m., which reveals right inguinal hernia. Otherwise, negative CT of abdomen. Chest shows sternotomy, negative chest CT. ASSESSMENT AND PLAN: This is a pleasant 88-year-old gentleman with fairly significant dementia, who presents with vomiting and potentially dysphagia. Of note, he did just complete a speech and swallowing evaluation and did seem to pass that and is cleared to swallow thickened liquids with regular consistency food. Given his history of dysphagia, I would like to perform an upper endoscopy. This was discussed in detail with the patient's and I will make arrangements for his EGD a little bit later on today. She is understanding and agreeable. [id number]/[facility] #: [id number] MTDLeigh
[2019-03-15] MEDS: Memantine TAB* 10 MG PO SCH (16:55)
[2019-03-15] MEDS: Atorvastatin* 10 MG TAB PO SCH (16:55)
[2019-03-15] MEDS: Metoprolol Succinate XL TAB* 25 MG PO SCH (16:55)
[2019-03-15] MEDS ORDERED: Aspirin EC TAB* 81 MG TAB.EC PO SCH (18:00)
[2019-03-16] MEDS: hydrALAZINE TAB* 25 MG PO PRN ×2 (04:50→08:40)
[2019-03-16] MEDS: Pantoprazole TAB * 40 MG TAB PO SCH (10:32)
[2019-03-16] MEDS: Finasteride TAB* 5 MG PO SCH (10:32)
[2019-03-16 11:50] VITALS: BP 146/60
--- NOTE | 2019-03-16 21:20 | DS ---
CC: Dr. Porter; Dr. Quiles * DISCHARGE SUMMARY: DATE OF ADMISSION: 03/14/19 DATE OF DISCHARGE: 03/16/19 PRIMARY CARE PROVIDER: Dr. Porter. CONSULTING HOSPITALITY DIRECTOR: Dr. Quiles. DISCHARGE DIAGNOSES: 1. Recurrent nausea and vomiting secondary to grade C erosive esophagitis. 2. Dehydration. 3. Acute kidney injury, prerenal, secondary to the above. 4. Abnormal urinalysis with urine colonization. SECONDARY DIAGNOSES: 1. Coronary artery disease, status post CABG. 2. Cerebrovascular accident. 3. Chronic kidney disease, stage 3. 4. 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 5. Parkinson disease. 6. Dementia. MEDICATION LIST: 1. Aspirin 81 mg p.o. daily. 2. Atorvastatin 10 mg p.o. at bedtime. 3. Calcium with vitamin B12 and folic acid 1 tablet p.o. daily. 4. Finasteride 5 mg p.o. daily. 5. Hydralazine 25 mg p.o. in the morning as needed for systolic blood pressure greater than 160. 6. Memantine 5 mg p.o. at bedtime. 7. Metoprolol succinate 25 mg p.o. at bedtime. 8. Multivitamin 1 tablet p.o. daily. 9. CoQ10 200 mg p.o. at bedtime. 10. Vitamin B 150 mg p.o. daily. New medication: 1. Pantoprazole 40 mg p.o. b.i.d. for a month, then 40 mg p.o. daily. HOSPITAL COURSE: Mr. Lundberg is an 88-year-old male with a past medical history as stated above, who presented to the emergency room with recurrent nausea and vomiting and inability to keep any p.o. intake down. For more details about his presentation, I refer you to his history and physical. The patient was admitted to the medical floor, and he was seen in consultation by Gastroenterology (Dr. Quiles) who recommended upper endoscopy. The procedure revealed grade C erosive esophagitis. He felt that due to the patient 's dementia, he did not complain of any heartburn-type symptoms and he thought that the esophagitis would be contributing to his dysphagia symptoms. His recommendation was for PPI twice a day for 4 weeks and then drop down to once a day. CLOtest was performed and it was negative. The patient was seen by Speech Therapy and he did well. He was deemed safe for a regular diet and thin liquids with straw. The patient was able to tolerate diet well, had no further vomiting while in the hospital. The patient had an abnormal urinalysis in the emergency room and his urine culture grew enterococcus, klebsiella, and pseudomonas. I believe that this represents colonization in the setting of chronic Stevens and not true infection. The patient had improvement of his symptoms and he was felt to be stable to be discharged home today. His was present and in agreement. All her questions were answered. PHYSICAL EXAMINATION: Vital Signs: Temperature 98.0, heart rate is 73, respiratory rate is 20, oxygen saturation is 100% on room air, blood pressure is 146/60. General: The patient is a pleasantly confused elderly gentleman, sitting up in bed, in no acute distress. CVS: Normal S1, S2. Regular rate and rhythm. Chest: Breath sounds present bilaterally with no added sounds. Abdomen is soft, nontender. Bowel sounds are present. Extremities: No edema. Neuro: He is alert, awake, and oriented to self only. Able to move all 4 extremities. DIET: Regular diet. ACTIVITIES: As tolerated. DISPOSITION: To home. STATUS WHILE IN THE HOSPITAL: Inpatient. Please keep in mind that this is a summarized version of this patient's hospital stay. If you need more information, please feel free to call me at or please obtain full medical records. TIME SPENT: Approximately 45 minutes was spent to complete this discharge. [id number]/CPS #: [id number] [facility]
== END 2019-03-16 13:35 | disposition home health service (06) | DRG 381 ==
LOC: ED 21:03 → MED 03-14 06:52
PROVIDERS: ADMIT Internal Medicine; ATTEND Internal Medicine
PROC: 0DB68ZX Excision of Stomach, Via Natural or Artificial Opening Endoscopic, Diagnostic (ICD-10-PCS; principal; 2019-03-15)
DX: K22.10 Ulcer of esophagus without bleeding (principal); E87.1 Hypo-osmolality and hyponatremia; N17.9 Acute kidney failure, unspecified; I48.91 Unspecified atrial fibrillation; I25.10 Atherosclerotic heart disease of native coronary artery without angina pectoris; G20 Parkinson's disease; F02.80 Dementia in other diseases classified elsewhere, unspecified severity, without behavioral disturbance, psychotic disturbance, mood disturbance, and anxiety; I12.9 Hypertensive chronic kidney disease with stage 1 through stage 4 chronic kidney disease, or unspecified chronic kidney disease; E78.5 Hyperlipidemia, unspecified; N40.1 Benign prostatic hyperplasia with lower urinary tract symptoms; Z96.642 Presence of left artificial hip joint; Z96.651 Presence of right artificial knee joint; Z66 Do not resuscitate; K21.9 Gastro-esophageal reflux disease without esophagitis; E78.00 Pure hypercholesterolemia, unspecified; G43.909 Migraine, unspecified, not intractable, without status migrainosus; E86.0 Dehydration; N18.3 Chronic kidney disease, stage 3 (moderate); R33.9 Retention of urine, unspecified; I69.398 Other sequelae of cerebral infarction; Z85.820 Personal history of malignant melanoma of skin; Z95.0 Presence of cardiac pacemaker; Z88.8 Allergy status to other drugs, medicaments and biological substances; I25.2 Old myocardial infarction; Z95.1 Presence of aortocoronary bypass graft; Z98.41 Cataract extraction status, right eye; Z98.42 Cataract extraction status, left eye; Z72.89 Other problems related to lifestyle; Z22.8 Carrier of other infectious diseases; Z79.82 Long term (current) use of aspirin
CPT/HCPCS: 36415; 71046; 71260; 74177; 80048; 80053; 81003; 81015; 83690; 85025; 86140; 87077; 87086; 87186; 96375; 99156; 99284; A9270-GY; J0696; J2250; J2405; J3010; Q9967

== ENCOUNTER 2019-04-06 10:11 | Emergency (ER) | payer MEDICARE, BC ==
--- OUTSIDE RECORDS SUMMARY | 2019-04-06 10:18 | XMS REPORT | Continuity of Care Document ---
:1930 External Reference #:[id number] Author Name Tracy Gordon N.P. (transmitted by agent of provider Betina Razo) Address [address] 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 Onset: 02/05/2016 outflow obstruction Minimal cognitive impairment Susan Porter M.D. Onset: 02/17/2017 Atherosclerotic heart disease of [place] Susan Porter M.D. Onset: 2016 coronary artery [...] Use Denies Drug Use Smoking Status Reviewed: 04/01/19 Patient has never smoked Exercise Type/Frequency Exercises sporadically goes to gym once weekly Exercise Type/Frequency Does not exercise Exercise Type/Frequency unable to go to the gym Allergies, Adverse Reactions, Alerts Active Allergies Reaction Severity Comments Date Niaspan flushing 05/09/2005 Inactive Allergies NKDA 10/25/2003 Medications Active Medications SIG Qnty Indications Ordering Provider Date Pantoprazole Sodium Twice Daily 60tabs Unknown 03/16/[address] Hydralazine HCL Every Morning Unknown 03/14/2019 25mg Tablets Finasteride Every Day Unknown 04/16/2018 5mg Tablets Metoprolol Succinate Every Evening Unknown 04/16/2018 ER 25mg Tablets ER 24HR Co-Enzyme Q10 1 tablet by [...] 1 by mouth every Unknown day Tablets History Medications Memantine HCL Every Evening Unknown 03/13/2019 - 10mg 03/22/2019 Tablets Memantine HCL 1 tab by mouth 30tabs R5 Gigi Isaac, 02/21/2019 - 5mg daily N.P. 03/31/2019 Tablets Memantine HCL 1 by mouth twice 60tabs R55 Gigi Isaac, 01/03/2019 - 5mg a day N.P. 01/26/2019 Tablets Memantine HCL take 1/2 pill 60tabs R55 Danny Gonzalez, 11/26/2018 - 10mg twice a day M.DRonaldo 01/03/2019 Tablets Medications Administered in Office Medication SIG Qnty Indications Ordering Provider Date BERNADINE Porter M.D. 12/20/2018 Injection Immunizations CPT Code Status Date Vaccine Reaction Lot # [id number] Given 04/19/2018 Fluzone High Dose No immediate reaction [id number] noted. 46711 Given 02/17/2017 Influenza Virus Vaccine, [id number] Quadrivalent, Split, Preservative Free 05278 Given 02/12/2016 Fluzone High Dose 00908 Given 02/01/2015 Pneumococcal Conjugate [id number] Vaccine 13 Valent For Intramuscular Use 29637 Given 06/08/2014 Zoster (Zostavax) Q2037 Given 02/13/2014 Fluvirin Im 3Yrs And Older 90981 Given 02/04/2013 Influenza Virus 3Yrs & Over 38148 Given 04/05/2012 Tdap - [id number] Tetanus/Diptheria/Acellular Pertussis Q2038 Given 03/19/2012 Fluzone Vaccine Q2038 Given 02/17/2011 Fluzone Vaccine 85434 Given 10/16/1997 Pneumovax (History By Patient) 91402 Given 07/18/1996 Td (History By Patient) Vital Signs Date Vital Result Comment 04/01/2019 9:00am Height 68 inches 5'8" Weight 139.50 lb with shoes Heart Rate 70 /min BP Systolic Sitting 138 mmHg Rue reg cuff BP Diastolic Sitting 80 mmHg Rue reg cuff Respiratory Rate 13 /min BMI (Body Mass Index) 21.2 kg/m2 Ejection Fraction 50-55% ECHO 04/16/2018 03/23/2019 4:14pm Height 68 inches 5'8" Weight 140.00 lb Heart Rate 70 /min BP Systolic 169 mmHg BP Diastolic 83 mmHg Body Temperature 96.9 F O2 % BldC Oximetry 98 % BMI (Body Mass Index) 21.3 kg/m2 Results Test Date Facility Test Result H/L Range Note Basic Metabolic 03/31/2019 [facility] Sodium 133 mmol/L Low 135-[address] [place] [address] [phone] Potassium 5.0 mmol/L Normal 3.5-5.0 Chloride 98 mmol/L Low 101-111 Co2 Carbon Dioxide 29 mmol/L Normal 22-32 Anion Gap 6 mmol/L Normal 2-11 Glucose 82 mg/dL Normal 70-100 Blood Urea Nitrogen 28 mg/dL High 6-24 Creatinine 1.99 mg/dL High 0.67-1.17 BUN/Creatinine Ratio 14.1 Normal 8-20 Calcium 9.0 mg/dL Normal 8.6-10.3 Egfr Non- 32.0 >60 Egfr 38.7 >60 1 CBC Auto 03/14/2019 [facility] White Blood 11.7 10^3/uL High 3.5-10.[address] [place] [address] [phone] Red Blood Count 3.62 10^6/uL Low 4.18-5.48 Hemoglobin 11.6 g/dL Low 14.0-18.0 Hematocrit 33 % Low 42-52 Mean Corpuscular Volume 92 fL Normal 80-94 Mean Corpuscular Hemoglobin 32 pg High 27-31 Mean Corpuscular HGB Conc 35 g/dL Normal 31-36 Red Cell Distribution Width 13 % Normal 10-15 Platelet Count 159 10^3/uL Normal 150-450 Mean Platelet Volume 7.3 fL Low 7.4-10.4 Abs Neutrophils 10.7 10^3/uL High 1.5-7.7 Abs Lymphocytes 0.6 10^3/uL Low 1.0-4.8 Abs Monocytes 0.4 10^3/uL Normal 0-0.8 Abs Eosinophils 0.0 10^3/uL Normal 0-0.6 Abs Basophils 0.0 10^3/uL Normal 0-0.2 Abs Nucleated RBC 0.0 10^3/uL Granulocyte % 91.6 % Lymphocyte % 4.7 % Monocyte % 3.3 % Eosinophil % 0.1 % Basophil % 0.3 % Nucleated Red Blood Cells % 0.0 Basic Metabolic 03/14/2019 [facility] Sodium 128 mmol/L Low 135-145 Panel [address] [place] [address] [phone] Potassium 4.3 mmol/L Normal 3.5-5.0 Chloride 96 mmol/L Low 101-111 Co2 Carbon Dioxide 26 mmol/L Normal 22-32 Anion Gap 6 mmol/L Normal 2-11 Calcium 8.8 mg/dL Normal 8.6-10.3 Glucose 111 mg/dL High 70-100 Blood Urea Nitrogen 25 mg/dL High 6-24 Creatinine 1.57 mg/dL High 0.67-1.17 BUN/Creatinine Ratio 15.9 Normal 8-20 Egfr Non- 42.1 >60 Egfr 50.9 >60 2 Comp Metabolic Panel 03/13/2019 [facility] Sodium 126 mmol/L Low 135-145 [address] [place] [address] [phone] Potassium 4.1 mmol/L Normal 3.5-5.0 Chloride 92 mmol/L Low 101-111 Co2 Carbon Dioxide 27 mmol/L Normal 22-32 Anion Gap 7 mmol/L Normal 2-11 Glucose 163 mg/dL High 70-100 Blood Urea Nitrogen 27 mg/dL High 6-24 Creatinine 1.78 mg/dL High 0.67-1.17 BUN/Creatinine Ratio 15.2 Normal 8-20 Calcium 9.6 mg/dL Normal 8.6-10.3 Total Protein 6.5 g/dL Normal 6.4-8.9 Albumin 4.1 g/dL Normal 3.2-5.2 Globulin 2.4 g/dL Normal 2-4 Albumin/Globulin Ratio 1.7 Normal 1-3 Total Bilirubin 1.10 mg/dL High 0.2-1.0 Alkaline Phosphatase 64 U/L Normal 34-104 Alt 11 U/L Normal 7-52 Ast 18 U/L Normal 13-39 Egfr Non- 36.4 >60 Egfr 44.1 >60 3 Laboratory test 03/13/2019 [facility] Lipase 26 U/L Normal 11.0-82.[address] [place] [address] [phone] C Reactive Protein 54.64 mg/L High <8.01 CBC Auto 03/13/2019 [facility] White Blood 12.9 10^3/uL High 3.5-10.[address] [place] [address] [phone] Red Blood Count 4.07 10^6/uL Low 4.18-5.48 Hemoglobin 12.9 g/dL Low 14.0-18.0 Hematocrit 38 % Low 42-52 Mean Corpuscular Volume 93 fL Normal 80-94 Mean Corpuscular Hemoglobin 32 pg High 27-31 Mean Corpuscular HGB Conc 34 g/dL Normal 31-36 Red Cell Distribution Width 13 % Normal 10-15 Platelet Count 182 10^3/uL Normal 150-450 Mean Platelet Volume 7.3 fL Low 7.4-10.4 Abs Neutrophils 12.2 10^3/uL High 1.5-7.7 Abs Lymphocytes 0.2 10^3/uL Low 1.0-4.8 Abs Monocytes 0.5 10^3/uL Normal 0-0.8 Abs Eosinophils 0.0 10^3/uL Normal 0-0.6 Abs Basophils 0.0 10^3/uL Normal 0-0.2 Abs Nucleated RBC 0.0 10^3/uL Granulocyte % 94.1 % Lymphocyte % 1.9 % Monocyte % 3.8 % Eosinophil % 0.0 % Basophil % 0.2 % Nucleated Red Blood Cells % 0.0 Urinalysis Profile 03/13/2019 [facility] Urine Color Yellow [address] [place] [address] [phone] Urine Appearance Cloudy Urine Specific [place] 1.032 High 1.010-1.030 Urine pH 7.0 Normal 5-9 Urine Urobilinogen Negative Negative Urine Ketones Negative Negative Urine Protein 2+(100 mg/dL) Abnormal Negative Urine Leukocytes 2+ Abnormal Negative Urine Blood 2+ Abnormal Negative Urine Nitrite Negative Negative Urine Bilirubin Negative Negative Urine Glucose Negative Negative Urine White Blood Cell Trace(0-5/hpf) Absent Urine Red Blood Cell 2+(6-10/hpf) Abnormal Absent Urine Bacteria 1+ Abnormal Absent Urine Culture And 03/13/2019 [facility] Urine Culture SEE RESULT [address] [place] [address] [phone] Comp Metabolic 01/31/2019 [facility] Sodium 128 mmol/L Low 135 -[address] [place] [address] [phone] Potassium 4.8 mmol/L Normal 3.5-5.0 Chloride 95 [...] Egfr Non- 43.7 >60 Egfr 52.9 >60 5 CBC Auto 01/31/2019 [facility] White Blood 7.2 10^3/uL Normal 3.5-10.[address] [place] [address] [phone] Red Blood Count 3.91 10^6/uL Low 4.18-5.48 [...] % Nucleated Red Blood Cells % 0.0 CBC Auto 01/27/2019 [facility] White Blood 6.8 10^3/uL Normal 3.5-10.[address] [place] [address] [phone] Red Blood Count 3.84 10^6/uL Low 4.18-5.48 [...] Cells % 0.0 Comp Metabolic Panel 01/27/2019 [facility] Sodium 129 mmol/L Low 135-[address] [place] [address] [phone] Potassium 5.2 mmol/L High 3.5-5.0 Chloride 96 [...] Egfr Non- 35.7 >60 Egfr 43.2 >60 6 Urinalysis Profile 01/27/2019 [facility] Urine Color Ay[place] [address] [place] [address] [phone] Urine Appearance Turbid Urine Specific [place] 1.016 Normal 1.010-1.030 Urine pH 8.0 Normal 5-9 Urine Urobilinogen Negative Negative Urine Ketones Negative Negative Urine Protein 3+(>=500 mg/dL) Abnormal Negative Urine Leukocytes 1+ Abnormal Negative Urine Blood Negative Negative * * Abnormal Negative 7 Urine Nitrite Negative Negative Urine Bilirubin Negative Negative Urine Glucose Negative Negative Urine White Blood Cell 2+(11-20/hpf) Abnormal Absent Urine Red Blood Cell Trace(0-2/hpf) Absent Urine Bacteria 1+ Abnormal Absent Urine Triple Phosphate Cryst Present Abnormal Absent Urine Culture And 01/27/2019 [facility] Urine SEE RESULT [address] [place] [address] [phone] Vitamin B12 And 01/27/2019 [facility] Vitamin B12 645 pg/mL Normal 180-9 9 Folate Serum [address] [place] [address] [phone] Folic Acid (Folate) > 20.00 ng/mL >3.99 Laboratory test 01/27/2019 [facility] Erythrocyte Sed 8 mm/Hr Normal 0-[address] [place] [address] [phone] C Reactive Protein 1.49 mg/L Normal <8.01 Lipid Panel - 01/14/2019 [facility] Creatine 42 U/L Normal 10- 223 [address] Kinase(CK) [place] [address] [phone] Comp Metabolic 01/14/2019 [facility] Sodium 133 Low 135-[address] mmol/[place] [address] [phone] Chloride 98 mmol/L Low 101-111 Co2 Carbon [...] Egfr Non- 40.9 >60 Egfr 49.5 >60 11 Potassium 5.2 mmol/L High 3.5-5.0 Anion Gap 7 mmol/L Normal 2-11 Lipid Profile 01/14/2019 [facility] Triglycerides 99 mg/dL 12 (Trig/Chol/HDL) [address] [place] [address] [phone] Cholesterol 167 mg/dL 13 HDL Cholesterol 49.6 mg/dL 14 LDL Cholesterol 98 mg/dL 15 CBC Auto 01/14/2019 [facility] White Blood 6.0 10^3/uL Normal 3.5-10.[address] [place] [address] [phone] Red Blood Count 4.22 10^6/uL Normal 4.18-5.48 [...] 5 Kidney failure <15 (or dialysis) 3 Because ethnic data is not always readily [...] 15-29 5 Kidney failure <15 (or dialysis) 4 SEE RESULT BELOW Name: BRAD TAVAREZ : [address]: Akosua Ly MD Acct: [id number] Unit: [id number] AGE: 88 Location: [place] [address] Re03/14/19 SEX: M Status: ADM IN SPEC: [id number] TOREY: 03/14/19 [facility] DR: Evaristo TRIVEDI REQ: [id number] RECD: 03/14/19 STATUS: MADYSON CHAKRAOBRTY DR: [facility] Susan Porter III, MD _ SOURCE: URINE SPDESC: ORDERED: Urine Culture Procedure Result Reported Site Urine Culture Final 03/16/19- 0945 ML Organism 1 ENTEROCOCCUS FAECALIS [place] Count 75-100,000 (Many) CFU/ML Organism 2 KLEBSIELLA OXYTOCA [place] Count 50-75,000 (Many) CFU/ML Organism 3 PSEUDOMONAS AERUGINOSA [place] Count 10-25,000 (Moderate) CFU/ML 1. ENTEROCOCCUS FAECALIS M.I.C. RX --------- ------ Ampicillin <=2 S Penicillin 2 S Ciprofloxacin <=0.5 S Gentamicin High Level S Levofloxacin 1 S Linezolid 2 S Nitrofurantoin <=16 S * Quinupristin/Dalfopristin R * Streptomycin High Level S Tetracycline >=16 R Tigecycline <=0.12 S Vancomycin 1 S Imipenem-Deduced S * Ampicillin/Sulbactam-Deduced S 2. KLEBSIELLA OXYTOCA [facility].I.C. RX --------- ------ Ampicillin >=32 R Cefazolin 8 S Cefepime <=1 S Ceftriaxone <=1 S Ciprofloxacin <=0.25 S Gentamicin <=1 S CONTINUED ON NEXT PAGE DEPARTMENT OF PATHOLOGY, [address] [place] [address] Dash Beltre M.D. Director [facility] # [id number] Specimen: [id number] Collected: 03/14/19 Received: 03/14/19 (Continued) Procedure Result Reported Site Urine Culture Final (continued) 03/16/19944 2. KLEBSIELLA OXYTOCA (continued) M.I.C. RX --------- ------ Levofloxacin <=0.12 S Meropenem <=0.25 S Nitrofurantoin <=16 S Tetracycline <=1 S Pipercillin/Tazobactam <=4 S Trimethoprim/Sulfamethoxazole <=20 S Amoxicillin/Clavulanic Acid 4 S Aztreonam <=1 S 3. PSEUDOMONAS AERUGINOSA [facility].I.[facility]. RX --------- ------ Cefazolin >=64 R Cefepime <=1 S Ciprofloxacin <=0.25 S Gentamicin <=1 S Levofloxacin 0.25 S Meropenem <=0.25 S Pipercillin/Tazobactam <=4 S * These antibiotics are not available in the [facility] Formulary Contact the Microbiology Department for any additional antibiotic reporting. Contact the Microbiology Department for any additional antibiotic reporting. * ML - Main Lab . END OF REPORT DEPARTMENT OF PATHOLOGY, [address] [place] [address] Dash Beltre M.D. Director [facility] # [id number] 5 Because ethnic data is not always readily [...] 15-29 5 Kidney failure <15 (or dialysis) 6 Because ethnic data is not always readily [...] 15-29 5 Kidney failure <15 (or dialysis) 7 *Ascorbic acid is present which may interfere with detection of blood. 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 [employer] Acct: [id number] Unit: [id number] AGE: 88 Location: [facility] Re01/27/19 SEX: M Status: REG REF SPEC: [id number] TOREY: 01/27/19 [facility] DR: Gopi Isaac TERRITORY MANAGER [employer] REQ: [id number] RECD: 01/27/19 STATUS: MADYSON CHAKRABORTY DR: Susan Porter III, MD _ SOURCE: URINE SPDESC: ORDERED: Urine Culture Urine Source: Catheterization Procedure Result Reported Site Urine Culture Final 01/30/19- 1018 ML Organism 1 KLEBSIELLA OXYTOCA [place] Count >100,000 (Many) CFU/ML Organism 2 PSEUDOMONAS AERUGINOSA [place] Count >100,000 (Many) CFU/ML 1. KLEBSIELLA OXYTOCA M.I.C. RX --------- ------ Ampicillin >=32 R Cefazolin 16 I Cefepime <=1 S Ceftriaxone <=1 S Ciprofloxacin <=0.25 S Gentamicin <=1 S Levofloxacin <=0.12 S Meropenem <=0.25 S Nitrofurantoin 32 S Tetracycline <=1 S Pipercillin/Tazobactam <=4 S Trimethoprim/Sulfamethoxazole <=20 S Amoxicillin/Clavulanic Acid 4 S Aztreonam <=1 S CONTINUED ON NEXT PAGE DEPARTMENT OF PATHOLOGY, [address] [place] [address] Dash Beltre M.D. Director [facility] # [id number] Patient: BRAD TAVAREZ [id number] (Continued) Specimen: [id number] Collected: 01/27/19-1537 Received: 01/27/19 (Continued) Procedure Result Reported Site Urine Culture Final (continued) 01/30/191017 2. PSEUDOMONAS AERUGINOSA [facility].I.C. RX --------- ------ Cefazolin >=64 R Cefepime <=1 S Ciprofloxacin <=0.25 S Gentamicin <=1 S Levofloxacin 0.25 S Meropenem <=0.25 S Pipercillin/Tazobactam <=4 S Contact the Microbiology Department for any additional antibiotic reporting. * ML - Main Lab . END OF REPORT DEPARTMENT OF PATHOLOGY, [address] [place] [address] Dash Beltre M.D. Director [facility] # [id number] Normal Range 180 to 914 Indeterminate Range 145 to 180 Deficient Range <145 10 FASTING Copy Result to: SUSAN PORTER ([id number]) 11 Because ethnic data is not always readily [...] 15-29 5 Kidney failure <15 (or dialysis) 12 Desirable: <150 Borderline High: 150-199 High: 200-499 Very High: >500 13 Desirable: <200 Borderline High: 200-239 High: >239 14 Low: <40 Desirable: 40-60 High: >60 15 Desirable: <100 Near Optimal: 100-129 Borderline High: 130-159 High: 160-189 Very High: >189 Procedures Date Code Description Status 03/22/2019 98398 Pace Maker Eval W/Iterative Adjment Dual Lead Completed 03/22/2019 61285 Pace Maker Eval W/Iterative Adjment Dual Lead Completed 02/24/2019 56051 Polysomnography Sleep Staging 4+ Parameters Completed 02/15/2019 07227 EKG Tracing & Interpretation Completed 02/14/2019 52263 Repair Immediate Wound < 2.6CM Completed Face/Ear/Eyelid/Nose/Lip/Muc Mem 02/14/2019 27944 Excise Malig Lesion 1.1-2CM Face/Ear/Eyelid/Nose/Lip Completed 10/01/2018 40046 Pace Maker Eval W/Iterative Adjment Dual Lead Completed 10/01/2018 83262 Pace Maker Eval W/Iterative Adjment Dual Lead Completed 06/16/2012 [id number] Colonoscopy Completed 06/19/2011 [id number] Bone Mineral Density Test Completed 08/02/1996 94727059 Colonoscopy Completed Medical Devices Description No Information Available Encounters Type Date Location Provider Dx Diagnosis Office Visit 03/16/2019 [facility] Akosua Hernandez, N17.9 Acute kidney 9:10a Assockurtis M.D. failure, Hospitalists unspecified R11.2 Nausea with vomiting, unspecified E86.0 Dehydration K20.8 Other esophagitis R82.90 Unspecified abnormal findings in urine Office Visit 03/15/2019 9:09a [facility] Akosua N17.9 Acute kidney Assoc,kurtis Hernandez M.D. failure, Hospitalists unspecified K20.8 Other esophagitis I25.10 Athscl heart disease of [place] coronary artery w/o ang pctrs R82.90 Unspecified abnormal findings in urine Office Visit 03/14/2019 [facility] Desiree E87.1 Hypo-osmolality and 9:09a Assoc,kurtis Alva M.D. hyponatremia Hospitalists R11.2 Nausea with vomiting, unspecified N40.0 Benign prostatic hyperplasia without lower urinry tract symp Office Visit 03/04/2019 1:45p [facility] Danny Gonzalez, R41.3 Other amnesia Services Of Tracy Mclaughlin G20 Parkinson's disease Office Visit 02/15/2019 11:00a [facility] Tracy Gordon, R55 Syncope and Of [facility] N.P. collapse Z95.0 Presence of cardiac pacemaker I25.10 Athscl heart disease of [place] coronary artery w/o ang pctrs I34.0 Nonrheumatic mitral (valve) insufficiency I10 Essential (primary) hypertension Office Visit 01/27/2019 2:30p [facility] Gigi Isaac, R55 Syncope and Services Of [facility] N.P. 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 04/01/2019 I25.118 Atherosclerotic heart disease of Tracy Gordon, N.P. [place] coronary artery with other forms of angina pectoris 04/01/2019 I10 Essential (primary) hypertension Tracy Gordon N.P. 04/01/2019 I48.0 Paroxysmal atrial fibrillation Tracy Gordon N.P. 04/01/2019 E78.00 Pure hypercholesterolemia, Tracy Gordon, N.P. unspecified 03/23/2019 K21.0 Gastro-esophageal reflux disease with Susan Porter M.D. esophagitis 03/23/2019 G47.33 Obstructive sleep apnea (adult) Susan Porter M.D. (pediatric) 03/23/2019 F03.90 Unspecified dementia without Susan Porter M.D. behavioral disturbance 03/23/2019 I25.118 Atherosclerotic heart disease of Susan Porter M.D. [place] coronary artery with other forms of angina pectoris 03/23/2019 Z95.0 Presence of cardiac pacemaker Susan Porter M.D. 03/23/2019 I10 Essential (primary) hypertension Susan Porter M.D. 03/23/2019 N40.1 Benign prostatic hyperplasia with Susan Porter M.D. lower urinary tract symptoms 03/23/2019 E78.00 Pure hypercholesterolemia, Susan Porter M.D. unspecified 03/23/2019 S41.101D Unspecified open wound of right upper Susan Porter M.D. arm, subsequent encounter 03/22/2019 Z95.0 Presence of cardiac pacemaker Vivek Nails M.D. 03/22/2019 Z95.0 Presence of cardiac pacemaker Ica Pacer Schedule 03/22/2019 I49.5 Sick sinus syndrome Ica Pacer Schedule 03/16/2019 N17.9 Acute kidney failure, unspecified Akosua Hernandez M.D. 03/16/2019 R11.2 Nausea with vomiting, unspecified Akosua Hernandez M.D. 03/16/2019 E86.0 Dehydration Akosua Hernandez M.D. 03/16/2019 K20.8 Other esophagitis Akosua Hernandez M.D. 03/16/2019 R82.90 Unspecified abnormal findings in Akosua Hernandez M.D. urine 03/15/2019 N17.9 Acute kidney failure, unspecified Akosua Hernandez M.D. 03/15/2019 K20.8 Other esophagitis Akosua Hernandez M.D. 03/15/2019 I25.10 Atherosclerotic heart disease of Akosua Hernandez M.D. [place] coronary artery without angina pectoris 03/15/2019 R82.90 Unspecified abnormal findings in Akosua Hernandez M.D. urine 03/14/2019 E87.1 Hypo-osmolality and hyponatremia Desiree Alva M.D. 03/14/2019 R11.2 Nausea with vomiting, unspecified Desiree Alva M.D. 03/14/2019 N40.0 Benign prostatic hyperplasia without Desiree Alva M.D. lower urinary tract symptoms 03/04/2019 R41.3 Other amnesia Danny Gonzalez M.D. 03/04/2019 G20 Parkinson's disease Danny Gonzalez M.D. 02/24/2019 G47.33 Obstructive sleep apnea (adult) Rachel Newman MD (pediatric) 02/21/2019 Z48.817 Encounter for surgical aftercare Chase Louie MD following surgery on the skin and subcutaneous tissue 02/15/2019 R94.31 Abnormal electrocardiogram [ECG] Des Bain M.D. [EKG] 02/15/2019 R55 Syncope and collapse Tracy Gordon N.P. 02/15/2019 Z95.0 Presence of cardiac pacemaker Tracy Gordon N.P. 02/15/2019 I25.10 Atherosclerotic heart disease of Tracy Gordon N.PRonaldo [place] coronary artery with 02/15/2019 I34.0 Nonrheumatic mitral (valve) Tracy Gordon N.P. insufficiency 02/15/2019 I10 Essential (primary) hypertension Tracy Gordon N.P. 02/14/2019 C44.319 Basal cell carcinoma of skin of other Chase Louie MD parts of face 01/27/2019 R55 Syncope and collapse Gigi Isaac, N.P. 01/27/2019 G47.10 Hypersomnia, unspecified Gigi Isaac, N.P. 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 01/27/2019 G20 Parkinson's disease Gigi Isaac N.P. 01/27/2019 R41.3 Other amnesia Gigi Isaac N.P. 12/22/2018 Z11.1 Encounter for screening for [...] Presence of cardiac pacemaker Ica Pacer Schedule Plan of Treatment Future Appointment(s):04/29/2019 2:00 pm - Gigi Isaac N.PRonaldo at [facility]08/22/2019 3:00 pm - Chase Louie MD at [facility] Gboyfdcogqt34/27/2020 4:00 pm - Chase Louie MD at [facility] Kinipfddlzq35/25/2019 - Tracy Gordon N.P.Z95.0 Presence of cardiac nasjkoillR87.118 Atherosclerotic heart disease of [place] coronary artery with other forms of angina [id number] Essential (primary) fhrpzpuyfunzS39.0 Paroxysmal atrial fibrillationReferral:Israel Mendoza MD, Cardiac ElectrophyslgyFollow up:OV 2019Recommendations:You had some fast heart rhythms when you were sick with erosive esophagitis. This abnormal rhythm can cause you to have stroke. It is too risky for you to be on blood thinners given your history of falling. I will send you to see physician to see if you are a candidate for a watchman procedure which will provide you with stroke prevention without being on a blood thinner. Send a remote transmission in 2 months, or a few days before appt with dr Mendoza.E78.00 Pure hypercholesterolemia, unspecified Functional Status Description No Information Available Mental Status Description No Information Available Referrals Refer to Reason for Referral Status Appt Date Israel Mendoza MD watchman procedure [address] [place] [address] [phone] Rachel Newman MD severe sleep apnea Sent [address] [place] [address] [phone] Rachel Newman MD Sent [address] [place] [address] [phone]
--- OUTSIDE RECORDS SUMMARY | 2019-04-06 10:18 | XMS REPORT | Continuity of Care Document ---
:1930 External Reference #:[id number] Author Name Susan Porter M.D. (transmitted by agent of provider Janet Serrano) Address [address] 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 Onset: 02/05/2016 outflow obstruction Minimal cognitive impairment Susan Porter M.D. Onset: 02/17/2017 Atherosclerotic heart disease of [place] Susan Porter M.D. Onset: 2016 coronary artery [...] Use Denies Drug Use Smoking Status Reviewed: 03/23/19 Patient has never smoked Exercise Type/Frequency Exercises [...] HCL Every Morning Unknown 03/14/2019 25mg Tablets Memantine HCL 1 tab by mouth 30tabs R55 Gigi Isaac, 02/21/2019 5mg daily N.P. Tablets Finasteride Every Day Unknown 04/16/2018 5mg Tablets Metoprolol Succinate Every Evening Unknown 04/16/2018 ER 25mg Tablets ER 24HR Aspirin Ec Low Dose Every Evening Unknown 08/27/[address] Co-Enzyme Q10 1 tablet by 90caps E78.0 Vivek OliviaRonaldo 07/30/2015 200mg mouth daily Lissette Nails Capsules [...] HCL 1 by mouth daily 30tabs Vivek OliviaRonaldo 25mg as needed for Lissette Nails Tablets sbp over 170 for 30 minutes or more History Medications Memantine HCL Every Evening Unknown 03/13/2019 - 10mg 03/22/2019 Tablets Memantine HCL 1 by mouth twice 60tabs R55 Gigi Isaac, 01/03/2019 - 5mg a day N.P. 01/26/2019 Tablets Memantine HCL take 1/2 pill 60tabs R55 Danny Gonzalez, 11/26/2018 - 10mg twice a day M.DRonaldo 01/03/2019 Tablets Medications Administered in Office Medication SIG Qnty Indications Ordering Provider Date BERNADINE Porter M.D. 12/20/2018 Injection Immunizations CPT Code Status Date Vaccine Reaction Lot # [id number] Given 04/19/2018 Fluzone High Dose No immediate reaction [id number] noted. 08392 Given 02/17/2017 Influenza Virus Vaccine, [id number] Quadrivalent, Split, Preservative Free 69653 Given 02/12/2016 Fluzone High Dose 61807 Given 02/01/2015 Pneumococcal Conjugate [id number] Vaccine 13 Valent For Intramuscular Use 86427 Given 06/08/2014 Zoster (Zostavax) Q2037 Given 02/13/2014 Fluvirin Im 3Yrs And Older 25854 Given 02/04/2013 Influenza Virus 3Yrs & Over 38035 Given 04/05/2012 Tdap - [id number] Tetanus/Diptheria/Acellular Pertussis Q2038 Given 03/19/2012 Fluzone Vaccine Q2038 Given 02/17/2011 Fluzone Vaccine 50879 Given 10/16/1997 Pneumovax (History By Patient) 84474 Given 07/18/1996 Td (History By Patient) Vital Signs Date Vital Result Comment 03/23/2019 4:14pm Height 68 inches 5'8" Weight 140.00 lb Heart Rate 70 /min BP Systolic 169 mmHg BP Diastolic 83 mmHg Body Temperature 96.9 F O2 % BldC Oximetry 98 % BMI (Body Mass Index) 21.3 kg/m2 03/04/2019 1:56pm Height 68 inches 5'8" Weight 143.25 lb Heart Rate 68 /min BP Systolic Sitting 140 mmHg BP Diastolic Sitting 84 mmHg BMI (Body Mass Index) 21.8 kg/m2 Results Test Date Facility Test Result H/L Range Note CBC Auto Diff 03/14/2019 [facility] White Blood 11.7 10^3/uL High 3.5-10.[address] [place] [address] [phone] Red Blood Count 3.62 10^6/uL Low 4.18-5.48 [...] Blood Cells % 0.0 Basic Metabolic 03/14/2019 [facility] Sodium 128 mmol/L Low 135-[address] [place] [address] [phone] Potassium 4.3 mmol/L Normal 3.5-5.0 Chloride 96 mmol/L Low 101-111 Co2 Carbon Dioxide 26 mmol/L Normal 22-32 Anion Gap 6 mmol/L Normal 2-11 Calcium 8.8 mg/dL Normal 8.6-10.3 Glucose 111 mg/dL High 70-100 Blood Urea Nitrogen 25 mg/dL High 6-24 Creatinine 1.57 mg/dL High 0.67-1.17 BUN/Creatinine Ratio 15.9 Normal 8-20 Egfr Non- 42.1 >60 Egfr 50.9 >60 1 Comp Metabolic Panel 03/13/2019 [facility] Sodium 126 mmol/L Low 135-145 [address] [place] [address] [phone] Potassium 4.1 mmol/L Normal 3.5-5.0 Chloride 92 [...] Egfr Non- 36.4 >60 Egfr 44.1 >60 2 Laboratory test 03/13/2019 [facility] Lipase 26 U/L Normal 11.0-82.[address] [place] [address] [phone] C Reactive Protein 54.64 mg/L High <8.01 CBC Auto 03/13/2019 [facility] White Blood 12.9 10^3/uL High 3.5-10.[address] [place] [address] [phone] Red Blood Count 4.07 10^6/uL Low 4.18-5.48 [...] Blood Cells % 0.0 Urinalysis Profile 03/13/2019 [facility] Urine Color Yellow [address] [place] [address] [phone] Urine Appearance Cloudy Urine Specific [place] 1.032 High 1.010-1.030 Urine pH 7.0 Normal [...] 1+ Abnormal Absent Urine Culture And 03/13/2019 [facility] Urine Culture SEE RESULT [address] [place] [address] [phone] Comp Metabolic 01/31/2019 [facility] Sodium 128 mmol/L Low 135 -[address] [place] [address] [phone] Potassium 4.8 mmol/L Normal 3.5-5.0 Chloride 95 [...] Egfr Non- 43.7 >60 Egfr 52.9 >60 4 CBC Auto 01/31/2019 [facility] White Blood 7.2 10^3/uL Normal 3.5-10.[address] [place] [address] [phone] Red Blood Count 3.91 10^6/uL Low 4.18-5.48 [...] Blood Cells % 0.0 CBC Auto 01/27/2019 [facility] White Blood 6.8 10^3/uL Normal 3.5-10.[address] [place] [address] [phone] Red Blood Count 3.84 10^6/uL Low 4.18-5.48 [...] Cells % 0.0 Comp Metabolic Panel 01/27/2019 [facility] Sodium 129 mmol/L Low 135-[address] [place] [address] [phone] Potassium 5.2 mmol/L High 3.5-5.0 Chloride 96 [...] Egfr Non- 35.7 >60 Egfr 43.2 >60 5 Urinalysis Profile 01/27/2019 [facility] Urine Color Aydee [address] [place] [address] [phone] Urine Appearance Turbid Urine Specific [place] 1.016 Normal 1.010-1.030 Urine pH 8.0 Normal 5-9 Urine Urobilinogen Negative Negative Urine Ketones Negative Negative Urine Protein 3+(>=500 mg/dL) Abnormal Negative Urine Leukocytes 1+ Abnormal Negative Urine Blood Negative Negative * * Abnormal Negative 6 Urine Nitrite Negative Negative Urine Bilirubin Negative Negative Urine Glucose Negative Negative Urine White Blood Cell 2+(11-20/hpf) Abnormal Absent Urine Red Blood Cell Trace(0-2/hpf) Absent Urine Bacteria 1+ Abnormal Absent Urine Triple Phosphate Cryst Present Abnormal Absent Urine Culture And 01/27/2019 [facility] Urine SEE RESULT [address] [place] [address] [phone] Vitamin B12 And 01/27/2019 [facility] Vitamin B12 645 pg/mL Normal 180-9 8 Folate Serum [address] [place] [address] [phone] Folic Acid (Folate) > 20.00 ng/mL >3.99 Laboratory test 01/27/2019 [facility] Erythrocyte Sed 8 mm/Hr Normal 0-[address] [place] [address] [phone] C Reactive Protein 1.49 mg/L Normal <8.01 Lipid Panel - 01/14/2019 [facility] Creatine 42 U/L Normal 10- 223 [address] Kinase([place]) [place] [address] [phone] Comp Metabolic 01/14/2019 [facility] Sodium 133 Low 135-[address] mmol/[place] [address] [phone] Chloride 98 mmol/L Low 101-111 Co2 Carbon [...] Egfr Non- 40.9 >60 Egfr 49.5 >60 10 Potassium 5.2 mmol/L High 3.5-5.0 Anion Gap 7 mmol/L Normal 2-11 Lipid Profile 01/14/2019 [facility] Triglycerides 99 mg/dL 11 (Trig/Chol/HDL) [address] [place] [address] [phone] Cholesterol 167 mg/dL 12 HDL Cholesterol 49.6 mg/dL 13 LDL Cholesterol 98 mg/dL 14 CBC Auto 01/14/2019 [facility] White Blood 6.0 10^3/uL Normal 3.5-10.[address] [place] [address] [phone] Red Blood Count 4.22 10^6/uL Normal 4.18-5.48 [...] 5 Kidney failure <15 (or dialysis) 3 SEE RESULT BELOW Name: SHEMAR TAVAREZ : [address]: Akosua Ly MD Acct: [id number] Unit: [id number] AGE: 88 Location: [place] [id number] Re03/14/19 SEX: M Status: ADM IN SPEC: [id number] TOREY: 03/14/19 [facility] DR: Evaristo TRIVEDI REQ: [id number] RECD: 03/14/19 STATUS: MADYSON CHAKRABORTY DR: [facility] Susan Porter III, MD _ SOURCE: URINE SPDESC: ORDERED: Urine Culture Procedure Result Reported Site Urine Culture Final 03/16/19- 0945 ML Organism 1 ENTEROCOCCUS FAECALIS Mcclave Count 75-100,000 (Many) CFU/ML Organism 2 KLEBSIELLA OXYTOCA [facility] Count 50-75,000 (Many) CFU/ML Organism 3 PSEUDOMONAS AERUGINOSA [place] Count 10-25,000 (Moderate) CFU/ML 1. ENTEROCOCCUS FAECALIS [...] CONTINUED ON NEXT PAGE DEPARTMENT OF PATHOLOGY, [address] [place] [address] Dash Beltre M.D. Director [facility] # [id number] Specimen: [id number] Collected: 03/14/19 Received: 03/14/19 (Continued) Procedure Result [...] These antibiotics are not available in the [facility] Formulary Contact the Microbiology Department for any additional antibiotic reporting. Contact the Microbiology Department for any additional antibiotic reporting. * ML - Main Lab . END OF REPORT DEPARTMENT OF PATHOLOGY, [address] [place] [address] Dash Beltre M.D. Director [facility] # [id number] 4 Because ethnic data is not always readily [...] 15-29 5 Kidney failure <15 (or dialysis) 5 Because ethnic data is not always [...] 5 Kidney failure <15 (or dialysis) 6 *Ascorbic acid is present which may interfere with detection of blood. 7 SEE RESULT BELOW Name: SHEMAR TAVAREZ : [address]: Gopi Isaac NP Acct: [id number] Unit: [id number] AGE: 88 Location: [facility] Re01/27/19 SEX: M Status: REG REF SPEC: [id number] TOREY: 01/27/19-[address]: Gopi Isaac [employer] REQ: [id number] RECD: 01/27/190833 STATUS: MADYSON CHAKRABORTY DR: Susan Porter III, MD _ SOURCE: URINE [facility]: ORDERED: Urine Culture Urine Source: Catheterization Procedure Result Reported Site Urine Culture Final 01/30/19- 1018 ML Organism 1 KLEBSIELLA OXYTOCA [facility]ave Count >100,000 (Many) CFU/ML Organism 2 PSEUDOMONAS AERUGINOSA [place]ave Count >100,000 (Many) CFU/ML 1. KLEBSIELLA OXYTOCA M.I.C. RX --------- ------ Ampicillin >=32 R Cefazolin 16 I Cefepime <=1 S Ceftriaxone <=1 S Ciprofloxacin <=0.25 S Gentamicin <=1 S Levofloxacin <=0.12 S Meropenem <=0.25 S Nitrofurantoin 32 S Tetracycline <=1 S Pipercillin/Tazobactam <=4 S Trimethoprim/Sulfamethoxazole <=20 S Amoxicillin/Clavulanic Acid 4 S Aztreonam <=1 S CONTINUED ON NEXT PAGE DEPARTMENT OF PATHOLOGY, [address] [place] [address] Dash Beltre M.D. Director [facility] # [id number] Patient: SHEMAR TAVAREZ [id number] (Continued) Specimen: [id number] Collected: 01/27/19 Received: 01/27/19 (Continued) Procedure Result Reported Site Urine Culture Final (continued) 01/30/19- 1018 2. PSEUDOMONAS AERUGINOSA M.I.C. RX --------- ------ Cefazolin >=64 R Cefepime <=1 S Ciprofloxacin <=0.25 S Gentamicin <=1 S Levofloxacin 0.25 S Meropenem <=0.25 S Pipercillin/Tazobactam <=4 S Contact the Microbiology Department for any additional antibiotic reporting. * ML - Main Lab . END OF REPORT DEPARTMENT OF PATHOLOGY, [address] [place] [address] Dash Beltre M.D. Director [facility] # [id number] 8 Normal Range 180 to 914 Indeterminate Range 145 to 180 Deficient Range <145 9 FASTING Copy Result to: SUSAN PORTER ([id number]) 10 Because ethnic data is not always readily [...] 15-29 5 Kidney failure <15 (or dialysis) 11 Desirable: <150 Borderline High: 150-199 High: 200-499 Very High: >500 12 Desirable: <200 Borderline High: 200-239 High: >239 13 Low: <40 Desirable: 40-60 High: >60 14 Desirable: <100 Near Optimal: 100-129 Borderline High: 130-159 High: 160-189 Very High: >189 Procedures Date Code Description Status 03/22/2019 17524 Pace Maker Jhoana Self/Sera Adjment Dual Lead Completed 02/24/2019 25785 Polysomnography Sleep Staging 4+ Parameters Completed 02/15/2019 16091 EKG Tracing & Interpretation Completed 02/14/2019 12297 Repair Immediate Wound < 2.6CM Completed Face/Ear/Eyelid/Nose/Lip/Muc Mem 02/14/2019 52440 Excise Malig Lesion 1.1-2CM Face/Ear/Eyelid/Nose/Lip Completed 10/01/2018 10862 Pace Maker Eval W/Iterative Adjment Dual Lead Completed 10/01/2018 35136 Pace Maker Eval W/Iterative Adjment Dual Lead Completed 09/24/2018 09958 Icd Eval Sing,Dual,Multi Lead Remote Recpt Transm Tech Completed Rev Tech S 09/24/2018 17073 Icd Eval Sing,Dual,Multi Lead Remote Recpt Transm Tech Completed Rev Tech S 09/24/2018 07553 Pacemaker Check Remote Up To 90Days Completed Single,Dual,Multiple Lead 09/24/2018 75535 Pacemaker Check Remote Up To 90Days Completed Single,Dual,Multiple Lead 06/16/2012 02373116 Colonoscopy Completed 06/19/2011 710329116 Bone Mineral Density Test Completed 08/02/1996 35197249 Colonoscopy Completed Medical Devices Description No Information Available Encounters Type Date Location Provider Dx Diagnosis Office Visit 03/04/2019 [facility] Danny Gonzalez, R41.3 Other amnesia 1:45p Services [facility] G20 Parkinson's disease Office Visit 02/15/2019 11:00a [facility] Tracy Gordon, R55 Syncope and Of Mower Sharpener N.PRonaldo collapse Z95.0 Presence of cardiac pacemaker I25.10 Athscl heart disease of [place] coronary artery w/o ang pctrs I34.0 Nonrheumatic mitral (valve) insufficiency I10 Essential (primary) hypertension Office Visit 01/27/2019 2:30p [facility] Gigi Isaac, R55 Syncope and Services Of Mower Sharpener N.PRonaldo collapse G47.10 Hypersomnia, unspecified 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 esophagitis 03/23/2019 G47.33 Obstructive sleep apnea (adult) Susan Porter M.D. (pediatric) 03/23/2019 F03.90 Unspecified dementia without Susan Porter M.D. behavioral disturbance 03/23/2019 I25.118 Atherosclerotic heart disease of Susan Porter M.D. [place] coronary artery with other forms of angina pectoris 03/23/2019 I10 Essential (primary) hypertension Susan Porter M.D. 03/23/2019 Z95.0 Presence of cardiac pacemaker Susan Porter M.D. 03/22/2019 Z95.0 Presence of cardiac pacemaker Ica Pacer Schedule 03/22/2019 I49.5 Sick sinus syndrome Ica Pacer Schedule 03/04/2019 R41.3 Other amnesia Danny Gonzalez M.D. 03/04/2019 G20 Parkinson's disease Danny Gonzalez M.D. 02/24/2019 G47.33 Obstructive sleep apnea (adult) Rachel Newman MD (pediatric) 02/21/2019 Z48.817 Encounter for surgical aftercare Chase Louie MD following surgery on the skin and subcutaneous tissue 02/15/2019 R94.31 Abnormal electrocardiogram [ECG] [EKG] Des Bain M.D. 02/15/2019 R55 Syncope and collapse Tracy Gordon N.P. 02/15/2019 Z95.0 Presence of cardiac pacemaker Tracy Gordon N.P. 02/15/2019 I25.10 Atherosclerotic heart disease of Tracy Gordon N.P. [place] coronary artery with 02/15/2019 I34.0 Nonrheumatic mitral [...] Isaac, N.P. 01/27/2019 R41.3 Other amnesia Gigi Isaac [...] 2:00 pm - Gigi Isaac N.P. at [facility]08/22/2019 3:00 pm - Chase Louie MD at [facility] Mbiwciwgxux41/27/2020 4:00 pm - Chase Louie MD at [facility] Pfnunopenjh05/16/2019 - Susan Porter M.D.K21.0 Gastro-esophageal reflux disease with eogvksgpepxL25.33 Obstructive sleep apnea (adult) (pediatric)F03.90 Unspecified dementia without behavioral iidejcsreitF74.118 Atherosclerotic heart disease of [place] coronary artery with other forms of angina pxpfcglfH53 Essential (primary ) hypertensionNew Labs:Basic Metabolic Panel, Ordered: 03/23/19Z95.0 Presence of cardiac pacemaker Functional Status Description No Information Available Mental Status Description No Information Available Referrals Refer to Reason for Referral Status Appt Date Rachel Newman MD severe sleep apnea Sent [address] [place] [address] [phone] Rachel Newman MD Sent [address] [place] [address] [phone]
[2019-04-06 12:52] VITALS: BP 162/97
--- NOTE | 2019-04-06 14:03 | UC ---
Skin Complaint HPI - HPI Summary HPI Summary: PATIENT FELL AT [facility] 2 DAYS AGO AND SCRAPED HIS RIGHT ELBOW ON CONCRETE. THOUGHT SHE COULD TAKE CARE OF IT AT HOME BUT TODAY DECIDED SHE WOULD HAVE IT EVALUATED. THERE IS NO SURROUNDING REDNESS OF THE SKIN. NO FEVER. NO DRAINAGE. NO ELBOW PAIN. UP-TO-DATE TETANUS. - History of Current Complaint Chief Complaint: UCSkin Time Seen by Provider: 04/06/19 12:29 Stated Complaint: WOUND ON ARM FROM A FALL Hx Obtained From: Patient, Family/Lacquer Sizer - Onset/Duration: Sudden Onset, Lasting Days, Still Present Timing: Constant Onset Severity: Mild Current Severity: Mild Pain Intensity: 0 Pain Scale Used: 0-10 Numeric Location: Discrete - RIGHT ELBOW Aggravating Factor(s): Touch Alleviating Factor(s): Nothing Associated Signs & Symptoms: Positive: Negative - Allergy/Home Medications Allergies/Adverse Reactions: Allergies Allergy/AdvReac Type Severity Reaction Status Date / Time niacin Allergy Flushing Verified 04/06/19 10:45 [From Niaspan Extended-Release] poison jacques extract Allergy Unknown Verified 04/06/19 10:45 Reaction Details Home Medications: Home Medications Ubidecarenone [Co Q-10] 200 mg PO DAILY 04/06/19 [History Confirmed 04/06/19] PMH/Surg Hx/FS Hx/Imm Hx Cardiovascular History: Hypertension Other Cancer History: SKIN CANCER - Surgical History Surgical History: Yes Surgery Procedure, Year, and Place: 1993-LEFT HIP REPLACEMENTREVISION LEFT HIP- [id number], [id number] - CATARACT;RIGHT TOTAL KNEE-2008- [id number] EYE CATARACTBypass Surgeries [id number] 2005EVENT MONITOR - DR BYRD-LARGE COLON MASS/POLYP w/ APPE- [id number] KNEE ITFTCPG86/2011- EVENT MONITORCARPAL TUNNEL RELEASE-RIGHT. RIGHT KNEE IN COLLEGE - Family History Known Family History: Positive: Hypertension - Social History Alcohol Use: Occasionally Alcohol Amount: ONE [place] nightly Substance Use Type: None Smoking Status (MU): Never Smoked Tobacco Have You Smoked in the Last Year: No - Immunization History Most Recent Influenza Vaccination: 2018 Most Recent Tetanus Shot: unknown Most Recent Pneumonia Vaccination: 2006 Review of Systems All Other Systems Reviewed And Are Negative: Yes Constitutional: Positive: Negative Skin: Positive: Other - SKIN TEAR Respiratory: Positive: Negative Cardiovascular: Positive: Negative Gastrointestinal: Positive: Negative Physical Exam Triage Information Reviewed: Yes Appearance: Well-Appearing, No Pain Distress, Well-Nourished Vital Signs: Initial Vital Signs Temp 97.9 F 04/06/19 10:43 Pulse 67 04/06/19 10:43 Resp 18 04/06/19 10:43 BP 154/72 04/06/19 10:43 Pulse Ox 99 04/06/19 10:43 Vital Signs Reviewed: Yes Eyes: Positive: Conjunctiva Clear ENT: Positive: Hearing grossly normal Neck: Positive: Supple Respiratory: Positive: No respiratory distress, No accessory muscle use Cardiovascular: Positive: Pulses Normal Abdomen Description: Positive: Soft Musculoskeletal: Positive: ROM Intact, No Edema, Other: - NO FOCAL BONY TENDERNESS Neurological: Positive: Alert Psychological: Positive: Age Appropriate Behavior Skin: Positive: Other - 4.5CM X 4CM SKIN TEAR RIGHT ELBOW Course/Dx - Course Course Of Treatment: NONVIABLE SKIN REMOVED USING FORCEPS AND SCISSORS. NO SIGN OF INFECTION. WOUND DRESSED WITH ANTIBIOTIC OINTMENT AND A NONSTICK BANDAGE. REEVALUATE IN 2 DAYS. - Diagnoses Provider Diagnosis: Skin tear of right elbow without complication Discharge ED - Sign-Out/Discharge Documenting (check all that apply): Patient Departure All imaging exams completed and their final reports reviewed: No Studies - Discharge Plan Condition: Stable Disposition: HOME Patient Education Materials: Skin Tear (ED) Referrals: Andrez Porter MD [Primary Care Provider] - 2 Days Additional Instructions: APPLY THIN LAYER ANTIBIOTIC OINTMENT UNDER BANDAGE. CHANGE BANDAGE DAILY AND NEEDED IF IT BECOMES SOILED OR WET. SEEK FOLLOW-UP IF YOU DEVELOP SPREADING REDNESS OF THE SKIN, PURULENT DRAINAGE, FEVER, INCREASED PAIN OR ANY OTHER CONCERNING SYMPTOMS. - Billing Disposition and Condition Condition: STABLE Disposition: Home
== END 2019-04-06 14:00 | disposition home or self-care (01) ==
LOC: UCEAST 10:11
DX: S51.011A Laceration without foreign body of right elbow, initial encounter (principal); Z88.1 Allergy status to other antibiotic agents; Z91.09 Other allergy status, other than to drugs and biological substances; W51.XXXA Accidental striking against or bumped into by another person, initial encounter; Y92.9 Unspecified place or not applicable
CPT/HCPCS: 99212; G0463

== ENCOUNTER 2021-07-22 03:08 | Inpatient (IN) ==
[2021-07-22] MEDS ORDERED: NS 0.9% 1000 ml BAG 1,000 ML IV ONE (03:22)
[2021-07-22] MEDS ORDERED: Piperacillin/Tazobac ADVAN 3.375 GM in NS 0.9% 100 ml BAG 100 ML IV ONE (03:26)
[2021-07-22 04:00] LABS: PCO2 Arterial 23 mmHg (35-45)
[2021-07-22 04:06] LABS: PO2 Arterial 55 mmHg (80-100)
[2021-07-22 04:07] LABS: Hematocrit 46 % (42-52); Hemoglobin 14.7 g/dL (14.0-18.0); Mean Corpuscular HGB Conc 32 g/dL (31-36); Mean Corpuscular Hemoglobin 30 pg (27-31); Mean Corpuscular Volume 95 fL (80-94); Mean Platelet Volume 9.5 fL (7.4-10.4); Platelet Count 232 10^3/uL (150-450); Red Blood Count 4.83 10^6 /uL (4.18-5.48); Red Cell Distribution Width 16 % (10-15); White Blood Count 9.9 10^3/uL (3.5-10.8)
[2021-07-22 04:19] LABS: ALT 40 U/L (7-52); AST 78 U/L (13-39); Albumin 3.9 g/dL (3.2-5.2); Albumin/Globulin Ratio 1.2 (1-3); Alkaline Phosphatase 62 U/L (35-149); Blood Urea Nitrogen 98 mg/dL (6-24); Calcium 9.6 mg/dL (8.6-10.3); Globulin 3.3 g/dL (2-4); Glucose 91 mg/dL (70-100); Potassium 3.3 mmol/L (3.5-5.0); Total Protein 7.2 g/dL (6.4-8.9); eGFR CKD-EPI 9.2 (>60)
[2021-07-22 04:22] LABS: Anion Gap 25 mmol/L (2-11); CO2 Carbon Dioxide 14 mmol/L (22-32); Chloride 124 mmol/L (101-111); Sodium 163 mmol/L (135-145)
[2021-07-22 04:42] LABS: ABS Lymphocytes 0.5 10^3/ul (1.0-4.8); ABS Monocytes 0.4 10^3/ul (0-0.8); ABS Nucleated RBC 0.1 10^3/ul; Lymphocyte % 4.9 %; Nucleated Red Blood Cells % 1.2
[2021-07-22 04:55] LABS: Troponin I 5.49 ng/mL (<0.03)
[2021-07-22] MEDS ORDERED: Lorazepam PYXIS KEY PRN (05:37)
[2021-07-22] MEDS ORDERED: LORazepam 2 mg VIAL 1 ml IV PUSH PRN (05:37)
[2021-07-22 13:58] VITALS: BP 0/0
[2021-07-22] MEDS: Atropine 1% (ORAL/SL) 15 ML BTL SL PRN (21:39)
[2021-07-23] MEDS: Atropine 1% (ORAL/SL) 15 ML BTL SL PRN (04:11)
== END 2021-07-23 06:50 | disposition expired | DRG 871 ==
LOC: ED 03:08 → EDHOLD 05:34 → MED 14:56
PROVIDERS: ADMIT Internal Medicine; ATTEND Hospitalist